=== PATIENT | female | born 1960 | race Caucasian/White ===

== ENCOUNTER 2016-12-10 08:12 | Inpatient (IN) | payer SELFPAY ==
[~2016-12-10] VITALS: Ht 154.9 cm; Wt 49.9 kg
[~2016-12-10 08:12] MED LIST: ACET-422 PO; ALPR0.25 PO; ALPR1TAB2 PO; ATOM40CA PO; CITA40TA5 PO; CLON2TAB PO; HYDR-2758 PO; HYDR-2762 PO; IBUP200T77 PO; LEVO125T PO; OMEP40CA5 PO; PANT40TA3 PO; PROP40TA PO; RISP0.5T3 PO; TRAM50TA PO
--- NOTE | 2016-12-10 08:39 | PHYS DOC ---
Past Medical History Past Medical History: Anxiety, COPD, Depression, Hypothyroid, Hepatitis Additional Past Medical Histor: HEP C, hypoxemia,ESOPHAGEAL VARISES, UTI Past Surgical History: Hysterectomy, Other Additional Past Surgical Histo: THYROID SX, ankle fx Smoking: Cigarettes Alcohol Use: None Drug Use: None Adult General Chief Complaint Chief Complaint: SHORTNESS OF BREATH HPI HPI Patient is a 56 year old female presents to the emergency department with a history of COPD. Patient states she had gone camping last weekend and developed SOA and difficulty breathing since Wednesday. Patient states she has taken over the counter medications for cough, congestion, and sinus issues without relief. Patient states she still smokes, Denies use of supplemental oxygen at home. Patient states she has had chills at home. Patient also states she has had tick bites times 2 with one tick being on her body for 3-4 days. She denies rash or any bulls eye appearance where the tick bites were located. Patient also states she has had diarrhea, denies abdominal pain, denies nausea or vomiting. Review of Systems Review of Systems Constitutional: fever and chills Eyes: Denies change in visual acuity, redness, or eye pain [] HENT: Denies nasal congestion or sore throat [] Respiratory: cough and SOA Cardiovascular: No additional information not addressed in HPI [] GI: Denies abdominal pain, nausea, vomiting, bloody stools or diarrhea. C/o diarrhea : Denies dysuria or hematuria [] Musculoskeletal: Denies back pain or joint pain [] Integument: Denies rash or skin lesions [] Neurologic: Denies headache, focal weakness or sensory changes [] Endocrine: Denies polyuria or polydipsia [] Current Medications Current Medications Current Medications Medications (Trade) Dose Ordered Sig/Latonya Start Time Stop Time Status Last Admin Dose Admin Albuterol/ Ipratropium (Duoneb) 3 ml 1X ONCE 12/10/16 09:00 12/10/16 09:01 DC 12/10/16 08:38 3 ML Ceftriaxone Sodium 1 gm/ Sodium Chloride 50 ml @ 100 mls/hr Q24H 12/11/16 09:00 Ceftriaxone Sodium 50 ml @ 100 mls/hr 1X ONCE 12/10/16 09:30 12/10/16 09:59 Doxycycline Hyclate 100 mg/ Dextrose 100 ml @ 50 mls/hr BID 12/10/16 10:00 12/10/16 09:25 50 MLS/HR Ibuprofen (Motrin) 600 mg 1X ONCE 12/10/16 09:00 12/10/16 09:01 DC 12/10/16 08:48 600 MG Methylprednisolone Sodium Succinate (SOLU-Medrol 125MG VIAL) 125 mg 1X ONCE 12/10/16 09:00 12/10/16 09:01 DC 12/10/16 08:46 125 MG Sodium Chloride 1,000 ml @ 1,000 mls/hr 1X ONCE 12/10/16 09:00 12/10/16 09:59 12/10/16 08:44 1,000 MLS/HR Allergies Allergies Allergies Coded Allergies Type Severity Reaction Last Updated Verified clindamycin Allergy Severe Hives 11/10/15 Yes morphine Adverse Reaction Intermediate PRURITIS 12/19/15 Yes Physical Exam Physical Exam Constitutional: Well developed, well nourished, no acute distress, non-toxic appearance. [] HENT: Normocephalic, atraumatic, bilateral external ears normal, oropharynx moist, no oral exudates, nose normal. [] Eyes: PERRLA, EOMI, conjunctiva normal, no discharge. [] Neck: Normal range of motion, no tenderness, supple, no stridor. [] Cardiovascular:Heart rate regular rhythm, no murmur [] Lungs & Thorax: Bilateral breath sounds decreased right anterior mid chest area Abdomen: Bowel sounds hypoactive, soft, no tenderness, no masses, no pulsatile masses. [] Skin: Warm, dry, no erythema, no rash. [] Back: No tenderness Extremities: No tenderness, no cyanosis, no clubbing, ROM intact, no edema. [] Neurologic: Alert and oriented X 3, normal motor function, normal sensory function, no focal deficits noted. [] Psychologic: Affect normal, judgement normal, mood normal. [] Current Patient Data Vital Signs Vital Signs Date Time Temp Pulse Resp B/P (MAP) Pulse Ox O2 Delivery O2 Flow Rate FiO2 12/10/16 09:27 98 20 110/61 (77) 96 12/10/16 08:38 Nasal Cannula 2.0 12/10/16 08:22 103.0 103.0 Lab Values Laboratory Tests Test 12/10/16 08:20 White Blood Count 8.8 x10^3/uL (4.0-11.0) Red Blood Count 4.71 x10^6/uL (3.50-5.40) Hemoglobin 14.9 g/dL (12.0-15.5) Hematocrit 43.4 % (36.0-47.0) Mean Corpuscular Volume 92 fL (79-100) Mean Corpuscular Hemoglobin 32 pg (25-35) Mean Corpuscular Hemoglobin Concent 34 g/dL (31-37) Red Cell Distribution Width 14.5 % (11.5-14.5) Platelet Count 143 x10^3/uL (140-400) Neutrophils (%) (Auto) 86 % (31-73) H Lymphocytes (%) (Auto) 10 % (24-48) L Monocytes (%) (Auto) 3 % (0-9) Eosinophils (%) (Auto) 0 % (0-3) Basophils (%) (Auto) 0 % (0-3) Neutrophils # (Auto) 7.6 x10^3uL (1.8-7.7) Lymphocytes # (Auto) 0.9 x10^3/uL (1.0-4.8) L Monocytes # (Auto) 0.3 x10^3/uL (0.0-1.1) Eosinophils # (Auto) 0.0 x10^3/uL (0.0-0.7) Basophils # (Auto) 0.0 x10^3/uL (0.0-0.2) Platelet Estimate Pending Sodium Level 134 mmol/L (136-145) L Potassium Level 3.4 mmol/L (3.5-5.1) L Chloride Level 98 mmol/L (98-107) Carbon Dioxide Level 22 mmol/L (21-32) Anion Gap 14 (6-14) Blood Urea Nitrogen 12 mg/dL (7-20) Creatinine 1.0 mg/dL (0.6-1.0) Estimated GFR (Cockcroft-Gault) 57.8 BUN/Creatinine Ratio 12 (6-20) Glucose Level 189 mg/dL (70-99) H Lactic Acid Level 1.6 mmol/L (0.4-2.0) Calcium Level 7.7 mg/dL (8.5-10.1) L Total Bilirubin 0.3 mg/dL (0.2-1.0) Aspartate Amino Transferase (AST) 32 U/L (15-37) Alanine Aminotransferase (ALT) 14 U/L (14-59) Alkaline Phosphatase 78 U/L (46-116) Troponin I Quantitative < 0.017 ng/mL (0.000-0.055) Total Protein 7.6 g/dL (6.4-8.2) Albumin 3.4 g/dL (3.4-5.0) Albumin/Globulin Ratio 0.8 (1.0-1.7) L Laboratory Tests 12/10/16 08:20 Laboratory Tests 12/10/16 08:20 EKG EKG EKG completed [place] [address] noted HR 101 no STEMI noted, patient with new lateral ST depression.[] Radiology/Procedures Radiology/Procedures [facility] [address] [place], [place] [id number] IMAGING REPORT Signed PATIENT: AVA BARNEY ACCOUNT: [id number] : 1960 LOCATION: ER AGE: 56 SEX: F EXAM STATUS: PRE ER ORD. PHYSICIAN: EUSEBIO MAYNARD APRN REASON: SOA, COPD decreased breath sound right anterior chest PROCEDURE: PORTABLE CHEST 1V Indication chills bodyache shortness of air and cough. A single view of the chest was obtained. Comparison is made to an examination 10/12/2015. The heart and pulmonary vessels are normal. There are suspect background changes of emphysema or fibrosis. There is retrocardiac density and a density in the right lower lung field. Findings are compatible with pneumonia. Follow-up imaging, to resolution is advised. There is no significant pleural fluid. There is no pneumothorax. IMPRESSION: Densities in both lungs suggesting pneumonia. Follow-up imaging, to resolution, advised. DICTATED and SIGNED BY: ESTHER ABREU MD DATE: 12/10/16857 CC: EUSEBIO MAYNARD APRN; DAY ELIAS ~ ] Course & Med Decision Making Course & Med Decision Making Pertinent Labs and Imaging studies reviewed. (See chart for details) Patients O2 sat on RA 85% she was provided with supplemental O2 at 2 Liters to obtain saturation of 90%. RT treatment duoneb provided for patient with labs pending, CBC, CMP, troponin, lactic acid. EKG completed and evaluated by Dr Lopez X-ray suggestive for pneumonia, Spoke with Dr Howard in regards to admission for this patient. Orders placed in computer with IV antibiotics, solumedrol and RT treatments. Patient is aware of admission. [] Dragon Disclaimer Dragon Disclaimer This electronic medical record was generated, in whole or in part, using a voice recognition dictation system. Departure Departure Impression: Primary Impression: Pneumonia Disposition: ADMITTED INPATIENT Admitting Physician: Other (Spoke with Dr Cochran) Condition: STABLE Referrals: DAY ELIAS (PCP) EUSEBIO MAYNARD APRN Dec 10, 2016 08:39
[2016-12-10 08:45] LABS: BASO % 0 % (0-3); EOS % 0 % (0-3); HEMATOCRIT 43.4 % (36.0-47.0); HEMOGLOBIN 14.9 g/dL (12.0-15.5); LYMPH # 0.9 x10^3/uL (1.0-4.8); LYMPH % 10 % (24-48); MEAN CORPUSCULAR HEMOGLOBIN 32 pg (25-35); MEAN CORPUSCULAR HGB CONC 34 g/dL (31-37); MEAN CORPUSCULAR VOLUME 92 fL (79-100); MONO % 3 % (0-9); NEUT % 86 % (31-73); PLATELET COUNT 143 x10^3/uL (140-400); RED BLOOD COUNT 4.71 x10^6/uL (3.50-5.40); RED CELL DISTRIBUTION WIDTH 14.5 % (11.5-14.5); WHITE BLOOD COUNT 8.8 x10^3/uL (4.0-11.0)
[2016-12-10 08:53] LABS: CALCIUM 7.7 mg/dL (8.5-10.1); GFR 57.8; POTASSIUM 3.4 mmol/L (3.5-5.1)
[2016-12-10 08:59] LABS: ALBUMIN 3.4 g/dL (3.4-5.0); ALBUMIN/GLOBULIN RATIO 0.8 (1.0-1.7); TOTAL BILIRUBIN 0.3 mg/dL (0.2-1.0); TOTAL PROTEIN 7.6 g/dL (6.4-8.2)
[2016-12-10] MEDS ORDERED: IBUPROFEN 600 MG TABLET. PO ONE (09:00)
[2016-12-10] MEDS ORDERED: IPRATRPIUM/ALBUTEROL 0.5/2.5MG 3 ML NEBU. NEB ONE (09:00)
[2016-12-10] MEDS ORDERED: methylPREDNISolone SOD SUCC PF 125 MG/2 ML VIAL. IV ONE (09:00)
[2016-12-10] MEDS ORDERED: IV NORMAL SALINE 1000ML BAG 1,000 ML IV ONE (09:00)
--- NOTE | 2016-12-10 09:03 | RAD ---
Indication chills bodyache shortness of air and cough. A single view of the chest was obtained. Comparison is made to an examination 10/12/2015. The heart and pulmonary vessels are normal. There are suspect background changes of emphysema or fibrosis. There is retrocardiac density and a density in the right lower lung field. Findings are compatible with pneumonia. Follow-up imaging, to resolution is advised. There is no significant pleural fluid. There is no pneumothorax. IMPRESSION: Densities in both lungs suggesting pneumonia. Follow-up imaging, to resolution, advised.
--- NOTE | 2016-12-10 09:08 | EKG ---
[facility] [address] [place] [address] Test Date: 2016-12-10 Test Time: 08:29:24 Pat Name: AVA BARNEY Department: Room: Gender: F Stars Specialist: : 1960 Requested By: EUSEBIO MAYNARD Order Number: [id number] Reading MD: Measurements Intervals [place] Rate: 101 P: 65 VA: 114 QRS: 89 QRSD: 84 T: 64 QT: 340 QTc: 442 Interpretive Statements SINUS TACHYCARDIA QRS(T) CONTOUR ABNORMALITY CONSIDER ANTEROLATERAL MYOCARDIAL DAMAGE POSSIBLY ABNORMAL ECG RI6.01 No previous ECG available for comparison
[2016-12-10 09:20] LABS: BILIRUBIN,URINE SMALL (NEG); GLUCOSE,URINE NEGATIVE (NEG); NITRITE,URINE NEGATIVE (NEG); PROTEIN,URINE 100 mg/dL (NEG-TRACE); UROBILINOGEN,URINE 0.2 mg/dL (0.2 mg/dL)
[2016-12-10] MEDS: DOXYCYCLINE HYCLATE 100 MG in IV DEXTROSE 5% 100 ML IV SCH ×2 (09:25→20:53)
[2016-12-10 09:29] LABS: RBC,URINE 0 /HPF (0-2)
[2016-12-10 09:30] LABS: BACTERIA,URINE FEW /HPF (0-FEW); SQUAMOUS EPITHELIAL CELL,UR MANY /LPF
[2016-12-10] MEDS ORDERED: IPRATRPIUM/ALBUTEROL 0.5/2.5MG 3 ML NEBU. NEB PRN (09:30)
[2016-12-10 09:36] LABS: PLT ESTIMATE ADEQUATE (ADEQUATE)
[2016-12-10 11:00] VITALS: BP 87/55
[2016-12-10] MEDS: IV NORMAL SALINE 1000ML BAG 1,000 ML IV SCH (11:20)
[2016-12-10] MEDS ORDERED: LEVO100T5 PO (11:54)
[2016-12-10] MEDS ORDERED: ALPR1TAB6 PO (11:54)
[2016-12-10] MEDS: ALBUTEROL SULFATE 2.5 MG/3 ML NEBU. NEB SCH ×4 (12:20→23:43)
--- NOTE | 2016-12-10 13:56 | PDOC1 ---
History and Physical Date of Admission Date of Admission DATE: 12/10/16 TIME: 13:00 Identification/Chief Complaint Chief Complaint CAP Diarrhea Problems: Source Source: Patient History of Present Illness History of Present Illness Mrs Russell is a 56 y/o woman with COPD, who presented to the ER with shortness on breath, cough and general aches and pains for the past week. She relates this actually started about 1 week ago with GI symptoms, incl nausea without vomiting and diarrhea, generalized myalgias/arthralgias but no fevers or chills. She had been camping with family. A few days later, she developed respiratory symptoms which gradually got worse. She also mentions finding several ticks, but no skin findings at the sites. In the ER, she was found hypoxic to 85%, and the CXR showed bilateral infiltrates suggestive of pneumonia. Past Medical History Pulmonary: COPD GI: Diverticulosis, Other (HCV, esophageal varices) Hepatobiliary: Hep A/B/C Psych: Anxiety, Depression Infectious disease: Other (HCV) Endocrine: Hypothyroidism Past Surgical History Past Surgical History: Hysterectomy Family History Family History: Diabetes Social History Smoke: <1 pack per day ALCOHOL: none Drugs: None Current Medications Current Medications Active Scripts Active Ibuprofen 200 Mg Tablet 200 Mg PO PRN Q6HRS PRN Reported Alprazolam 1 Mg Tablet 1 Tab PO TID Levothyroxine Sodium 100 Mcg Tablet 1 Tab PO DAILY Acetaminophen Pm Caplet (Acetaminophen/Diphenhydramine) 1 Each Tablet 2 Each PO HS Allergies Allergies: Coded Allergies: clindamycin (Verified Allergy, Severe, Hives, 11/10/15) morphine (Verified Adverse Reaction, Intermediate, PRURITIS, 12/19/15) ROS Review of System positive as per HPI. rest of organ system review is without findings Physical Exam General: Alert, Oriented X3, Cooperative, No acute distress Lungs: Clear to auscultation Heart: RRR Abdomen: Normal bowel sounds, Soft, Other (mild generalized TTP, sl worse in LLQ) Extremities: No edema Skin: No rashes Psych/Mental Status: Mood NL Vitals Vitals Vital Signs Date Time Temp Pulse Resp B/P (MAP) Pulse Ox O2 Delivery O2 Flow Rate FiO2 12/10/16 12:20 92 Room Air 12/10/16 11:00 98.7 81 20 87/55 (66) 98.7 12/10/16 08:38 2.0 Labs Labs Laboratory Tests Test 12/10/16 08:20 12/10/16 09:10 White Blood Count 8.8 x10^3/uL (4.0-11.0) Red Blood Count 4.71 x10^6/uL (3.50-5.40) Hemoglobin 14.9 g/dL (12.0-15.5) Hematocrit 43.4 % (36.0-47.0) Mean Corpuscular Volume 92 fL (79-100) Mean Corpuscular Hemoglobin 32 pg (25-35) Mean Corpuscular Hemoglobin Concent 34 g/dL (31-37) Red Cell Distribution Width 14.5 % (11.5-14.5) Platelet Count 143 x10^3/uL (140-400) Neutrophils (%) (Auto) 86 % (31-73) Lymphocytes (%) (Auto) 10 % (24-48) Monocytes (%) (Auto) 3 % (0-9) Eosinophils (%) (Auto) 0 % (0-3) Basophils (%) (Auto) 0 % (0-3) Neutrophils # (Auto) 7.6 x10^3uL (1.8-7.7) Lymphocytes # (Auto) 0.9 x10^3/uL (1.0-4.8) Monocytes # (Auto) 0.3 x10^3/uL (0.0-1.1) Eosinophils # (Auto) 0.0 x10^3/uL (0.0-0.7) Basophils # (Auto) 0.0 x10^3/uL (0.0-0.2) Segmented Neutrophils % 50 % (35-66) Band Neutrophils % 32 % (0-9) Lymphocytes % 10 % (24-48) Monocytes % 1 % (0-10) Metamyelocytes % 7 % (0-0) Dohle Bodies Present Platelet Estimate Adequate (ADEQUATE) Sodium Level 134 mmol/L (136-145) Potassium Level 3.4 mmol/L (3.5-5.1) Chloride Level 98 mmol/L (98-107) Carbon Dioxide Level 22 mmol/L (21-32) Anion Gap 14 (6-14) Blood Urea Nitrogen 12 mg/dL (7-20) Creatinine 1.0 mg/dL (0.6-1.0) Estimated GFR (Cockcroft-Gault) 57.8 BUN/Creatinine Ratio 12 (6-20) Glucose Level 189 mg/dL (70-99) Lactic Acid Level 1.6 mmol/L (0.4-2.0) Calcium Level 7.7 mg/dL (8.5-10.1) Total Bilirubin 0.3 mg/dL (0.2-1.0) Aspartate Amino Transf (AST/SGOT) 32 U/L (15-37) Alanine Aminotransferase (ALT/SGPT) 14 U/L (14-59) Alkaline Phosphatase 78 U/L (46-116) Troponin I Quantitative < 0.017 ng/mL (0.000-0.055) Total Protein 7.6 g/dL (6.4-8.2) Albumin 3.4 g/dL (3.4-5.0) Albumin/Globulin Ratio 0.8 (1.0-1.7) Urine Collection Type Void Urine Color Yellow Urine Clarity Clear Urine pH 6.0 Urine Specific [place] 1.020 Urine Protein 100 mg/dL (NEG-TRACE) Urine Glucose (UA) Negative mg/dL (NEG) Urine Ketones (Stick) 40 mg/dL (NEG) Urine Blood Negative (NEG) Urine Nitrite Negative (NEG) Urine Bilirubin Small (NEG) Urine Urobilinogen Dipstick 0.2 mg/dL (0.2 mg/dL) Urine Leukocyte Esterase Negative (NEG) Urine RBC 0 /HPF (0-2) Urine WBC 1-4 /HPF (0-4) Urine Squamous Epithelial Cells Many /LPF Urine Bacteria Few /HPF (0-FEW) Urine Mucus Slight /LPF Laboratory Tests Test 12/10/16 08:20 12/10/16 09:10 White Blood Count 8.8 x10^3/uL (4.0-11.0) Red Blood Count 4.71 x10^6/uL (3.50-5.40) Hemoglobin 14.9 g/dL (12.0-15.5) Hematocrit 43.4 % (36.0-47.0) Mean Corpuscular Volume 92 fL (79-100) Mean Corpuscular Hemoglobin 32 pg (25-35) Mean Corpuscular Hemoglobin Concent 34 g/dL (31-37) Red Cell Distribution Width 14.5 % (11.5-14.5) Platelet Count 143 x10^3/uL (140-400) Neutrophils (%) (Auto) 86 % (31-73) Lymphocytes (%) (Auto) 10 % (24-48) Monocytes (%) (Auto) 3 % (0-9) Eosinophils (%) (Auto) 0 % (0-3) Basophils (%) (Auto) 0 % (0-3) Neutrophils # (Auto) 7.6 x10^3uL (1.8-7.7) Lymphocytes # (Auto) 0.9 x10^3/uL (1.0-4.8) Monocytes # (Auto) 0.3 x10^3/uL (0.0-1.1) Eosinophils # (Auto) 0.0 x10^3/uL (0.0-0.7) Basophils # (Auto) 0.0 x10^3/uL (0.0-0.2) Segmented Neutrophils % 50 % (35-66) Band Neutrophils % 32 % (0-9) Lymphocytes % 10 % (24-48) Monocytes % 1 % (0-10) Metamyelocytes % 7 % (0-0) Dohle Bodies Present Platelet Estimate Adequate (ADEQUATE) Sodium Level 134 mmol/L (136-145) Potassium Level 3.4 mmol/L (3.5-5.1) Chloride Level 98 mmol/L (98-107) Carbon Dioxide Level 22 mmol/L (21-32) Anion Gap 14 (6-14) Blood Urea Nitrogen 12 mg/dL (7-20) Creatinine 1.0 mg/dL (0.6-1.0) Estimated GFR (Cockcroft-Gault) 57.8 BUN/Creatinine Ratio 12 (6-20) Glucose Level 189 mg/dL (70-99) Lactic Acid Level 1.6 mmol/L (0.4-2.0) Calcium Level 7.7 mg/dL (8.5-10.1) Total Bilirubin 0.3 mg/dL (0.2-1.0) Aspartate Amino Transf (AST/SGOT) 32 U/L (15-37) Alanine Aminotransferase (ALT/SGPT) 14 U/L (14-59) Alkaline Phosphatase 78 U/L (46-116) Troponin I Quantitative < 0.017 ng/mL (0.000-0.055) Total Protein 7.6 g/dL (6.4-8.2) Albumin 3.4 g/dL (3.4-5.0) Albumin/Globulin Ratio 0.8 (1.0-1.7) Urine Collection Type Void Urine Color Yellow Urine Clarity Clear Urine pH 6.0 Urine Specific [place] 1.020 Urine Protein 100 mg/dL (NEG-TRACE) Urine Glucose (UA) Negative mg/dL (NEG) Urine Ketones (Stick) 40 mg/dL (NEG) Urine Blood Negative (NEG) Urine Nitrite Negative (NEG) Urine Bilirubin Small (NEG) Urine Urobilinogen Dipstick 0.2 mg/dL (0.2 mg/dL) Urine Leukocyte Esterase Negative (NEG) Urine RBC 0 /HPF (0-2) Urine WBC 1-4 /HPF (0-4) Urine Squamous Epithelial Cells Many /LPF Urine Bacteria Few /HPF (0-FEW) Urine Mucus Slight /LPF VTE Prophylaxis Ordered VTE Prophylaxis Devices: No VTE Pharmacological Prophylaxi: Yes Assessment/Plan Assessment/Plan Mrs Russell is a 56 y/o woman with COPD, who presented with SOB to the ER and was found with bilateral PNA. She has been started on doxy and ceftriax in the ER; will continue for now. Steroids and nebulizers for COPD exacerbation will continue. she has both mucolytic and cough suppressnats available, as cough is causing bowel incontinence. She denies any history of antibiotics in the past 6 months, and her presentation is suspicious for either viral or toxic gastroenteritis. Will treat symptomatically with imodium. Dehydration resulting from diarrhea and acute anorexia will be addressed with IV fluids. Diet as tolerated. Magnesium and potassum will be repleted and monitored by labs. Her home medication of alprazolam and Tylenol PM will be continued. She will receive lovenox prophylaxis. KRISTOFER ALBA MD Dec 10, 2016 13:56
[2016-12-10] MEDS ORDERED: LOPERAMIDE 2 MG CAPSULE PO PRN (14:00)
[2016-12-10] MEDS: POTASSIUM CHLORIDE 20 MEQ TABLET.ER. PO SCH ×2 (14:11→20:26)
[2016-12-10] MEDS: guaiFENesin/CODEINE 100mg/10mg 5 ML LIQUID PO PRN ×2 (14:11→19:08)
[2016-12-10] MEDS: LOPERAMIDE 2 MG CAPSULE PO PRN ×4 (14:12→21:39)
[2016-12-10 14:38] VITALS: BP 87/55
[2016-12-10 15:00] VITALS: BP 89/56
[2016-12-10] MEDS: LEVOTHYROXINE 100 MCG TABLET PO SCH (16:27)
[2016-12-10] MEDS: ALPRAZolam 1 MG TABLET PO SCH ×2 (16:27→20:27)
[2016-12-10 19:00] VITALS: BP 94/60
[2016-12-10] MEDS ORDERED: MAGNESIUM SULFATE 2GM 50 ML IV ONE (19:00)
[2016-12-10] MEDS ORDERED: methylPREDNISolone SOD SUCC PF 125 MG/2 ML VIAL. IV SCH (21:00)
[2016-12-10] MEDS ORDERED: ALPRAZolam 1 MG TABLET PO SCH (21:00)
[2016-12-10] MEDS: diphenhydrAMINE HCL 25 MG CAPSULE PO PRN (21:39)
[2016-12-10] MEDS ORDERED: ONDANSETRON PF 4 MG/2 ML VIAL. IV PRN (22:30)
[2016-12-10 23:00] VITALS: BP 115/74
[2016-12-10] MEDS: metroNIDAZOLE 500 MG TABLET PO SCH (23:04)
--- NOTE | 2016-12-11 00:19 | ACF ---
Admission Forms Criteria PNEUMONIA, COMMUNITY ACQUIRED Clinical Indications for Admission to Inpatient Care (Place 'X' for any and all applicable criteria): Admission to inpatient status for two midnights or more is indicated for ANY ONE of the following (1)(2)(3): [ ]I. Hypoxia [ ]II. Hemodynamic instability [ ]III. Altered mental status that is severe or persistent [ ]IV. Dehydration that is severe or persistent. [ ]V. Bacteremia [ ]. Moderate-risk or high-risk category patients (Pneumonia Severity Index ( PSI) class IV or V, or CURB-65 score of 3 or greater). [ ]VII. Intermediate-risk category patients (e.g., PSI class III or CURB-65 score 2) who do not improve with outpatient and observation care treatment [ ]VIII. Outpatient treatment failure as indicated by 1 or more of the following(9): [ ]a) Failure to respond to antibiotic (eg, resistant organism) [ ]b) Clinically significant adverse effects from medication (eg, vomiting) [ ]c) Complications of pneumonia (eg, empyema, bacteremia) [ ]d) Significant worsening of comorbid cond necessitating inpatient care (eg, chronic heart failure) [X]IX. Appropriate diagnostic testing and treatment unavailable in outpatient or recovery facility (eg, testing or infection control measures unavailable) [ ]X. Respiratory finding (eg. tachypnea) that do not respond to outpatient observation care treatment [ ]XI. Complicated pleural effusions (eg, emphysema, exudative, loculated) [ ]XII. Immunocompromised patients (e.g., AIDS, chronic steroid use) at moderate or high risk based on clinical evaluation. Extended stay beyond goal length of stay may be needed for (20) [ ]a) Unclear diagnosis [ ]b) Pleural disease [ ]c) Severe pneumonia or treatment failure [ ]d) Respiratory failure [ ]e) New onset hyponatremia (serum Na concentration less than 135 mEq/L(mmol/ L) [ ]f) Clinically significant comorbid illness (eg, heart failure, atrial fibrillation with rapid heart rate, alcohol withdrawal, renal insufficiency)(34)(35) [ ]g) Comorbid acute exacerbation of COPD(36) [ ]h) Concomitant diagnosis of malignancy [ ]i) Concomitant altered mental status [ ]j) Culture-identified Gram-negative or antibiotic-resistant organism (eg, Pseudomonas, methicillin-resistant Staphylococcus aureus MRSA)(30) [ ]k) Healthcare-associated pneumonia (36) The original [facility] content created by [facility] has been revised. The portions of the content which have been revised are identified through the use of italic text, and [facility] has neither reviewed nor approved the modified material. All other unmodified content is copyright [facility]. Please see references footnoted in the original [facility] edition 2015 Admission Criteria Met?: Yes KARLY WOODARD Dec 11, 2016 00:19 KRISTOFER ALBA MD Dec 12, 2016 20:25
[2016-12-11] MEDS ORDERED: PROCHLORPERAZINE 10 MG/2 ML VIAL. IV PRN (01:45)
[2016-12-11] MEDS ORDERED: ONDANSETRON PF 4 MG/2 ML VIAL. IV PRN (01:45)
[2016-12-11] MEDS ORDERED: ONDANSETRON PF 4 MG/2 ML VIAL. IV ONE (02:00)
[2016-12-11 03:19] VITALS: BP 94/61
[2016-12-11] MEDS: IV NORMAL SALINE 1000ML BAG 1,000 ML IV SCH (03:47)
[2016-12-11] MEDS: ALBUTEROL SULFATE 2.5 MG/3 ML NEBU. NEB SCH ×6 (04:00→23:15)
[2016-12-11] MEDS: guaiFENesin/CODEINE 100mg/10mg 5 ML LIQUID PO PRN ×3 (04:57→21:04)
[2016-12-11 05:51] LABS: BASO % 0 % (0-3); EOS % 0 % (0-3); HEMATOCRIT 40.2 % (36.0-47.0); HEMOGLOBIN 13.2 g/dL (12.0-15.5); LYMPH # 0.9 x10^3/uL (1.0-4.8); LYMPH % 6 % (24-48); MEAN CORPUSCULAR HEMOGLOBIN 31 pg (25-35); MEAN CORPUSCULAR HGB CONC 33 g/dL (31-37); MEAN CORPUSCULAR VOLUME 95 fL (79-100); MONO % 2 % (0-9); NEUT % 92 % (31-73); PLATELET COUNT 150 x10^3/uL (140-400); RED BLOOD COUNT 4.25 x10^6/uL (3.50-5.40); WHITE BLOOD COUNT 15.7 x10^3/uL (4.0-11.0)
[2016-12-11] MEDS: LEVOTHYROXINE 100 MCG TABLET PO SCH (05:53)
[2016-12-11 06:06] LABS: CALCIUM 7.4 mg/dL (8.5-10.1); GFR 57.8; POTASSIUM 4.1 mmol/L (3.5-5.1)
[2016-12-11 07:00] VITALS: BP 99/60
[2016-12-11] MEDS ORDERED: LEVOTHYROXINE 100 MCG TABLET PO SCH (07:00)
[2016-12-11] MEDS: ALPRAZolam 1 MG TABLET PO SCH ×3 (08:42→21:03)
[2016-12-11] MEDS: metroNIDAZOLE 500 MG TABLET PO SCH ×3 (08:42→21:04)
[2016-12-11] MEDS: POTASSIUM CHLORIDE 20 MEQ TABLET.ER. PO SCH ×2 (08:43→21:04)
[2016-12-11] MEDS: DOXYCYCLINE HYCLATE 100 MG in IV DEXTROSE 5% 100 ML IV SCH ×2 (08:46→21:03)
[2016-12-11] MEDS: ENOXAPARIN 40 MG/0.4 ML SYRINGE. SQ SCH (08:52)
[2016-12-11] MEDS ORDERED: predniSONE 20 MG TABLET PO SCH (09:00)
[2016-12-11 11:11] VITALS: BP 88/57
[2016-12-11] MEDS ORDERED: IV NORMAL SALINE 1000ML BAG 1,000 ML IV ONE (12:00)
[2016-12-11] MEDS ORDERED: CALCIUM CARBONATE 500 MG TAB.CHEW PO PRN (12:00)
[2016-12-11] MEDS: ACETAMINOPHEN 500 MG TABLET PO PRN (12:29)
[2016-12-11] MEDS: SUCRALFATE 1 GM TABLET. PO PRN ×3 (12:29→21:03)
[2016-12-11] MEDS: PANTOPRAZOLE 40 MG TABLET.DR. PO SCH ×2 (12:29→16:55)
--- NOTE | 2016-12-11 13:15 | PDOC ---
Provider Note Provider Note [id number] acute resp fail abnl cxr copd w ae pneumonia see orders. JOSELYN SIEGEL MD Dec 11, 2016 13:15
[2016-12-11] MEDS ORDERED: methylPREDNISolone SOD SUCC PF 40 MG/ML VIAL. IV SCH (13:30)
[2016-12-11] MEDS: BUDESONIDE 0.5 MG/2 ML NEBU. NEB SCH ×2 (13:30→19:51)
--- NOTE | 2016-12-11 13:34 | PDOC ---
PROGRESS NOTES Chief Complaint Chief Complaint COPD, acute bronchtis and bilateral PNA. sepsis cough, dyspnea, hypoxia History of Present Illness History of Present Illness Pulm consulted, Id consult today IV fluid, cont steroids, abx and nebs diarrhea has slowed, cont flagyl, stool cx pending, may Dc abx tomorrow if no sample Vitals Vitals Vital Signs Date Time Temp Pulse Resp B/P (MAP) Pulse Ox O2 Delivery O2 Flow Rate FiO2 12/11/16 11:43 Nasal Cannula 3.0 12/11/16 11:11 102.2 91 18 88/57 (67) 93 102.2 Physical Exam General: Alert, Oriented X3, Cooperative, mild distress Lungs: Other (rales, end with nearly normal volumes) Abdomen: Normal bowel sounds, Soft, No tenderness, Other (mild generalized TTP , sl worse in LLQ) Extremities: No edema Skin: No rashes Labs LABS Laboratory Tests Test 12/11/16 05:00 White Blood Count 15.7 x10^3/uL (4.0-11.0) Red Blood Count 4.25 x10^6/uL (3.50-5.40) Hemoglobin 13.2 g/dL (12.0-15.5) Hematocrit 40.2 % (36.0-47.0) Mean Corpuscular Volume 95 fL (79-100) Mean Corpuscular Hemoglobin 31 pg (25-35) Mean Corpuscular Hemoglobin Concent 33 g/dL (31-37) Red Cell Distribution Width 15.0 % (11.5-14.5) Platelet Count 150 x10^3/uL (140-400) Neutrophils (%) (Auto) 92 % (31-73) Lymphocytes (%) (Auto) 6 % (24-48) Monocytes (%) (Auto) 2 % (0-9) Eosinophils (%) (Auto) 0 % (0-3) Basophils (%) (Auto) 0 % (0-3) Neutrophils # (Auto) 14.4 x10^3uL (1.8-7.7) Lymphocytes # (Auto) 0.9 x10^3/uL (1.0-4.8) Monocytes # (Auto) 0.4 x10^3/uL (0.0-1.1) Eosinophils # (Auto) 0.0 x10^3/uL (0.0-0.7) Basophils # (Auto) 0.0 x10^3/uL (0.0-0.2) Sodium Level 138 mmol/L (136-145) Potassium Level 4.1 mmol/L (3.5-5.1) Chloride Level 104 mmol/L (98-107) Carbon Dioxide Level 22 mmol/L (21-32) Anion Gap 12 (6-14) Blood Urea Nitrogen 13 mg/dL (7-20) Creatinine 1.0 mg/dL (0.6-1.0) Estimated GFR (Cockcroft-Gault) 57.8 Glucose Level 134 mg/dL (70-99) Calcium Level 7.4 mg/dL (8.5-10.1) Magnesium Level 2.3 mg/dL (1.8-2.4) Review of Systems Review of Systems nausea, poor po intake dyspnea cough, tachypnea and wheeze Assessment and Plan Assessmemt and Plan Problems Medical Problems: (1) Pneumonia Status: Acute Problems: Comment Review of Relevant I have reviewed the following items vasquez (where applicable) has been applied. Labs Laboratory Tests Test 12/10/16 08:20 12/10/16 09:10 12/11/16 05:00 White Blood Count 8.8 x10^3/uL (4.0-11.0) 15.7 x10^3/uL (4.0-11.0) Red Blood Count 4.71 x10^6/uL (3.50-5.40) 4.25 x10^6/uL (3.50-5.40) Hemoglobin 14.9 g/dL (12.0-15.5) 13.2 g/dL (12.0-15.5) Hematocrit 43.4 % (36.0-47.0) 40.2 % (36.0-47.0) Mean Corpuscular Volume 92 fL (79-100) 95 fL (79-100) Mean Corpuscular Hemoglobin 32 pg (25-35) 31 pg (25-35) Mean Corpuscular Hemoglobin Concent 34 g/dL (31-37) 33 g/dL (31-37) Red Cell Distribution Width 14.5 % (11.5-14.5) 15.0 % (11.5-14.5) Platelet Count 143 x10^3/uL (140-400) 150 x10^3/uL (140-400) Neutrophils (%) (Auto) 86 % (31-73) 92 % (31-73) Lymphocytes (%) (Auto) 10 % (24-48) 6 % (24-48) Monocytes (%) (Auto) 3 % (0-9) 2 % (0-9) Eosinophils (%) (Auto) 0 % (0-3) 0 % (0-3) Basophils (%) (Auto) 0 % (0-3) 0 % (0-3) Neutrophils # (Auto) 7.6 x10^3uL (1.8-7.7) 14.4 x10^3uL (1.8-7.7) Lymphocytes # (Auto) 0.9 x10^3/uL (1.0-4.8) 0.9 x10^3/uL (1.0-4.8) Monocytes # (Auto) 0.3 x10^3/uL (0.0-1.1) 0.4 x10^3/uL (0.0-1.1) Eosinophils # (Auto) 0.0 x10^3/uL (0.0-0.7) 0.0 x10^3/uL (0.0-0.7) Basophils # (Auto) 0.0 x10^3/uL (0.0-0.2) 0.0 x10^3/uL (0.0-0.2) Segmented Neutrophils % 50 % (35-66) Band Neutrophils % 32 % (0-9) Lymphocytes % 10 % (24-48) Monocytes % 1 % (0-10) Metamyelocytes % 7 % (0-0) Dohle Bodies Present Platelet Estimate Adequate (ADEQUATE) Sodium Level 134 mmol/L (136-145) 138 mmol/L (136-145) Potassium Level 3.4 mmol/L (3.5-5.1) 4.1 mmol/L (3.5-5.1) Chloride Level 98 mmol/L (98-107) 104 mmol/L (98-107) Carbon Dioxide Level 22 mmol/L (21-32) 22 mmol/L (21-32) Anion Gap 14 (6-14) 12 (6-14) Blood Urea Nitrogen 12 mg/dL (7-20) 13 mg/dL (7-20) Creatinine 1.0 mg/dL (0.6-1.0) 1.0 mg/dL (0.6-1.0) Estimated GFR (Cockcroft-Gault) 57.8 57.8 BUN/Creatinine Ratio 12 (6-20) Glucose Level 189 mg/dL (70-99) 134 mg/dL (70-99) Lactic Acid Level 1.6 mmol/L (0.4-2.0) Calcium Level 7.7 mg/dL (8.5-10.1) 7.4 mg/dL (8.5-10.1) Magnesium Level 1.7 mg/dL (1.8-2.4) 2.3 mg/dL (1.8-2.4) Total Bilirubin 0.3 mg/dL (0.2-1.0) Aspartate Amino Transf (AST/SGOT) 32 U/L (15-37) Alanine Aminotransferase (ALT/SGPT) 14 U/L (14-59) Alkaline Phosphatase 78 U/L (46-116) Troponin I Quantitative < 0.017 ng/mL (0.000-0.055) Total Protein 7.6 g/dL (6.4-8.2) Albumin 3.4 g/dL (3.4-5.0) Albumin/Globulin Ratio 0.8 (1.0-1.7) Urine Collection Type Void Urine Color Yellow Urine Clarity Clear Urine pH 6.0 Urine Specific [place] 1.020 Urine Protein 100 mg/dL (NEG-TRACE) Urine Glucose (UA) Negative mg/dL (NEG) Urine Ketones (Stick) 40 mg/dL (NEG) Urine Blood Negative (NEG) Urine Nitrite Negative (NEG) Urine Bilirubin Small (NEG) Urine Urobilinogen Dipstick 0.2 mg/dL (0.2 mg/dL) Urine Leukocyte Esterase Negative (NEG) Urine RBC 0 /HPF (0-2) Urine WBC 1-4 /HPF (0-4) Urine Squamous Epithelial Cells Many /LPF Urine Bacteria Few /HPF (0-FEW) Urine Mucus Slight /LPF Laboratory Tests Test 12/11/16 05:00 White Blood Count 15.7 x10^3/uL (4.0-11.0) Red Blood Count 4.25 x10^6/uL (3.50-5.40) Hemoglobin 13.2 g/dL (12.0-15.5) Hematocrit 40.2 % (36.0-47.0) Mean Corpuscular Volume 95 fL (79-100) Mean Corpuscular Hemoglobin 31 pg (25-35) Mean Corpuscular Hemoglobin Concent 33 g/dL (31-37) Red Cell Distribution Width 15.0 % (11.5-14.5) Platelet Count 150 x10^3/uL (140-400) Neutrophils (%) (Auto) 92 % (31-73) Lymphocytes (%) (Auto) 6 % (24-48) Monocytes (%) (Auto) 2 % (0-9) Eosinophils (%) (Auto) 0 % (0-3) Basophils (%) (Auto) 0 % (0-3) Neutrophils # (Auto) 14.4 x10^3uL (1.8-7.7) Lymphocytes # (Auto) 0.9 x10^3/uL (1.0-4.8) Monocytes # (Auto) 0.4 x10^3/uL (0.0-1.1) Eosinophils # (Auto) 0.0 x10^3/uL (0.0-0.7) Basophils # (Auto) 0.0 x10^3/uL (0.0-0.2) Sodium Level 138 mmol/L (136-145) Potassium Level 4.1 mmol/L (3.5-5.1) Chloride Level 104 mmol/L (98-107) Carbon Dioxide Level 22 mmol/L (21-32) Anion Gap 12 (6-14) Blood Urea Nitrogen 13 mg/dL (7-20) Creatinine 1.0 mg/dL (0.6-1.0) Estimated GFR (Cockcroft-Gault) 57.8 Glucose Level 134 mg/dL (70-99) Calcium Level 7.4 mg/dL (8.5-10.1) Magnesium Level 2.3 mg/dL (1.8-2.4) Microbiology 12/10/16 Blood Culture - Preliminary, Resulted NO GROWTH AFTER 1 DAY Medications Current Medications Methylprednisolone Sodium Succinate (SOLU-Medrol 125MG VIAL) 125 mg 1X ONCE IV Last administered on 12/10/16t 08:46; Start 12/10/16 at 09:00; Stop 12/10/16 at 09:01; Status DC Albuterol/ Ipratropium (Duoneb) 3 ml 1X ONCE NEB Last administered on 08:38; Start 12/10/16 at 09:00; Stop 12/10/16 at 09:01; Status DC Ibuprofen (Motrin) 600 mg 1X ONCE PO Last administered on 12/10/16 08:48; Start 12/10/16 at 09:00; Stop 12/10/16 at 09:01; Status DC Sodium Chloride 1,000 ml @ 1,000 mls/hr 1X ONCE IV Last administered on 08:44; Start 12/10/16 at 09:00; Stop 12/10/16 at 09:59; Status DC Ceftriaxone Sodium 50 ml @ 100 mls/hr 1X ONCE IV Last administered on 11:19; Start 12/10/16 at 09:30; Stop 12/10/16 at 09:59; Status DC Doxycycline Hyclate 100 mg/ Dextrose 100 ml @ 50 mls/hr BID IV Last administered on 12/11/16 08:46; Start 12/10/16 at 10:00 Ceftriaxone Sodium 1 gm/ Sodium Chloride 50 ml @ 100 mls/hr Q24H IV Last administered on 12/11/16 08:44; Start 12/11/16 at 09:00 Sodium Chloride 1,000 ml @ 75 mls/hr [id number] IV Last administered on 03:47; Start 12/10/16 at 10:00; Stop 12/11/16 at 09:59; Status DC Albuterol Sulfate (Ventolin Neb Soln) 2.5 mg Q4HRS NEB Last administered on 11:42; Start 12/10/16 at 12:00 Albuterol/ Ipratropium (Duoneb) 3 ml PRN Q6HRS PRN NEB SOA; Start 12/10/16 at 09:30 Methylprednisolone Sodium Succinate (SOLU-Medrol 125MG VIAL) 125 mg BID IV Last administered on 12/10/16 20:27; Start 12/10/16 at 21:00; Stop 12/10/16 at 23:00; Status DC Loperamide HCl (Imodium) 4 mg PRN Q15MIN PRN PO DIARRHEA Last administered on 21:39; Start 12/10/16 at 14:00 Loperamide HCl (Imodium) 4 mg PRN Q15MIN PRN PO DIARRHEA; Start 12/10/16 at 14: 00; Status UNV Prednisone (Prednisone) 40 mg DAILY PO Last administered on 12/11/16 08:43; Start 12/11/16 at 09:00; Stop 12/11/16 at 13:17; Status DC Potassium Chloride (Klor-Con) 20 meq BID PO Last administered on 12/11/16 08: 43; Start 12/10/16 at 14:00 Guaifenesin (Mucinex) 600 mg BID PO Last administered on 12/11/16 08:43; Start 12/10/16 at 14:00 Guaifenesin/ Codeine Phosphate (Robitussin Ac) 5 ml PRN Q6HRS PRN PO COUGH Last administered on 12/11/16 08:42; Start 12/10/16 at 14:00 Alprazolam (Xanax) 1 mg TID PO ; Start 12/10/16 at 21:00; Stop 12/10/16 at 21:00 ; Status DC Levothyroxine Sodium (Synthroid) 100 mcg DAILY07 PO ; Start 12/11/16 at 07:00; Stop 12/11/16 at 07:00; Status DC Acetaminophen (Tylenol) 1,000 mg PRN QHS PRN PO MILD PAIN / INSOMNIA Last administered on 12/11/16 12:29; Start 12/10/16 at 15:15 Diphenhydramine HCl (Benadryl) 50 mg PRN QHS PRN PO MILD PAIN / INSOMNIA Last administered on 12/10/16 21:39; Start 12/10/16 at 15:15 Levothyroxine Sodium (Synthroid) 100 mcg DAILY07 PO Last administered on 05:53; Start 12/10/16 at 16:15 Alprazolam (Xanax) 1 mg TID PO Last administered on 12/11/16 08:42; Start at 16:30 Magnesium Sulfate/ Dextrose 50 ml @ 25 mls/hr 1X ONCE IV Last administered on 12/10/16 19:03; Start 12/10/16 at 19:00; Stop 12/10/16 at 20:59; Status DC Enoxaparin Sodium (Lovenox 40mg Syringe) 40 mg Q24H SQ ; Start 12/11/16 at 09:00 Metronidazole (Flagyl) 500 mg TID PO Last administered on 12/11/16 08:42; Start 12/10/16 at 22:00 Ondansetron HCl (Zofran) 4 mg PRN Q6HRS PRN IV NAUSEA/VOMITING Last administered on 12/10/16 23:05; Start 12/10/16 at 22:30; Stop 12/11/16 at 01:47 ; Status DC Ondansetron HCl (Zofran) 8 mg PRN Q6HRS PRN IV NAUSEA/VOMITING, 1ST CHOICE; Start 12/11/16 at 01:45 Ondansetron HCl (Zofran) 8 mg 1X ONCE IV Last administered on 12/11/16 01:50 ; Start 12/11/16 at 02:00; Stop 12/11/16 at 02:01; Status DC Prochlorperazine Edisylate (Compazine) 10 mg PRN Q8HRS PRN IV NAUSEA/VOMITING, 2ND CHOICE; Start 12/11/16 at 01:45 Sodium Chloride 1,000 ml @ 1,000 mls/hr 1X ONCE IV Last administered on 12:30; Start 12/11/16 at 12:00; Stop 12/11/16 at 12:59; Status DC Pantoprazole Sodium (Protonix) 40 mg BIDAC PO Last administered on 12/11/16 12 :29; Start 12/11/16 at 12:00 Sucralfate (Carafate) 1 gm QIDACHS PRN PO reflux Last administered on 12:29; Start 12/11/16 at 12:00 Calcium Carbonate/ Glycine (Tums) 500 mg PRN AFTMEALHC PRN PO INDIGESTION; Start 12/11/16 at 12:00 Methylprednisolone Sodium Succinate (SOLU-Medrol 40MG VIAL) 40 mg Q12HR IV ; Start 12/11/16 at 13:30; Status Cancel Budesonide (Pulmicort) 0.5 mg RTBID NEB ; Start 12/11/16 at 13:30 Methylprednisolone Sodium Succinate (SOLU-Medrol 40MG VIAL) 40 mg Q12HR IV ; Start 12/11/16 at 21:00 Active Scripts Active Ibuprofen 200 Mg Tablet 200 Mg PO PRN Q6HRS PRN Reported Alprazolam 1 Mg Tablet 1 Tab PO TID Levothyroxine Sodium 100 Mcg Tablet 1 Tab PO DAILY Acetaminophen Pm Caplet (Acetaminophen/Diphenhydramine) 1 Each Tablet 2 Each PO HS Vitals/I & O Vital Sign - Last 24 Hours 12/10/16 12/10/16 12/10/16 12/10/16 14:38 15:00 16:40 19:00 Temp 98.7 98.6 98.6 98.7 98.6 98.6 Pulse 81 80 86 Resp 20 19 B/P (MAP) 87/55 (66) 89/56 (67) 94/60 (71) Pulse Ox 92 93 95 95 O2 Delivery Nasal Cannula Nasal Cannula Nasal Cannula O2 Flow Rate 2.0 2.0 3.0 2.0 12/10/16 12/10/16 12/10/16 12/10/16 19:59 20:00 23:00 23:43 Temp 98.8 98.8 Pulse 85 Resp 19 B/P (MAP) 115/74 (88) Pulse Ox 97 O2 Delivery Nasal Cannula Nasal Cannula Nasal Cannula Nasal Cannula O2 Flow Rate 3.0 2.0 2.0 3.0 12/11/16 12/11/16 12/11/16 12/11/16 03:19 07:00 07:18 08:00 Temp 98.7 99.8 98.7 99.8 Pulse 83 96 Resp 19 20 B/P (MAP) 94/61 (72) 99/60 (73) Pulse Ox 96 91 91 O2 Delivery Nasal Cannula Nasal Cannula Nasal Cannula Nasal Cannula O2 Flow Rate 2.0 3.0 3.0 3.0 12/11/16 12/11/16 11:11 11:43 Temp 102.2 102.2 Pulse 91 Resp 18 B/P (MAP) 88/57 (67) Pulse Ox 93 O2 Delivery Nasal Cannula Nasal Cannula O2 Flow Rate 4.0 3.0 Intake and Output 12/10/16 12/10/16 12/11/16 15:00 23:00 07:00 Intake Total 120 ml Output Total 250 ml Balance -250 ml 120 ml JACQUES BURK MD Dec 11, 2016 13:34
[2016-12-11] MEDS ORDERED: NICOTINE 14MG PATCH. TD PRN (13:45)
--- NOTE | 2016-12-11 14:12 | CONS ---
DATE OF CONSULTATION: 12/11/2016 I was asked to see this 56-year-old lady for shortness of breath, cough, and pneumonia. HISTORY OF PRESENT ILLNESS: She does have history of [id number] smoking, continues to smoke about 6 cigarettes per day. She has COPD. She started to have increased shortness of breath, cough with sputum production, fever and chills about 5-6 days ago. She does have runny nose. She denies chest pain or gastroesophageal reflux symptoms. PAST MEDICAL HISTORY: COPD, hepatitis C. ALLERGIES: CLINDAMYCIN, MORPHINE. MEDICATIONS: Currently, she is on Rocephin, doxycycline, albuterol, prednisone, Xanax, levothyroxine. SOCIAL HISTORY: History of 80-[id number] smoking, continues to smoke 6 cigarettes per day. She does not drink alcohol. FAMILY HISTORY: Positive for diabetes. REVIEW OF SYSTEMS: As mentioned as above, other systems otherwise negative. PHYSICAL EXAMINATION: GENERAL: This is a chronically ill-appearing lady. VITAL SIGNS: Her O2 saturation is 93% on 3 liters of oxygen, respiratory rate 18, heart rate 91, blood pressure 90/57, temperature 102.2. HEENT: Normocephalic, atraumatic. Pupils equal, round, reactive to light. Throat is clear. Nose: There is inflamed mucosa. NECK: There is no JVD, lymphadenopathy, or thyromegaly. CARDIOVASCULAR: Regular rate and rhythm. PMI is nondisplaced. CHEST: Inspection is normal. LUNGS: There is bilateral end expiratory wheezing, basilar crackles, dullness at the bases. ABDOMEN: Soft. Bowel sounds are good. There is no mass. EXTREMITIES: There is no edema. LYMPHATICS: There is no lymphadenopathy. SKIN: Warm. NEUROLOGIC: Alert and oriented x 3. LABORATORY DATA: I reviewed the following lab data: WBC 15.7, hemoglobin 13.2, platelets 150, sodium 138, potassium 4.1, chloride 104, CO2 of 22, glucose 134, BUN 13, creatinine 1. Chest x-ray shows COPD changes. Retrocardiac density and density in right lower lobe area. IMPRESSION: 1. Acute respiratory failure, multifactorial in etiology. 2. Pneumonia. 3. Abnormal chest x-ray. 4. Acute exacerbation of chronic obstructive pulmonary disease. 5. Smoker. 6. Hepatitis C. PLAN AND RECOMMENDATIONS: 1. Titrate FiO2 to keep O2 saturation 92%. 2. Bronchodilator. 3. Add inhaled corticosteroid. 4. Continue antibiotic. 5. I will change prednisone to Solu-Medrol 40 mg IV q. 12 hours. 6. Protonix for stress ulcer prophylaxis. 7. Lovenox for DVT prophylaxis. 8. Monitor respiratory status very closely. 9. I had a long discussion with her regarding smoking cessation. I have advised her to stop smoking forever. Thank you very much for allowing me to participate in care of this very nice lady. JOSELYN SIEGEL M.D. DR: Stan JOB#: [id number] / [id number]
[2016-12-11 15:12] VITALS: BP 110/62
[2016-12-11 19:00] VITALS: BP 96/59
[2016-12-11] MEDS: diphenhydrAMINE HCL 25 MG CAPSULE PO PRN (21:03)
[2016-12-11] MEDS: methylPREDNISolone SOD SUCC PF 40 MG/ML VIAL. IV SCH (21:04)
[2016-12-11 23:00] VITALS: BP 97/58
[2016-12-12] MEDS ORDERED: ALPRAZolam 1 MG TABLET PO ONE (01:30)
[2016-12-12 03:00] VITALS: BP 109/65
[2016-12-12] MEDS: ALBUTEROL SULFATE 2.5 MG/3 ML NEBU. NEB SCH ×5 (04:10→19:47)
[2016-12-12] MEDS: ACETAMINOPHEN 500 MG TABLET PO PRN ×2 (05:35→20:45)
[2016-12-12] MEDS: LEVOTHYROXINE 100 MCG TABLET PO SCH (05:35)
[2016-12-12 07:00] VITALS: BP 94/60
[2016-12-12] MEDS: BUDESONIDE 0.5 MG/2 ML NEBU. NEB SCH ×2 (07:25→19:47)
[2016-12-12] MEDS: PANTOPRAZOLE 40 MG TABLET.DR. PO SCH ×2 (08:43→17:08)
[2016-12-12] MEDS: POTASSIUM CHLORIDE 20 MEQ TABLET.ER. PO SCH ×2 (08:44→20:45)
[2016-12-12] MEDS: ALPRAZolam 1 MG TABLET PO SCH ×3 (08:44→20:45)
[2016-12-12] MEDS: metroNIDAZOLE 500 MG TABLET PO SCH ×3 (08:44→20:45)
[2016-12-12] MEDS: methylPREDNISolone SOD SUCC PF 40 MG/ML VIAL. IV SCH (08:45)
[2016-12-12] MEDS: ENOXAPARIN 40 MG/0.4 ML SYRINGE. SQ SCH (08:46)
--- NOTE | 2016-12-12 08:56 | PDOC ---
PROGRESS NOTES Chief Complaint Chief Complaint Hypoxic respir failure Diarrhea ASSESSMENT AND PLAN: 1. B PNA: on ceftriax, mucolytics, guaif AC. Pulm following; inhaled steroids added 2. COPD exacerbation: cont steroids, nebs, suppl O2 3. Sepsis: recurrent fevers. switch to zosyn; IC consult pending 4. Diarrhea: essentially resolved. no stool specimen for testing. 5. Hypomagnesemia: resolved 6. Hypokalemia: resolved 7. prophyolaxis: lovenox History of Present Illness History of Present Illness continues coughing, less sputum. wants to go home (has bills to pay), but very hypoxic on RA Vitals Vitals Vital Signs Date Time Temp Pulse Resp B/P (MAP) Pulse Ox O2 Delivery O2 Flow Rate FiO2 12/12/16 07:28 89 Aerosol Mask 5.0 12/12/16 03:00 102.0 102 20 109/65 (80) 102.0 Physical Exam General: Alert, Oriented X3, Cooperative, No acute distress Heart: Regular rate Lungs: Crackles Abdomen: Normal bowel sounds, Soft, No tenderness, Other (mild generalized TTP , sl worse in LLQ) Extremities: No edema Skin: No rashes KRISTOFER ALBA MD Dec 12, 2016 08:56
[2016-12-12 09:20] LABS: CALCIUM 6.9 mg/dL (8.5-10.1); CREATININE 0.9 mg/dL (0.6-1.0); GFR 65.2; POTASSIUM 4.4 mmol/L (3.5-5.1)
[2016-12-12 09:34] LABS: BASO # 0.1 x10^3/uL (0.0-0.2); BASO % 1 % (0-3); EOS % 0 % (0-3); HEMOGLOBIN 13.2 g/dL (12.0-15.5); LYMPH # 0.5 x10^3/uL (1.0-4.8); LYMPH % 4 % (24-48); MEAN CORPUSCULAR HEMOGLOBIN 31 pg (25-35); MEAN CORPUSCULAR HGB CONC 34 g/dL (31-37); MEAN CORPUSCULAR VOLUME 93 fL (79-100); MONO % 3 % (0-9); NEUT % 93 % (31-73); PLATELET COUNT 153 x10^3/uL (140-400); RED BLOOD COUNT 4.22 x10^6/uL (3.50-5.40); RED CELL DISTRIBUTION WIDTH 15.2 % (11.5-14.5); WHITE BLOOD COUNT 14.4 x10^3/uL (4.0-11.0)
[2016-12-12] MEDS: DOXYCYCLINE HYCLATE 100 MG in IV DEXTROSE 5% 100 ML IV SCH ×2 (10:11→20:46)
[2016-12-12 11:00] VITALS: BP 93/56
--- NOTE | 2016-12-12 11:50 | PDOC ---
PULMONARY PROGRESS NOTES Subjective has sob, cough, better, no pain, has nasal congestion Vitals Vital Signs Date Time Temp Pulse Resp B/P (MAP) Pulse Ox O2 Delivery O2 Flow Rate FiO2 12/12/16 11:14 Simple Mask 5.0 12/12/16 07:28 89 12/12/16 07:00 97.0 66 18 94/60 (71) 97.0 ROS: No Nausea General: Alert, Oriented X4, No acute distress HEENT: Other (nc at perrrl nose inflamed mucosa, throat clear) Lungs: Crackles Cardiovascular: S1, S2 Abdomen: Soft, Non-tender Neuro Exam: Alert Extremities: No Edema Skin: Warm Labs Laboratory Tests Test 12/11/16 01:00 12/11/16 05:00 12/12/16 05:10 Clostridium difficile Toxin (PCR) Negative (Negative) White Blood Count 15.7 x10^3/uL (4.0-11.0) 14.4 x10^3/uL (4.0-11.0) Red Blood Count 4.25 x10^6/uL (3.50-5.40) 4.22 x10^6/uL (3.50-5.40) Hemoglobin 13.2 g/dL (12.0-15.5) 13.2 g/dL (12.0-15.5) Hematocrit 40.2 % (36.0-47.0) 39.0 % (36.0-47.0) Mean Corpuscular Volume 95 fL (79-100) 93 fL (79-100) Mean Corpuscular Hemoglobin 31 pg (25-35) 31 pg (25-35) Mean Corpuscular Hemoglobin Concent 33 g/dL (31-37) 34 g/dL (31-37) Red Cell Distribution Width 15.0 % (11.5-14.5) 15.2 % (11.5-14.5) Platelet Count 150 x10^3/uL (140-400) 153 x10^3/uL (140-400) Neutrophils (%) (Auto) 92 % (31-73) 93 % (31-73) Lymphocytes (%) (Auto) 6 % (24-48) 4 % (24-48) Monocytes (%) (Auto) 2 % (0-9) 3 % (0-9) Eosinophils (%) (Auto) 0 % (0-3) 0 % (0-3) Basophils (%) (Auto) 0 % (0-3) 1 % (0-3) Neutrophils # (Auto) 14.4 x10^3uL (1.8-7.7) 13.4 x10^3uL (1.8-7.7) Lymphocytes # (Auto) 0.9 x10^3/uL (1.0-4.8) 0.5 x10^3/uL (1.0-4.8) Monocytes # (Auto) 0.4 x10^3/uL (0.0-1.1) 0.4 x10^3/uL (0.0-1.1) Eosinophils # (Auto) 0.0 x10^3/uL (0.0-0.7) 0.0 x10^3/uL (0.0-0.7) Basophils # (Auto) 0.0 x10^3/uL (0.0-0.2) 0.1 x10^3/uL (0.0-0.2) Sodium Level 138 mmol/L (136-145) 139 mmol/L (136-145) Potassium Level 4.1 mmol/L (3.5-5.1) 4.4 mmol/L (3.5-5.1) Chloride Level 104 mmol/L (98-107) 104 mmol/L (98-107) Carbon Dioxide Level 22 mmol/L (21-32) 24 mmol/L (21-32) Anion Gap 12 (6-14) 11 (6-14) Blood Urea Nitrogen 13 mg/dL (7-20) 10 mg/dL (7-20) Creatinine 1.0 mg/dL (0.6-1.0) 0.9 mg/dL (0.6-1.0) Estimated GFR (Cockcroft-Gault) 57.8 65.2 Glucose Level 134 mg/dL (70-99) 144 mg/dL (70-99) Calcium Level 7.4 mg/dL (8.5-10.1) 6.9 mg/dL (8.5-10.1) Magnesium Level 2.3 mg/dL (1.8-2.4) Laboratory Tests Test 7/22/17 05:10 White Blood Count 14.4 x10^3/uL (4.0-11.0) Red Blood Count 4.22 x10^6/uL (3.50-5.40) Hemoglobin 13.2 g/dL (12.0-15.5) Hematocrit 39.0 % (36.0-47.0) Mean Corpuscular Volume 93 fL (79-100) Mean Corpuscular Hemoglobin 31 pg (25-35) Mean Corpuscular Hemoglobin Concent 34 g/dL (31-37) Red Cell Distribution Width 15.2 % (11.5-14.5) Platelet Count 153 x10^3/uL (140-400) Neutrophils (%) (Auto) 93 % (31-73) Lymphocytes (%) (Auto) 4 % (24-48) Monocytes (%) (Auto) 3 % (0-9) Eosinophils (%) (Auto) 0 % (0-3) Basophils (%) (Auto) 1 % (0-3) Neutrophils # (Auto) 13.4 x10^3uL (1.8-7.7) Lymphocytes # (Auto) 0.5 x10^3/uL (1.0-4.8) Monocytes # (Auto) 0.4 x10^3/uL (0.0-1.1) Eosinophils # (Auto) 0.0 x10^3/uL (0.0-0.7) Basophils # (Auto) 0.1 x10^3/uL (0.0-0.2) Sodium Level 139 mmol/L (136-145) Potassium Level 4.4 mmol/L (3.5-5.1) Chloride Level 104 mmol/L (98-107) Carbon Dioxide Level 24 mmol/L (21-32) Anion Gap 11 (6-14) Blood Urea Nitrogen 10 mg/dL (7-20) Creatinine 0.9 mg/dL (0.6-1.0) Estimated GFR (Cockcroft-Gault) 65.2 Glucose Level 144 mg/dL (70-99) Calcium Level 6.9 mg/dL (8.5-10.1) Medications Active Scripts Medications Dose Route/Sig Max Daily Dose Days Date Category Alprazolam 1 Mg Tablet 1 Tab PO TID 12/10/16 Reported Levothyroxine Sodium 100 Mcg Tablet 1 Tab PO DAILY 12/10/16 Reported Ibuprofen 200 Mg Tablet 200 Mg PO PRN Q6HRS PRN 02/24/16 Rx Acetaminophen Pm Caplet (Acetaminophen/Diphenhydramine) 1 Each Tablet 2 Each PO HS 11/11/15 Reported Impression . IMPRESSION: 1. Acute respiratory failure, multifactorial in etiology. 2. Pneumonia. 3. Abnormal chest x-ray. 4. Acute exacerbation of chronic obstructive pulmonary disease. 5. Smoker. 6. Hepatitis C. Plan . PLAN AND RECOMMENDATIONS: 1. Titrate FiO2 to keep O2 saturation 92%. 2. Bronchodilator. 3. inhaled corticosteroid. 4. Continue antibiotic. 5. change solumedrol to prednisone 6. Protonix for stress ulcer prophylaxis. 7. Lovenox for DVT prophylaxis. 8. Monitor respiratory status very closely. 9. I had a long discussion with her regarding smoking cessation. I have advised her to stop smoking forever. discussed w JOSELYN King MD Dec 12, 2016 11:50
[2016-12-12] MEDS: PIPERACILLIN/TAZOBACTAM 3.375 GM in IV NORMAL SALINE 50ML 50 ML IV SCH ×2 (12:51→17:50)
[2016-12-12 15:00] VITALS: BP 90/50
[2016-12-12] MEDS: guaiFENesin/CODEINE 100mg/10mg 5 ML LIQUID PO PRN (18:06)
[2016-12-12] MEDS: HYDROcodone/APAP 5/325MG 1 TAB TABLET PO PRN ×2 (18:07→22:02)
[2016-12-12 19:00] VITALS: BP 98/64
[2016-12-12] MEDS: diphenhydrAMINE HCL 25 MG CAPSULE PO PRN (20:45)
[2016-12-12] MEDS: SUCRALFATE 1 GM TABLET. PO PRN (20:45)
[2016-12-12 22:44] VITALS: BP 102/51
[2016-12-13] VITALS (7 sets, daily range): BP systolic 92–115; BP diastolic 54–75
[2016-12-13] MEDS: ALBUTEROL SULFATE 2.5 MG/3 ML NEBU. NEB SCH ×7 (00:03→23:50)
[2016-12-13] MEDS: guaiFENesin/CODEINE 100mg/10mg 5 ML LIQUID PO PRN ×4 (00:15→22:39)
[2016-12-13] MEDS: PIPERACILLIN/TAZOBACTAM 3.375 GM in IV NORMAL SALINE 50ML 50 ML IV SCH ×5 (00:15→23:45)
[2016-12-13] MEDS: HYDROcodone/APAP 5/325MG 1 TAB TABLET PO PRN ×3 (02:37→12:06)
[2016-12-13] MEDS: LEVOTHYROXINE 100 MCG TABLET PO SCH (06:16)
[2016-12-13 07:20] LABS: BASO % 0 % (0-3); EOS % 0 % (0-3); HEMATOCRIT 38.8 % (36.0-47.0); HEMOGLOBIN 12.7 g/dL (12.0-15.5); LYMPH # 0.7 x10^3/uL (1.0-4.8); LYMPH % 5 % (24-48); MEAN CORPUSCULAR HEMOGLOBIN 31 pg (25-35); MEAN CORPUSCULAR HGB CONC 33 g/dL (31-37); MEAN CORPUSCULAR VOLUME 94 fL (79-100); MONO % 4 % (0-9); NEUT % 92 % (31-73); PLATELET COUNT 155 x10^3/uL (140-400); RED BLOOD COUNT 4.14 x10^6/uL (3.50-5.40); RED CELL DISTRIBUTION WIDTH 15.1 % (11.5-14.5); WHITE BLOOD COUNT 15.3 x10^3/uL (4.0-11.0)
[2016-12-13] MEDS: BUDESONIDE 0.5 MG/2 ML NEBU. NEB SCH ×2 (07:37→21:08)
[2016-12-13] MEDS ORDERED: predniSONE 10 MG TABLET PO SCH (08:00)
[2016-12-13] MEDS: ENOXAPARIN 40 MG/0.4 ML SYRINGE. SQ SCH (09:00)
[2016-12-13] MEDS: metroNIDAZOLE 500 MG TABLET PO SCH (09:53)
[2016-12-13] MEDS: POTASSIUM CHLORIDE 20 MEQ TABLET.ER. PO SCH ×2 (09:54→21:01)
[2016-12-13] MEDS: PANTOPRAZOLE 40 MG TABLET.DR. PO SCH ×2 (09:54→16:52)
[2016-12-13] MEDS: ALPRAZolam 1 MG TABLET PO SCH ×3 (09:54→21:01)
[2016-12-13] MEDS: DOXYCYCLINE HYCLATE 100 MG in IV DEXTROSE 5% 100 ML IV SCH ×2 (09:55→21:01)
[2016-12-13 10:57] LABS: PLT ESTIMATE ADEQUATE (ADEQUATE)
--- NOTE | 2016-12-13 12:38 | PDOC ---
PROGRESS NOTES Chief Complaint Chief Complaint Hypoxic respiratory failure ASSESSMENT AND PLAN: 1. B PNA: on ceftriax, mucolytics, guaif AC. Pulm following; inhaled steroids added 2. COPD exacerbation: cont steroids, nebs, suppl O2 3. Sepsis: recurrent fevers. switch to zosyn; IC consult pending 4. Diarrhea: essentially resolved. no stool specimen for testing. 5. Hypomagnesemia: resolved 6. Hypokalemia: resolved 7. prophyolaxis: lovenox History of Present Illness History of Present Illness continues coughing, acute pain to RLQ, likely muscle strain, hurts when coughing, less sputum. unable to eat due to dyspnea, cough and pleuritic pain Vitals Vitals Vital Signs Date Time Temp Pulse Resp B/P (MAP) Pulse Ox O2 Delivery O2 Flow Rate FiO2 12/13/16 12:23 Nasal Cannula 5.0 12/13/16 10:51 98.1 91 18 110/71 (84) 90 98.1 Physical Exam General: Alert, Oriented X3, Cooperative, No acute distress Heart: Regular rate Lungs: Crackles Abdomen: Normal bowel sounds, Soft, No tenderness, Other (mild generalized TTP , sl worse in LLQ) Extremities: No edema Skin: No rashes Labs LABS Laboratory Tests Test 12/13/16 05:20 White Blood Count 15.3 x10^3/uL (4.0-11.0) Red Blood Count 4.14 x10^6/uL (3.50-5.40) Hemoglobin 12.7 g/dL (12.0-15.5) Hematocrit 38.8 % (36.0-47.0) Mean Corpuscular Volume 94 fL (79-100) Mean Corpuscular Hemoglobin 31 pg (25-35) Mean Corpuscular Hemoglobin Concent 33 g/dL (31-37) Red Cell Distribution Width 15.1 % (11.5-14.5) Platelet Count 155 x10^3/uL (140-400) Neutrophils (%) (Auto) 92 % (31-73) Lymphocytes (%) (Auto) 5 % (24-48) Monocytes (%) (Auto) 4 % (0-9) Eosinophils (%) (Auto) 0 % (0-3) Basophils (%) (Auto) 0 % (0-3) Neutrophils # (Auto) 14.0 x10^3uL (1.8-7.7) Lymphocytes # (Auto) 0.7 x10^3/uL (1.0-4.8) Monocytes # (Auto) 0.5 x10^3/uL (0.0-1.1) Eosinophils # (Auto) 0.0 x10^3/uL (0.0-0.7) Basophils # (Auto) 0.0 x10^3/uL (0.0-0.2) Segmented Neutrophils % 61 % (35-66) Band Neutrophils % 31 % (0-9) Lymphocytes % 5 % (24-48) Monocytes % 3 % (0-10) Platelet Estimate Adequate (ADEQUATE) Review of Systems Review of Systems cough, dyspnea, weakness poor po intake Assessment and Plan Assessmemt and Plan Problems Medical Problems: (1) Pneumonia Status: Acute Problems: Comment Review of Relevant I have reviewed the following items vasquez (where applicable) has been applied. Labs Laboratory Tests Test 12/12/16 05:10 12/13/16 05:20 White Blood Count 14.4 x10^3/uL (4.0-11.0) 15.3 x10^3/uL (4.0-11.0) Red Blood Count 4.22 x10^6/uL (3.50-5.40) 4.14 x10^6/uL (3.50-5.40) Hemoglobin 13.2 g/dL (12.0-15.5) 12.7 g/dL (12.0-15.5) Hematocrit 39.0 % (36.0-47.0) 38.8 % (36.0-47.0) Mean Corpuscular Volume 93 fL (79-100) 94 fL (79-100) Mean Corpuscular Hemoglobin 31 pg (25-35) 31 pg (25-35) Mean Corpuscular Hemoglobin Concent 34 g/dL (31-37) 33 g/dL (31-37) Red Cell Distribution Width 15.2 % (11.5-14.5) 15.1 % (11.5-14.5) Platelet Count 153 x10^3/uL (140-400) 155 x10^3/uL (140-400) Neutrophils (%) (Auto) 93 % (31-73) 92 % (31-73) Lymphocytes (%) (Auto) 4 % (24-48) 5 % (24-48) Monocytes (%) (Auto) 3 % (0-9) 4 % (0-9) Eosinophils (%) (Auto) 0 % (0-3) 0 % (0-3) Basophils (%) (Auto) 1 % (0-3) 0 % (0-3) Neutrophils # (Auto) 13.4 x10^3uL (1.8-7.7) 14.0 x10^3uL (1.8-7.7) Lymphocytes # (Auto) 0.5 x10^3/uL (1.0-4.8) 0.7 x10^3/uL (1.0-4.8) Monocytes # (Auto) 0.4 x10^3/uL (0.0-1.1) 0.5 x10^3/uL (0.0-1.1) Eosinophils # (Auto) 0.0 x10^3/uL (0.0-0.7) 0.0 x10^3/uL (0.0-0.7) Basophils # (Auto) 0.1 x10^3/uL (0.0-0.2) 0.0 x10^3/uL (0.0-0.2) Sodium Level 139 mmol/L (136-145) Potassium Level 4.4 mmol/L (3.5-5.1) Chloride Level 104 mmol/L (98-107) Carbon Dioxide Level 24 mmol/L (21-32) Anion Gap 11 (6-14) Blood Urea Nitrogen 10 mg/dL (7-20) Creatinine 0.9 mg/dL (0.6-1.0) Estimated GFR (Cockcroft-Gault) 65.2 Glucose Level 144 mg/dL (70-99) Calcium Level 6.9 mg/dL (8.5-10.1) Segmented Neutrophils % 61 % (35-66) Band Neutrophils % 31 % (0-9) Lymphocytes % 5 % (24-48) Monocytes % 3 % (0-10) Platelet Estimate Adequate (ADEQUATE) Laboratory Tests Test 12/13/16 05:20 White Blood Count 15.3 x10^3/uL (4.0-11.0) Red Blood Count 4.14 x10^6/uL (3.50-5.40) Hemoglobin 12.7 g/dL (12.0-15.5) Hematocrit 38.8 % (36.0-47.0) Mean Corpuscular Volume 94 fL (79-100) Mean Corpuscular Hemoglobin 31 pg (25-35) Mean Corpuscular Hemoglobin Concent 33 g/dL (31-37) Red Cell Distribution Width 15.1 % (11.5-14.5) Platelet Count 155 x10^3/uL (140-400) Neutrophils (%) (Auto) 92 % (31-73) Lymphocytes (%) (Auto) 5 % (24-48) Monocytes (%) (Auto) 4 % (0-9) Eosinophils (%) (Auto) 0 % (0-3) Basophils (%) (Auto) 0 % (0-3) Neutrophils # (Auto) 14.0 x10^3uL (1.8-7.7) Lymphocytes # (Auto) 0.7 x10^3/uL (1.0-4.8) Monocytes # (Auto) 0.5 x10^3/uL (0.0-1.1) Eosinophils # (Auto) 0.0 x10^3/uL (0.0-0.7) Basophils # (Auto) 0.0 x10^3/uL (0.0-0.2) Segmented Neutrophils % 61 % (35-66) Band Neutrophils % 31 % (0-9) Lymphocytes % 5 % (24-48) Monocytes % 3 % (0-10) Platelet Estimate Adequate (ADEQUATE) Microbiology 12/12/16 Blood Culture - Preliminary, Resulted NO GROWTH AFTER 1 DAY Medications Current Medications Methylprednisolone Sodium Succinate (SOLU-Medrol 125MG VIAL) 125 mg 1X ONCE IV Last administered on 12/10/16 08:46; Start 12/10/16 at 09:00; Stop 12/10/16 at 09:01; Status DC Albuterol/ Ipratropium (Duoneb) 3 ml 1X ONCE NEB Last administered on 08:38; Start 12/10/16 at 09:00; Stop 12/10/16 at 09:01; Status DC Ibuprofen (Motrin) 600 mg 1X ONCE PO Last administered on 12/10/16 08:48; Start 12/10/16 at 09:00; Stop 12/10/16 at 09:01; Status DC Sodium Chloride 1,000 ml @ 1,000 mls/hr 1X ONCE IV Last administered on 08:44; Start 12/10/16 at 09:00; Stop 12/10/16 at 09:59; Status DC Ceftriaxone Sodium 50 ml @ 100 mls/hr 1X ONCE IV Last administered on 11:19; Start 12/10/16 at 09:30; Stop 12/10/16 at 09:59; Status DC Doxycycline Hyclate 100 mg/ Dextrose 100 ml @ 50 mls/hr BID IV Last administered on 12/13/16 09:55; Start 12/10/16 at 10:00 Ceftriaxone Sodium 1 gm/ Sodium Chloride 50 ml @ 100 mls/hr Q24H IV Last administered on 12/12/16 08:46; Start 12/11/16 at 09:00; Stop 12/12/16 at 11:05 ; Status DC Sodium Chloride 1,000 ml @ 75 mls/hr [id number] IV Last administered on 03:47; Start 12/10/16 at 10:00; Stop 12/11/16 at 09:59; Status DC Albuterol Sulfate (Ventolin Neb Soln) 2.5 mg Q4HRS NEB Last administered on 12:21; Start 12/10/16 at 12:00 Albuterol/ Ipratropium (Duoneb) 3 ml PRN Q6HRS PRN NEB SOA; Start 12/10/16 at 09:30 Methylprednisolone Sodium Succinate (SOLU-Medrol 125MG VIAL) 125 mg BID IV Last administered on 12/10/16 20:27; Start 12/10/16 at 21:00; Stop 12/10/16 at 23:00; Status DC Loperamide HCl (Imodium) 4 mg PRN Q15MIN PRN PO DIARRHEA Last administered on 21:39; Start 12/10/16 at 14:00 Loperamide HCl (Imodium) 4 mg PRN Q15MIN PRN PO DIARRHEA; Start 12/10/16 at 14: 00; Status UNV Prednisone (Prednisone) 40 mg DAILY PO Last administered on 12/11/16 08:43; Start 12/11/16 at 09:00; Stop 12/11/16 at 13:17; Status DC Potassium Chloride (Klor-Con) 20 meq BID PO Last administered on 12/13/16 09: 54; Start 12/10/16 at 14:00 Guaifenesin (Mucinex) 600 mg BID PO Last administered on 12/13/16 09:53; Start 12/10/16 at 14:00 Guaifenesin/ Codeine Phosphate (Robitussin Ac) 5 ml PRN Q6HRS PRN PO COUGH Last administered on 12/13/16 12:06; Start 12/10/16 at 14:00 Alprazolam (Xanax) 1 mg TID PO ; Start 12/10/16 at 21:00; Stop 12/10/16 at 21:00 ; Status DC Levothyroxine Sodium (Synthroid) 100 mcg DAILY07 PO ; Start 12/11/16 at 07:00; Stop 12/11/16 at 07:00; Status DC Acetaminophen (Tylenol) 1,000 mg PRN QHS PRN PO MILD PAIN / INSOMNIA Last administered on 12/12/16 20:45; Start 12/10/16 at 15:15 Diphenhydramine HCl (Benadryl) 50 mg PRN QHS PRN PO MILD PAIN / INSOMNIA Last administered on 12/12/16 20:45; Start 12/10/16 at 15:15 Levothyroxine Sodium (Synthroid) 100 mcg DAILY07 PO Last administered on 06:16; Start 12/10/16 at 16:15 Alprazolam (Xanax) 1 mg TID PO Last administered on 12/13/16 09:54; Start at 16:30 Magnesium Sulfate/ Dextrose 50 ml @ 25 mls/hr 1X ONCE IV Last administered on 12/10/16 19:03; Start 12/10/16 at 19:00; Stop 12/10/16 at 20:59; Status DC Enoxaparin Sodium (Lovenox 40mg Syringe) 40 mg Q24H SQ ; Start 12/11/16 at 09:00 Metronidazole (Flagyl) 500 mg TID PO Last administered on 12/13/16 09:53; Start 12/10/16 at 22:00 Ondansetron HCl (Zofran) 4 mg PRN Q6HRS PRN IV NAUSEA/VOMITING Last administered on 12/10/16 23:05; Start 12/10/16 at 22:30; Stop 12/11/16 at 01:47 ; Status DC Ondansetron HCl (Zofran) 8 mg PRN Q6HRS PRN IV NAUSEA/VOMITING, 1ST CHOICE; Start 12/11/16 at 01:45 Ondansetron HCl (Zofran) 8 mg 1X ONCE IV Last administered on 12/11/16 01:50 ; Start 12/11/16 at 02:00; Stop 12/11/16 at 02:01; Status DC Prochlorperazine Edisylate (Compazine) 10 mg PRN Q8HRS PRN IV NAUSEA/VOMITING, 2ND CHOICE; Start 12/11/16 at 01:45 Sodium Chloride 1,000 ml @ 1,000 mls/hr 1X ONCE IV Last administered on 12:30; Start 12/11/16 at 12:00; Stop 12/11/16 at 12:59; Status DC Pantoprazole Sodium (Protonix) 40 mg BIDAC PO Last administered on 12/13/16 09 :54; Start 12/11/16 at 12:00 Sucralfate (Carafate) 1 gm QIDACHS PRN PO reflux Last administered on 20:45; Start 12/11/16 at 12:00 Calcium Carbonate/ Glycine (Tums) 500 mg PRN AFTMEALHC PRN PO INDIGESTION; Start 12/11/16 at 12:00 Methylprednisolone Sodium Succinate (SOLU-Medrol 40MG VIAL) 40 mg Q12HR IV ; Start 12/11/16 at 13:30; Status Cancel Budesonide (Pulmicort) 0.5 mg RTBID NEB Last administered on 12/13/16 07:37; Start 12/11/16 at 13:30 Methylprednisolone Sodium Succinate (SOLU-Medrol 40MG VIAL) 40 mg Q12HR IV Last administered on 12/12/16 08:45; Start 12/11/16 at 21:00; Stop 12/12/16 at 11:52; Status DC Nicotine (Nicoderm Cq 14mg) 1 patch PRN DAILY PRN TD SMOKING CESSATION; Start 12/11/16 at 13:45 Alprazolam (Xanax) 1 mg 1X ONCE PO Last administered on 12/12/16 01:22; Start 12/12/16 at 01:30; Stop 12/12/16 at 01:31; Status DC Piperacillin Sod/ Tazobactam Sod 3.375 gm/Sodium Chloride 50 ml @ 100 mls/hr Q6HRS IV Last administered on 12/13/16 06:16; Start 12/12/16 at 12:00 Prednisone (Prednisone) 40 mg DAILY08 PO Last administered on 12/13/16 09:53; Start 12/13/16 at 08:00 Acetaminophen/ Hydrocodone Bitart (Lortab 5/325) 1 tab PRN Q4HRS PRN PO PAIN Last administered on 12/13/16 12:06; Start 12/12/16 at 18:00 Active Scripts Active Ibuprofen 200 Mg Tablet 200 Mg PO PRN Q6HRS PRN Reported Alprazolam 1 Mg Tablet 1 Tab PO TID Levothyroxine Sodium 100 Mcg Tablet 1 Tab PO DAILY Acetaminophen Pm Caplet (Acetaminophen/Diphenhydramine) 1 Each Tablet 2 Each PO HS Vitals/I & O Vital Sign - Last 24 Hours 12/12/16 12/12/16 12/12/16 12/12/16 15:00 16:33 18:07 19:00 Temp 98.0 97.7 98.0 97.7 Pulse 89 93 Resp 18 B/P (MAP) 90/50 (63) 98/64 (75) Pulse Ox 96 94 O2 Delivery Venturi Mask Nasal Cannula Nasal Cannula Nasal Cannula O2 Flow Rate 5.0 5.0 5.0 5.0 12/12/16 12/12/16 12/12/16 12/12/16 19:07 19:47 20:00 22:02 Resp 20 Pulse Ox 91 91 O2 Delivery Nasal Cannula Nasal Cannula Nasal Cannula O2 Flow Rate 5.0 5.0 5.0 12/12/16 12/12/16 12/13/16 12/13/16 22:44 23:02 00:05 02:37 Pulse 92 Resp 19 22 22 B/P (MAP) 102/51 (68) Pulse Ox 91 89 O2 Delivery Nasal Cannula Nasal Cannula Room Air Nasal Cannula O2 Flow Rate 5.0 12/13/16 12/13/16 12/13/16 12/13/16 02:43 04:10 06:16 07:00 Temp 97.9 98.1 97.9 98.1 Pulse 83 83 Resp 18 20 18 B/P (MAP) 92/65 (74) 97/64 (75) Pulse Ox 96 91 90 O2 Delivery Nasal Cannula Room Air Nasal Cannula Nasal Cannula O2 Flow Rate 5.0 5.0 12/13/16 12/13/16 12/13/16 07:40 10:51 12:23 Temp 98.1 98.1 Pulse 91 Resp 18 B/P (MAP) 110/71 (84) Pulse Ox 91 90 O2 Delivery Nasal Cannula Nasal Cannula Nasal Cannula O2 Flow Rate 5.0 5.0 5.0 Intake and Output 12/12/16 12/12/16 12/13/16 15:00 23:00 07:00 Intake Total 690 ml 700 ml 50 ml Balance 690 ml 700 ml 50 ml JACQUES BURK MD Dec 13, 2016 12:38
[2016-12-13] MEDS ORDERED: methylPREDNISolone SOD SUCC PF 125 MG/2 ML VIAL. IV ONE (12:45)
--- NOTE | 2016-12-13 12:52 | PDOC ---
PULMONARY PROGRESS NOTES Subjective has sob, has more cough, no sputum, has chest wall pain, has nasal congestion Vitals Vital Signs Date Time Temp Pulse Resp B/P (MAP) Pulse Ox O2 Delivery O2 Flow Rate FiO2 12/13/16 12:23 Nasal Cannula 5.0 12/13/16 10:51 98.1 91 18 110/71 (84) 90 98.1 Comments ros as mentioned as above other sys otherwise neg ROS: No Nausea General: Alert, Oriented X4, No acute distress HEENT: Other (nc at perrl, nose throat clear, neck...no lap, thyromegaly) Lungs: Wheezing, Other (deminished) Cardiovascular: S1, S2 Abdomen: Soft, Non-tender, Other (no mass) Neuro Exam: Alert Extremities: No Edema Skin: Warm Labs Laboratory Tests Test 12/12/16 05:10 12/13/16 05:20 White Blood Count 14.4 x10^3/uL (4.0-11.0) 15.3 x10^3/uL (4.0-11.0) Red Blood Count 4.22 x10^6/uL (3.50-5.40) 4.14 x10^6/uL (3.50-5.40) Hemoglobin 13.2 g/dL (12.0-15.5) 12.7 g/dL (12.0-15.5) Hematocrit 39.0 % (36.0-47.0) 38.8 % (36.0-47.0) Mean Corpuscular Volume 93 fL (79-100) 94 fL (79-100) Mean Corpuscular Hemoglobin 31 pg (25-35) 31 pg (25-35) Mean Corpuscular Hemoglobin Concent 34 g/dL (31-37) 33 g/dL (31-37) Red Cell Distribution Width 15.2 % (11.5-14.5) 15.1 % (11.5-14.5) Platelet Count 153 x10^3/uL (140-400) 155 x10^3/uL (140-400) Neutrophils (%) (Auto) 93 % (31-73) 92 % (31-73) Lymphocytes (%) (Auto) 4 % (24-48) 5 % (24-48) Monocytes (%) (Auto) 3 % (0-9) 4 % (0-9) Eosinophils (%) (Auto) 0 % (0-3) 0 % (0-3) Basophils (%) (Auto) 1 % (0-3) 0 % (0-3) Neutrophils # (Auto) 13.4 x10^3uL (1.8-7.7) 14.0 x10^3uL (1.8-7.7) Lymphocytes # (Auto) 0.5 x10^3/uL (1.0-4.8) 0.7 x10^3/uL (1.0-4.8) Monocytes # (Auto) 0.4 x10^3/uL (0.0-1.1) 0.5 x10^3/uL (0.0-1.1) Eosinophils # (Auto) 0.0 x10^3/uL (0.0-0.7) 0.0 x10^3/uL (0.0-0.7) Basophils # (Auto) 0.1 x10^3/uL (0.0-0.2) 0.0 x10^3/uL (0.0-0.2) Sodium Level 139 mmol/L (136-145) Potassium Level 4.4 mmol/L (3.5-5.1) Chloride Level 104 mmol/L (98-107) Carbon Dioxide Level 24 mmol/L (21-32) Anion Gap 11 (6-14) Blood Urea Nitrogen 10 mg/dL (7-20) Creatinine 0.9 mg/dL (0.6-1.0) Estimated GFR (Cockcroft-Gault) 65.2 Glucose Level 144 mg/dL (70-99) Calcium Level 6.9 mg/dL (8.5-10.1) Segmented Neutrophils % 61 % (35-66) Band Neutrophils % 31 % (0-9) Lymphocytes % 5 % (24-48) Monocytes % 3 % (0-10) Platelet Estimate Adequate (ADEQUATE) Laboratory Tests Test 12/13/16 05:20 White Blood Count 15.3 x10^3/uL (4.0-11.0) Red Blood Count 4.14 x10^6/uL (3.50-5.40) Hemoglobin 12.7 g/dL (12.0-15.5) Hematocrit 38.8 % (36.0-47.0) Mean Corpuscular Volume 94 fL (79-100) Mean Corpuscular Hemoglobin 31 pg (25-35) Mean Corpuscular Hemoglobin Concent 33 g/dL (31-37) Red Cell Distribution Width 15.1 % (11.5-14.5) Platelet Count 155 x10^3/uL (140-400) Neutrophils (%) (Auto) 92 % (31-73) Lymphocytes (%) (Auto) 5 % (24-48) Monocytes (%) (Auto) 4 % (0-9) Eosinophils (%) (Auto) 0 % (0-3) Basophils (%) (Auto) 0 % (0-3) Neutrophils # (Auto) 14.0 x10^3uL (1.8-7.7) Lymphocytes # (Auto) 0.7 x10^3/uL (1.0-4.8) Monocytes # (Auto) 0.5 x10^3/uL (0.0-1.1) Eosinophils # (Auto) 0.0 x10^3/uL (0.0-0.7) Basophils # (Auto) 0.0 x10^3/uL (0.0-0.2) Segmented Neutrophils % 61 % (35-66) Band Neutrophils % 31 % (0-9) Lymphocytes % 5 % (24-48) Monocytes % 3 % (0-10) Platelet Estimate Adequate (ADEQUATE) Medications Active Scripts Medications Dose Route/Sig Max Daily Dose Days Date Category Alprazolam 1 Mg Tablet 1 Tab PO TID 12/10/16 Reported Levothyroxine Sodium 100 Mcg Tablet 1 Tab PO DAILY 12/10/16 Reported Ibuprofen 200 Mg Tablet 200 Mg PO PRN Q6HRS PRN 02/24/16 Rx Acetaminophen Pm Caplet (Acetaminophen/Diphenhydramine) 1 Each Tablet 2 Each PO HS 11/11/15 Reported Impression . IMPRESSION: 1. Acute respiratory failure, multifactorial in etiology. 2. Pneumonia. 3. Abnormal chest x-ray. 4. Acute exacerbation of chronic obstructive pulmonary disease. 5. Smoker. 6. Hepatitis C. 7. allergic rhinitis Plan . PLAN AND RECOMMENDATIONS: 1. Titrate FiO2 to keep O2 saturation 92%. 2. Bronchodilator. 3. inhaled corticosteroid. 4. Continue antibiotic. 5. has more cough, wheezing, will change prednisone to solumedrol 6. Protonix for stress ulcer prophylaxis. 7. Lovenox for DVT prophylaxis. 8. Monitor respiratory status very closely. 9. I had a long discussion with her regarding smoking cessation. I have advised her to stop smoking forever. 10. galilea jackson discussed w pt, JOSELYN Valiente MD Dec 13, 2016 12:51
[2016-12-13] MEDS: methylPREDNISolone SOD SUCC PF 40 MG/ML VIAL. IV SCH ×2 (13:29→21:05)
[2016-12-13] MEDS: BENZONATATE 100 MG CAPSULE. PO SCH ×2 (13:29→21:01)
[2016-12-13] MEDS: LIDOCAINE (700MG/PATCH) PATCH. TD SCH (13:29)
[2016-12-13] MEDS ORDERED: ALBUTEROL SULFATE 2.5 MG/3 ML NEBU. NEB PRN (16:15)
[2016-12-13] MEDS: HYDROcodone/APAP 7.5/325MG 1 TAB TABLET PO PRN ×2 (16:52→21:04)
[2016-12-13] MEDS ORDERED: predniSONE 20 MG TABLET PO SCH (17:00)
[2016-12-13] MEDS: MONTELUKAST SODIUM 10 MG TABLET. PO SCH (21:01)
[2016-12-13] MEDS: diphenhydrAMINE HCL 25 MG CAPSULE PO PRN (22:40)
[2016-12-14] MEDS: HYDROcodone/APAP 7.5/325MG 1 TAB TABLET PO PRN ×4 (02:44→20:50)
[2016-12-14 03:00] VITALS: BP 115/54
[2016-12-14] MEDS: ALBUTEROL SULFATE 2.5 MG/3 ML NEBU. NEB SCH ×5 (04:14→20:24)
[2016-12-14 04:56] LABS: BASO % 0 % (0-3); EOS % 0 % (0-3); HEMOGLOBIN 12.6 g/dL (12.0-15.5); LYMPH # 0.5 x10^3/uL (1.0-4.8); LYMPH % 4 % (24-48); MEAN CORPUSCULAR HEMOGLOBIN 31 pg (25-35); MEAN CORPUSCULAR HGB CONC 33 g/dL (31-37); MEAN CORPUSCULAR VOLUME 94 fL (79-100); MONO % 5 % (0-9); NEUT % 92 % (31-73); PLATELET COUNT 186 x10^3/uL (140-400); RED BLOOD COUNT 4.06 x10^6/uL (3.50-5.40); RED CELL DISTRIBUTION WIDTH 15.1 % (11.5-14.5); WHITE BLOOD COUNT 13.6 x10^3/uL (4.0-11.0)
[2016-12-14] MEDS: ACETAMINOPHEN 500 MG TABLET PO PRN (05:48)
[2016-12-14] MEDS: guaiFENesin/CODEINE 100mg/10mg 5 ML LIQUID PO PRN (05:48)
[2016-12-14] MEDS: PANTOPRAZOLE 40 MG TABLET.DR. PO SCH ×2 (05:49→08:47)
[2016-12-14] MEDS: LEVOTHYROXINE 100 MCG TABLET PO SCH (05:49)
[2016-12-14] MEDS: PIPERACILLIN/TAZOBACTAM 3.375 GM in IV NORMAL SALINE 50ML 50 ML IV SCH ×3 (05:50→17:50)
[2016-12-14] MEDS: methylPREDNISolone SOD SUCC PF 40 MG/ML VIAL. IV SCH ×3 (05:50→20:47)
[2016-12-14 07:00] VITALS: BP 101/69
[2016-12-14] MEDS: BUDESONIDE 0.5 MG/2 ML NEBU. NEB SCH ×2 (07:39→20:24)
[2016-12-14] MEDS: BENZONATATE 100 MG CAPSULE. PO SCH ×3 (08:47→20:46)
[2016-12-14] MEDS: ALPRAZolam 1 MG TABLET PO SCH ×3 (08:47→20:47)
[2016-12-14] MEDS: LACTOBACILLUS ACIDOPH & BULGAR 1 TABLET. PO SCH (08:47)
[2016-12-14] MEDS: LIDOCAINE (700MG/PATCH) PATCH. TD SCH (08:47)
[2016-12-14] MEDS: POTASSIUM CHLORIDE 20 MEQ TABLET.ER. PO SCH ×2 (08:48→20:47)
[2016-12-14] MEDS: DOXYCYCLINE HYCLATE 100 MG in IV DEXTROSE 5% 100 ML IV SCH ×2 (08:48→20:47)
--- NOTE | 2016-12-14 09:52 | PDOC ---
PROGRESS NOTES Chief Complaint Chief Complaint Hypoxic respiratory failure ASSESSMENT AND PLAN: 1. B PNA: on ceftriax, mucolytics, guaif AC. Pulm following; inhaled steroids, had IV solumedrol again 12/13 2. COPD exacerbation: cont steroids, nebs, suppl O2 3. Sepsis: recurrent fevers. switch to zosyn; IC consult pending 4. Diarrhea: essentially resolved. no stool specimen for testing. 5. Hypomagnesemia: resolved 6. Hypokalemia: resolved 7. 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, poor PO intake, getting the boost BID, and has eaten them on 4-5 liters 02 Vitals Vitals Vital Signs Date Time Temp Pulse Resp B/P (MAP) Pulse Ox O2 Delivery O2 Flow Rate FiO2 12/14/16 07:40 92 Nasal Cannula 6.0 12/14/16 07:00 97.9 76 18 101/69 (80) 97.9 Physical Exam General: Alert, Oriented X3, Cooperative, No acute distress Heart: Regular rate Lungs: Wheezing, Other (deminished) Abdomen: Normal bowel sounds, Soft, No tenderness, Other (mild generalized TTP , sl worse in LLQ) Extremities: No edema Skin: No rashes Labs LABS Laboratory Tests Test 12/14/16 03:54 White Blood Count 13.6 x10^3/uL (4.0-11.0) Red Blood Count 4.06 x10^6/uL (3.50-5.40) Hemoglobin 12.6 g/dL (12.0-15.5) Hematocrit 38.0 % (36.0-47.0) Mean Corpuscular Volume 94 fL (79-100) Mean Corpuscular Hemoglobin 31 pg (25-35) Mean Corpuscular Hemoglobin Concent 33 g/dL (31-37) Red Cell Distribution Width 15.1 % (11.5-14.5) Platelet Count 186 x10^3/uL (140-400) Neutrophils (%) (Auto) 92 % (31-73) Lymphocytes (%) (Auto) 4 % (24-48) Monocytes (%) (Auto) 5 % (0-9) Eosinophils (%) (Auto) 0 % (0-3) Basophils (%) (Auto) 0 % (0-3) Neutrophils # (Auto) 12.4 x10^3uL (1.8-7.7) Lymphocytes # (Auto) 0.5 x10^3/uL (1.0-4.8) Monocytes # (Auto) 0.6 x10^3/uL (0.0-1.1) Eosinophils # (Auto) 0.0 x10^3/uL (0.0-0.7) Basophils # (Auto) 0.0 x10^3/uL (0.0-0.2) Review of Systems Review of Systems cough wheeze, dyspnea she asked when she could go home, or if go home today, still very ill, large hypoxia, 02 need Assessment and Plan Assessmemt and Plan Problems Medical Problems: (1) Pneumonia Status: Acute Problems: Comment Review of Relevant I have reviewed the following items vasquez (where applicable) has been applied. Labs Laboratory Tests Test 12/13/16 05:20 12/14/16 03:54 White Blood Count 15.3 x10^3/uL (4.0-11.0) 13.6 x10^3/uL (4.0-11.0) Red Blood Count 4.14 x10^6/uL (3.50-5.40) 4.06 x10^6/uL (3.50-5.40) Hemoglobin 12.7 g/dL (12.0-15.5) 12.6 g/dL (12.0-15.5) Hematocrit 38.8 % (36.0-47.0) 38.0 % (36.0-47.0) Mean Corpuscular Volume 94 fL (79-100) 94 fL (79-100) Mean Corpuscular Hemoglobin 31 pg (25-35) 31 pg (25-35) Mean Corpuscular Hemoglobin Concent 33 g/dL (31-37) 33 g/dL (31-37) Red Cell Distribution Width 15.1 % (11.5-14.5) 15.1 % (11.5-14.5) Platelet Count 155 x10^3/uL (140-400) 186 x10^3/uL (140-400) Neutrophils (%) (Auto) 92 % (31-73) 92 % (31-73) Lymphocytes (%) (Auto) 5 % (24-48) 4 % (24-48) Monocytes (%) (Auto) 4 % (0-9) 5 % (0-9) Eosinophils (%) (Auto) 0 % (0-3) 0 % (0-3) Basophils (%) (Auto) 0 % (0-3) 0 % (0-3) Neutrophils # (Auto) 14.0 x10^3uL (1.8-7.7) 12.4 x10^3uL (1.8-7.7) Lymphocytes # (Auto) 0.7 x10^3/uL (1.0-4.8) 0.5 x10^3/uL (1.0-4.8) Monocytes # (Auto) 0.5 x10^3/uL (0.0-1.1) 0.6 x10^3/uL (0.0-1.1) Eosinophils # (Auto) 0.0 x10^3/uL (0.0-0.7) 0.0 x10^3/uL (0.0-0.7) Basophils # (Auto) 0.0 x10^3/uL (0.0-0.2) 0.0 x10^3/uL (0.0-0.2) Segmented Neutrophils % 61 % (35-66) Band Neutrophils % 31 % (0-9) Lymphocytes % 5 % (24-48) Monocytes % 3 % (0-10) Platelet Estimate Adequate (ADEQUATE) Laboratory Tests Test 12/14/16 03:54 White Blood Count 13.6 x10^3/uL (4.0-11.0) Red Blood Count 4.06 x10^6/uL (3.50-5.40) Hemoglobin 12.6 g/dL (12.0-15.5) Hematocrit 38.0 % (36.0-47.0) Mean Corpuscular Volume 94 fL (79-100) Mean Corpuscular Hemoglobin 31 pg (25-35) Mean Corpuscular Hemoglobin Concent 33 g/dL (31-37) Red Cell Distribution Width 15.1 % (11.5-14.5) Platelet Count 186 x10^3/uL (140-400) Neutrophils (%) (Auto) 92 % (31-73) Lymphocytes (%) (Auto) 4 % (24-48) Monocytes (%) (Auto) 5 % (0-9) Eosinophils (%) (Auto) 0 % (0-3) Basophils (%) (Auto) 0 % (0-3) Neutrophils # (Auto) 12.4 x10^3uL (1.8-7.7) Lymphocytes # (Auto) 0.5 x10^3/uL (1.0-4.8) Monocytes # (Auto) 0.6 x10^3/uL (0.0-1.1) Eosinophils # (Auto) 0.0 x10^3/uL (0.0-0.7) Basophils # (Auto) 0.0 x10^3/uL (0.0-0.2) Microbiology 12/12/16 Blood Culture - Preliminary, Resulted NO GROWTH AFTER 2 DAYS Medications Current Medications Methylprednisolone Sodium Succinate (SOLU-Medrol 125MG VIAL) 125 mg 1X ONCE IV Last administered on 12/10/16 08:46; Start 12/10/16 at 09:00; Stop 12/10/16 at 09:01; Status DC Albuterol/ Ipratropium (Duoneb) 3 ml 1X ONCE NEB Last administered on 08:38; Start 12/10/16 at 09:00; Stop 12/10/16 at 09:01; Status DC Ibuprofen (Motrin) 600 mg 1X ONCE PO Last administered on 12/10/16 08:48; Start 12/10/16 at 09:00; Stop 12/10/16 at 09:01; Status DC Sodium Chloride 1,000 ml @ 1,000 mls/hr 1X ONCE IV Last administered on 08:44; Start 12/10/16 at 09:00; Stop 12/10/16 at 09:59; Status DC Ceftriaxone Sodium 50 ml @ 100 mls/hr 1X ONCE IV Last administered on 11:19; Start 12/10/16 at 09:30; Stop 12/10/16 at 09:59; Status DC Doxycycline Hyclate 100 mg/ Dextrose 100 ml @ 50 mls/hr BID IV Last administered on 12/14/16 08:48; Start 12/10/16 at 10:00 Ceftriaxone Sodium 1 gm/ Sodium Chloride 50 ml @ 100 mls/hr Q24H IV Last administered on 12/12/16 08:46; Start 12/11/16 at 09:00; Stop 12/12/16 at 11:05 ; Status DC Sodium Chloride 1,000 ml @ 75 mls/hr [id number] IV Last administered on 03:47; Start 12/10/16 at 10:00; Stop 12/11/16 at 09:59; Status DC Albuterol Sulfate (Ventolin Neb Soln) 2.5 mg Q4HRS NEB Last administered on 07:39; Start 12/10/16 at 12:00 Albuterol/ Ipratropium (Duoneb) 3 ml PRN Q6HRS PRN NEB SOA; Start 12/10/16 at 09:30; Stop 12/13/16 at 16:13; Status DC Methylprednisolone Sodium Succinate (SOLU-Medrol 125MG VIAL) 125 mg BID IV Last administered on 12/10/16 20:27; Start 12/10/16 at 21:00; Stop 12/10/16 at 23:00; Status DC Loperamide HCl (Imodium) 4 mg PRN Q15MIN PRN PO DIARRHEA Last administered on 21:39; Start 12/10/16 at 14:00 Loperamide HCl (Imodium) 4 mg PRN Q15MIN PRN PO DIARRHEA; Start 12/10/16 at 14: 00; Status UNV Prednisone (Prednisone) 40 mg DAILY PO Last administered on 12/11/16 08:43; Start 12/11/16 at 09:00; Stop 12/11/16 at 13:17; Status DC Potassium Chloride (Klor-Con) 20 meq BID PO Last administered on 12/14/16 08: 48; Start 12/10/16 at 14:00 Guaifenesin (Mucinex) 600 mg BID PO Last administered on 12/14/16 08:47; Start 12/10/16 at 14:00 Guaifenesin/ Codeine Phosphate (Robitussin Ac) 5 ml PRN Q6HRS PRN PO COUGH Last administered on 12/14/16 05:48; Start 12/10/16 at 14:00 Alprazolam (Xanax) 1 mg TID PO ; Start 12/10/16 at 21:00; Stop 12/10/16 at 21:00 ; Status DC Levothyroxine Sodium (Synthroid) 100 mcg DAILY07 PO ; Start 12/11/16 at 07:00; Stop 12/11/16 at 07:00; Status DC Acetaminophen (Tylenol) 1,000 mg PRN QHS PRN PO MILD PAIN / INSOMNIA Last administered on 12/14/16 05:48; Start 12/10/16 at 15:15 Diphenhydramine HCl (Benadryl) 50 mg PRN QHS PRN PO MILD PAIN / INSOMNIA Last administered on 12/13/16 22:40; Start 12/10/16 at 15:15 Levothyroxine Sodium (Synthroid) 100 mcg DAILY07 PO Last administered on 05:49; Start 12/10/16 at 16:15 Alprazolam (Xanax) 1 mg TID PO Last administered on 12/14/16 08:47; Start at 16:30 Magnesium Sulfate/ Dextrose 50 ml @ 25 mls/hr 1X ONCE IV Last administered on 12/10/16 19:03; Start 12/10/16 at 19:00; Stop 12/10/16 at 20:59; Status DC Enoxaparin Sodium (Lovenox 40mg Syringe) 40 mg Q24H SQ ; Start 12/11/16 at 09:00 Metronidazole (Flagyl) 500 mg TID PO Last administered on 12/13/16 09:53; Start 12/10/16 at 22:00; Stop 12/13/16 at 12:37; Status DC Ondansetron HCl (Zofran) 4 mg PRN Q6HRS PRN IV NAUSEA/VOMITING Last administered on 12/10/16 23:05; Start 12/10/16 at 22:30; Stop 12/11/16 at 01:47 ; Status DC Ondansetron HCl (Zofran) 8 mg PRN Q6HRS PRN IV NAUSEA/VOMITING, 1ST CHOICE; Start 12/11/16 at 01:45 Ondansetron HCl (Zofran) 8 mg 1X ONCE IV Last administered on 12/11/16 01:50 ; Start 12/11/16 at 02:00; Stop 12/11/16 at 02:01; Status DC Prochlorperazine Edisylate (Compazine) 10 mg PRN Q8HRS PRN IV NAUSEA/VOMITING, 2ND CHOICE; Start 12/11/16 at 01:45 Sodium Chloride 1,000 ml @ 1,000 mls/hr 1X ONCE IV Last administered on 12:30; Start 12/11/16 at 12:00; Stop 12/11/16 at 12:59; Status DC Pantoprazole Sodium (Protonix) 40 mg BIDAC PO Last administered on 12/14/16 08 :47; Start 12/11/16 at 12:00 Sucralfate (Carafate) 1 gm QIDACHS PRN PO reflux Last administered on 20:45; Start 12/11/16 at 12:00 Calcium Carbonate/ Glycine (Tums) 500 mg PRN AFTMEALHC PRN PO INDIGESTION; Start 12/11/16 at 12:00 Methylprednisolone Sodium Succinate (SOLU-Medrol 40MG VIAL) 40 mg Q12HR IV ; Start 12/11/16 at 13:30; Status Cancel Budesonide (Pulmicort) 0.5 mg RTBID NEB Last administered on 12/14/16 07:39; Start 12/11/16 at 13:30 Methylprednisolone Sodium Succinate (SOLU-Medrol 40MG VIAL) 40 mg Q12HR IV Last administered on 12/12/16 08:45; Start 12/11/16 at 21:00; Stop 12/12/16 at 11:52; Status DC Nicotine (Nicoderm Cq 14mg) 1 patch PRN DAILY PRN TD SMOKING CESSATION Last administered on 12/13/16 13:30; Start 12/11/16 at 13:45 Alprazolam (Xanax) 1 mg 1X ONCE PO Last administered on 12/12/16 01:22; Start 12/12/16 at 01:30; Stop 12/12/16 at 01:31; Status DC Piperacillin Sod/ Tazobactam Sod 3.375 gm/Sodium Chloride 50 ml @ 100 mls/hr Q6HRS IV Last administered on 12/14/16 05:50; Start 12/12/16 at 12:00 Prednisone (Prednisone) 40 mg DAILY08 PO Last administered on 12/13/16 09:53; Start 12/13/16 at 08:00; Stop 12/13/16 at 12:41; Status DC Acetaminophen/ Hydrocodone Bitart (Lortab 5/325) 1 tab PRN Q4HRS PRN PO PAIN Last administered on 12/13/16 12:06; Start 12/12/16 at 18:00; Stop 12/13/16 at 12:37; Status DC Lidocaine (Lidoderm) 1 patch DAILY TD Last administered on 12/14/16 08:47; Start 12/13/16 at 12:45 Acetaminophen/ Hydrocodone Bitart (Lortab 7.5/325) 1 tab PRN Q4HRS PRN PO PAIN Last administered on 12/14/16 02:44; Start 12/13/16 at 12:45 Lactobacillus Acidophilus (Bacid, Cheryl-Bid) 1 tab DAILY PO Last administered on 12/14/16 08:47; Start 12/14/16 at 09:00 Benzonatate (Tessalon Perle) 100 mg [id number] PO Last administered on 12/14/16 08 :47; Start 12/13/16 at 14:00 Methylprednisolone Sodium Succinate (SOLU-Medrol 125MG VIAL) 125 mg 1X ONCE IV Last administered on 12/13/16 13:28; Start 12/13/16 at 12:45; Stop 12/13/16 at 12:46; Status DC Prednisone (Prednisone) 40 mg BIDWMEALS PO ; Start 12/13/16 at 17:00; Stop 12/13 at 17:00; Status DC Montelukast Sodium (Singulair) 10 mg QHS PO Last administered on 12/13/16 21: 01; Start 12/13/16 at 21:00 Methylprednisolone Sodium Succinate (SOLU-Medrol 40MG VIAL) 40 mg Q8HRS IV Last administered on 12/14/16 05:50; Start 12/13/16 at 14:00 Albuterol Sulfate (Ventolin Neb Soln) 2.5 mg PRN Q6HRS PRN NEB SOA; Start 12/13 at 16:15 Active Scripts Active Ibuprofen 200 Mg Tablet 200 Mg PO PRN Q6HRS PRN Reported Alprazolam 1 Mg Tablet 1 Tab PO TID Levothyroxine Sodium 100 Mcg Tablet 1 Tab PO DAILY Acetaminophen Pm Caplet (Acetaminophen/Diphenhydramine) 1 Each Tablet 2 Each PO HS Vitals/I & O Vital Sign - Last 24 Hours 12/13/16 12/13/16 12/13/16 12/13/16 10:51 12:23 15:00 15:39 Temp 98.1 98.1 98.1 98.1 Pulse 91 86 Resp 18 18 B/P (MAP) 110/71 (84) 92/59 (70) Pulse Ox 90 90 91 O2 Delivery Nasal Cannula Nasal Cannula Nasal Cannula Nasal Cannula O2 Flow Rate 5.0 5.0 5.0 5.0 12/13/16 12/13/16 12/13/16 12/13/16 19:00 19:45 21:04 21:08 Temp 97.9 97.9 Pulse 87 Resp B/P (MAP) 111/75 (87) Pulse Ox 90 91 O2 Delivery Nasal Cannula Nasal Cannula Nasal Cannula O2 Flow Rate 5.0 5.0 12/13/16 12/13/16 12/13/16 12/14/16 21:13 23:00 23:51 02:44 Temp 97.9 97.9 Pulse 79 Resp 18 20 B/P (MAP) 99/62 (74) Pulse Ox 91 90 O2 Delivery Nasal Cannula Nasal Cannula Nasal Cannula O2 Flow Rate 5.0 5.0 5.0 12/14/16 12/14/16 12/14/16 12/14/16 03:00 03:44 04:14 07:00 Temp 98.1 97.9 98.1 97.9 Pulse 85 76 Resp 18 B/P (MAP) 115/54 (74) 101/69 (80) Pulse Ox 90 90 91 O2 Delivery Nasal Cannula Nasal Cannula Nasal Cannula O2 Flow Rate 5.0 6.0 5.0 12/14/16 07:40 Pulse Ox 92 O2 Delivery Nasal Cannula O2 Flow Rate 6.0 Intake and Output 12/13/16 12/13/16 12/14/16 14:59 22:59 06:59 Intake Total 450 ml 700 ml 150 ml Output Total 250 ml Balance 450 ml 700 ml -100 ml JACQUES BURK MD Dec 14, 2016 09:52
[2016-12-14 10:50] VITALS: BP 129/73
[2016-12-14] MEDS: ENOXAPARIN 40 MG/0.4 ML SYRINGE. SQ SCH (11:57)
[2016-12-14 14:52] VITALS: BP 130/70
--- NOTE | 2016-12-14 18:58 | PDOC ---
PULMONARY PROGRESS NOTES Subjective PAT FEELS BETTER WANTS TO GO HOME Vitals Vital Signs Date Time Temp Pulse Resp B/P (MAP) Pulse Ox O2 Delivery O2 Flow Rate FiO2 12/14/16 15:28 Nasal Cannula 5.0 12/14/16 14:52 97.9 90 18 130/70 (90) 91 97.9 ROS: No Nausea General: Alert, Oriented X4, No acute distress HEENT: Other (nc at perrl, nose throat clear, neck...no lap, thyromegaly) Lungs: Wheezing Cardiovascular: S1, S2 Abdomen: Soft, Non-tender, Other (no mass) Neuro Exam: Alert Extremities: No Edema Skin: Warm Labs Laboratory Tests Test 12/13/16 05:20 12/14/16 03:54 White Blood Count 15.3 x10^3/uL (4.0-11.0) 13.6 x10^3/uL (4.0-11.0) Red Blood Count 4.14 x10^6/uL (3.50-5.40) 4.06 x10^6/uL (3.50-5.40) Hemoglobin 12.7 g/dL (12.0-15.5) 12.6 g/dL (12.0-15.5) Hematocrit 38.8 % (36.0-47.0) 38.0 % (36.0-47.0) Mean Corpuscular Volume 94 fL (79-100) 94 fL (79-100) Mean Corpuscular Hemoglobin 31 pg (25-35) 31 pg (25-35) Mean Corpuscular Hemoglobin Concent 33 g/dL (31-37) 33 g/dL (31-37) Red Cell Distribution Width 15.1 % (11.5-14.5) 15.1 % (11.5-14.5) Platelet Count 155 x10^3/uL (140-400) 186 x10^3/uL (140-400) Neutrophils (%) (Auto) 92 % (31-73) 92 % (31-73) Lymphocytes (%) (Auto) 5 % (24-48) 4 % (24-48) Monocytes (%) (Auto) 4 % (0-9) 5 % (0-9) Eosinophils (%) (Auto) 0 % (0-3) 0 % (0-3) Basophils (%) (Auto) 0 % (0-3) 0 % (0-3) Neutrophils # (Auto) 14.0 x10^3uL (1.8-7.7) 12.4 x10^3uL (1.8-7.7) Lymphocytes # (Auto) 0.7 x10^3/uL (1.0-4.8) 0.5 x10^3/uL (1.0-4.8) Monocytes # (Auto) 0.5 x10^3/uL (0.0-1.1) 0.6 x10^3/uL (0.0-1.1) Eosinophils # (Auto) 0.0 x10^3/uL (0.0-0.7) 0.0 x10^3/uL (0.0-0.7) Basophils # (Auto) 0.0 x10^3/uL (0.0-0.2) 0.0 x10^3/uL (0.0-0.2) Segmented Neutrophils % 61 % (35-66) Band Neutrophils % 31 % (0-9) Lymphocytes % 5 % (24-48) Monocytes % 3 % (0-10) Platelet Estimate Adequate (ADEQUATE) Laboratory Tests Test 12/14/16 03:54 White Blood Count 13.6 x10^3/uL (4.0-11.0) Red Blood Count 4.06 x10^6/uL (3.50-5.40) Hemoglobin 12.6 g/dL (12.0-15.5) Hematocrit 38.0 % (36.0-47.0) Mean Corpuscular Volume 94 fL (79-100) Mean Corpuscular Hemoglobin 31 pg (25-35) Mean Corpuscular Hemoglobin Concent 33 g/dL (31-37) Red Cell Distribution Width 15.1 % (11.5-14.5) Platelet Count 186 x10^3/uL (140-400) Neutrophils (%) (Auto) 92 % (31-73) Lymphocytes (%) (Auto) 4 % (24-48) Monocytes (%) (Auto) 5 % (0-9) Eosinophils (%) (Auto) 0 % (0-3) Basophils (%) (Auto) 0 % (0-3) Neutrophils # (Auto) 12.4 x10^3uL (1.8-7.7) Lymphocytes # (Auto) 0.5 x10^3/uL (1.0-4.8) Monocytes # (Auto) 0.6 x10^3/uL (0.0-1.1) Eosinophils # (Auto) 0.0 x10^3/uL (0.0-0.7) Basophils # (Auto) 0.0 x10^3/uL (0.0-0.2) Medications Active Scripts Medications Dose Route/Sig Max Daily Dose Days Date Category Alprazolam 1 Mg Tablet 1 Tab PO TID 12/10/16 Reported Levothyroxine Sodium 100 Mcg Tablet 1 Tab PO DAILY 12/10/16 Reported Ibuprofen 200 Mg Tablet 200 Mg PO PRN Q6HRS PRN 02/24/16 Rx Acetaminophen Pm Caplet (Acetaminophen/Diphenhydramine) 1 Each Tablet 2 Each PO HS 11/11/15 Reported Impression . IMPRESSION: 1. Acute respiratory failure 2. Pneumonia. 3. Abnormal chest x-ray. 4. Acute exacerbation of chronic obstructive pulmonary disease. 5. Smoker. 6. Hepatitis C. 7. allergic rhinitis Plan . HOME IN AM OK WILL HAVE CM CHECK OPTIONS OF 02, PATIENT AGREES TO PAY SOME HOME ON TAPER PRED AND WILFRID SANTIAGO MD Dec 14, 2016 18:58
[2016-12-14 19:00] VITALS: BP 132/89
[2016-12-14] MEDS: MONTELUKAST SODIUM 10 MG TABLET. PO SCH (20:46)
[2016-12-15] MEDS: PIPERACILLIN/TAZOBACTAM 3.375 GM in IV NORMAL SALINE 50ML 50 ML IV SCH ×3 (00:01→11:34)
[2016-12-15] MEDS: ALBUTEROL SULFATE 2.5 MG/3 ML NEBU. NEB SCH ×5 (00:05→16:00)
[2016-12-15] MEDS: HYDROcodone/APAP 7.5/325MG 1 TAB TABLET PO PRN ×4 (00:53→16:26)
[2016-12-15] MEDS: diphenhydrAMINE HCL 25 MG CAPSULE PO PRN (00:53)
[2016-12-15] MEDS: guaiFENesin/CODEINE 100mg/10mg 5 ML LIQUID PO PRN ×2 (04:14→16:26)
[2016-12-15] MEDS: methylPREDNISolone SOD SUCC PF 40 MG/ML VIAL. IV SCH ×2 (05:47→14:00)
[2016-12-15] MEDS: LEVOTHYROXINE 100 MCG TABLET PO SCH (05:50)
[2016-12-15 06:55] LABS: BASO % 0 % (0-3); EOS % 0 % (0-3); HEMATOCRIT 40.1 % (36.0-47.0); LYMPH # 0.9 x10^3/uL (1.0-4.8); LYMPH % 6 % (24-48); MEAN CORPUSCULAR HEMOGLOBIN 30 pg (25-35); MEAN CORPUSCULAR HGB CONC 32 g/dL (31-37); MEAN CORPUSCULAR VOLUME 94 fL (79-100); MONO % 7 % (0-9); NEUT % 87 % (31-73); PLATELET COUNT 274 x10^3/uL (140-400); RED BLOOD COUNT 4.27 x10^6/uL (3.50-5.40); RED CELL DISTRIBUTION WIDTH 15.4 % (11.5-14.5); WHITE BLOOD COUNT 14.1 x10^3/uL (4.0-11.0)
[2016-12-15 07:00] VITALS: BP 76/42
[2016-12-15] MEDS: BUDESONIDE 0.5 MG/2 ML NEBU. NEB SCH (07:26)
[2016-12-15] MEDS: PANTOPRAZOLE 40 MG TABLET.DR. PO SCH (07:51)
[2016-12-15] MEDS: BENZONATATE 100 MG CAPSULE. PO SCH ×2 (08:28→14:00)
[2016-12-15] MEDS: POTASSIUM CHLORIDE 20 MEQ TABLET.ER. PO SCH (08:28)
[2016-12-15] MEDS: ALPRAZolam 1 MG TABLET PO SCH ×2 (08:28→14:00)
[2016-12-15] MEDS: LACTOBACILLUS ACIDOPH & BULGAR 1 TABLET. PO SCH (08:29)
[2016-12-15] MEDS: LIDOCAINE (700MG/PATCH) PATCH. TD SCH (08:31)
[2016-12-15] MEDS: DOXYCYCLINE HYCLATE 100 MG in IV DEXTROSE 5% 100 ML IV SCH (08:31)
[2016-12-15] MEDS: ENOXAPARIN 40 MG/0.4 ML SYRINGE. SQ SCH (08:44)
[2016-12-15 11:00] VITALS: BP 102/60
[2016-12-15] MEDS ORDERED: PRED-220 PO (13:43)
[2016-12-15] MEDS ORDERED: LEVO100T5 PO (13:43)
[2016-12-15] MEDS ORDERED: ALPR1TAB6 PO (13:43)
[2016-12-15] MEDS ORDERED: guaiFENesin/CODEINE 100mg/10mg PO (13:43)
[2016-12-15] MEDS ORDERED: DOXY100C2 PO (13:43)
[2016-12-15] MEDS ORDERED: IPRA4AER IH (13:44)
[2016-12-15] MEDS ORDERED: OXYC1TAB7 PO (13:54)
[2016-12-15] MEDS ORDERED: BENZ100C PO (13:54)
[2016-12-15 15:00] VITALS: BP 113/75
--- NOTE | 2016-12-15 15:34 | PDOC3 ---
Discharge Summary Visit Information Date of Admission: Dec 10, 2016 Date of Discharge: Dec 15, 2016 Admitting Diagnosis: pneumonia Final Diagnosis 1. B PNA: zosyn - mucolytics, guaif AC. inhaled steroids, req. IV solumedrol 2. COPD exacerbation: cont steroids, nebs, suppl O2 3. Sepsis: recurrent fevers. 4. Diarrhea: limited, c. diff neg 5. Hypomagnesemia: resolved 6. Hypokalemia: resolved 7. tobaccoism Problems Medical Problems: (1) Pneumonia Status: Acute Brief Hospital Course Allergies Allergies Coded Allergies Type Severity Reaction Last Updated Verified clindamycin Allergy Severe Hives 11/10/15 Yes morphine Adverse Reaction Intermediate PRURITIS 12/19/15 Yes Vital Signs Vital Signs Date Time Temp Pulse Resp B/P (MAP) Pulse Ox O2 Delivery O2 Flow Rate FiO2 12/15/16 15:00 98.1 84 20 113/75 (88) 90 Nasal Cannula 3.0 98.1 Lab Results Laboratory Tests Test 12/14/16 03:54 12/15/16 06:10 White Blood Count 13.6 x10^3/uL (4.0-11.0) 14.1 x10^3/uL (4.0-11.0) Red Blood Count 4.06 x10^6/uL (3.50-5.40) 4.27 x10^6/uL (3.50-5.40) Hemoglobin 12.6 g/dL (12.0-15.5) 13.0 g/dL (12.0-15.5) Hematocrit 38.0 % (36.0-47.0) 40.1 % (36.0-47.0) Mean Corpuscular Volume 94 fL (79-100) 94 fL (79-100) Mean Corpuscular Hemoglobin 31 pg (25-35) 30 pg (25-35) Mean Corpuscular Hemoglobin Concent 33 g/dL (31-37) 32 g/dL (31-37) Red Cell Distribution Width 15.1 % (11.5-14.5) 15.4 % (11.5-14.5) Platelet Count 186 x10^3/uL (140-400) 274 x10^3/uL (140-400) Neutrophils (%) (Auto) 92 % (31-73) 87 % (31-73) Lymphocytes (%) (Auto) 4 % (24-48) 6 % (24-48) Monocytes (%) (Auto) 5 % (0-9) 7 % (0-9) Eosinophils (%) (Auto) 0 % (0-3) 0 % (0-3) Basophils (%) (Auto) 0 % (0-3) 0 % (0-3) Neutrophils # (Auto) 12.4 x10^3uL (1.8-7.7) 12.3 x10^3uL (1.8-7.7) Lymphocytes # (Auto) 0.5 x10^3/uL (1.0-4.8) 0.9 x10^3/uL (1.0-4.8) Monocytes # (Auto) 0.6 x10^3/uL (0.0-1.1) 0.9 x10^3/uL (0.0-1.1) Eosinophils # (Auto) 0.0 x10^3/uL (0.0-0.7) 0.0 x10^3/uL (0.0-0.7) Basophils # (Auto) 0.0 x10^3/uL (0.0-0.2) 0.0 x10^3/uL (0.0-0.2) Laboratory Tests Test 12/15/16 06:10 White Blood Count 14.1 x10^3/uL (4.0-11.0) Red Blood Count 4.27 x10^6/uL (3.50-5.40) Hemoglobin 13.0 g/dL (12.0-15.5) Hematocrit 40.1 % (36.0-47.0) Mean Corpuscular Volume 94 fL (79-100) Mean Corpuscular Hemoglobin 30 pg (25-35) Mean Corpuscular Hemoglobin Concent 32 g/dL (31-37) Red Cell Distribution Width 15.4 % (11.5-14.5) Platelet Count 274 x10^3/uL (140-400) Neutrophils (%) (Auto) 87 % (31-73) Lymphocytes (%) (Auto) 6 % (24-48) Monocytes (%) (Auto) 7 % (0-9) Eosinophils (%) (Auto) 0 % (0-3) Basophils (%) (Auto) 0 % (0-3) Neutrophils # (Auto) 12.3 x10^3uL (1.8-7.7) Lymphocytes # (Auto) 0.9 x10^3/uL (1.0-4.8) Monocytes # (Auto) 0.9 x10^3/uL (0.0-1.1) Eosinophils # (Auto) 0.0 x10^3/uL (0.0-0.7) Basophils # (Auto) 0.0 x10^3/uL (0.0-0.2) Brief Hospital Course Ms. Russell is a 56 old admit with cough, dyspnea, hypoxia. CT scan showed PNA, IV abx, steroids, nebs and support PULM consult, cleared for DC by DR. Mane Pt asked to be discharged daily for 3 days, had persistent hypoxia and weakness and cough, DC on 3 liters 02 at rest and 6 ltr with exertion, she assured SW that she would be able to provide Prednisone taper 40 down to 10 over 10 days Doxy for DC f/u pulm clinic Discharge Information Condition at Discharge: Improved Follow Up: Weeks Disposition/Orders: D/C to Home Scheduled Acetaminophen/Diphenhydramine (Acetaminophen Pm Caplet), 2 EACH PO HS, (Reported ) Benzonatate (Tessalon Perle), 1 CAP PO TID Doxycycline Hyclate (Doxycycline Hyclate), 1 CAP PO BID Levothyroxine Sodium (Levothyroxine Sodium), 1 TAB PO DAILY Prednisone (Prednisone), 10 MG PO UD Scheduled PRN Alprazolam (Alprazolam), 1 TAB PO PRN BID PRN for ANXIETY / AGITATION Ibuprofen (Ibuprofen), 200 MG PO PRN Q6HRS PRN for INFLAMMATION Ipratropium/Albuterol Sulfate (Combivent Respimat Inhal), 1 INH IH QID PRN for shortness of breath Oxycodone Hcl/Acetaminophen (Oxycodone-Acetaminophen 5-325), 1 EACH PO PRN Q6HRS PRN for PAIN [guaiFENesin/CODEINE 100mg/10mg], 5 ML PO PRN Q6HRS PRN for COUGH Patient Instructions Patient Instructions doxycycline 100 mg PO BID X7 days was on zosyn here > 30 min ; 2 visits CXR 12/11 The heart and pulmonary vessels are normal. There are suspect background changes of emphysema or fibrosis. There is retrocardiac density and a density in the right lower lung field. Findings are compatible with pneumonia. Follow-up imaging, to resolution is advised. There is no significant pleural fluid. There is no pneumothorax. JACQUES BURK MD Dec 15, 2016 15:34
== END 2016-12-15 17:44 | disposition home or self-care (01) | DRG 871 ==
LOC: ER 08:12 → 5 SOUTH 09:20
PROVIDERS: ADMIT Internal Medicine Hematology & Oncology; ATTEND Internal Medicine Hematology & Oncology
DX: A41.9 Sepsis, unspecified organism (principal); J18.9 Pneumonia, unspecified organism; J96.01 Acute respiratory failure with hypoxia; J44.1 Chronic obstructive pulmonary disease with (acute) exacerbation; J44.0 Chronic obstructive pulmonary disease with (acute) lower respiratory infection; B19.20 Unspecified viral hepatitis C without hepatic coma; E03.9 Hypothyroidism, unspecified; E83.42 Hypomagnesemia; E86.0 Dehydration; E87.6 Hypokalemia; F17.210 Nicotine dependence, cigarettes, uncomplicated; J30.9 Allergic rhinitis, unspecified; Z83.3 Family history of diabetes mellitus; Z90.710 Acquired absence of both cervix and uterus; Z88.5 Allergy status to narcotic agent; Z88.8 Allergy status to other drugs, medicaments and biological substances
CPT/HCPCS: 36415; 71010; 80048; 80053; 81001; 83605; 83735; 84484; 85007; 85027; 87040; 87324; 93005; 94250; 94620; 94640; 94760; 96361; 96374; 99406; J0690; J0696; J1650; J2405; J2543; J2920; J2930; J3490; J7030; J7060; J7512; J7613; J7620; J7626; Q0163; 99285-25

== ENCOUNTER 2016-12-16 10:22 | Inpatient (IN) | payer SELFPAY ==
[~2016-12-16] VITALS: Ht 154.9 cm; Wt 55.5 kg
[~2016-12-16 10:22] MED LIST changes: +ALPR1TAB6 PO; +BENZ100C PO; +DOXY100C2 PO; +IPRA4AER IH; +LEVO100T5 PO; +OXYC1TAB7 PO; +PRED-220 PO; +guaiFENesin/CODEINE 100mg/10mg PO
[2016-12-16] MEDS ORDERED: IPRATRPIUM/ALBUTEROL 0.5/2.5MG 3 ML NEBU. NEB ONE (10:45)
[2016-12-16] MEDS ORDERED: methylPREDNISolone SOD SUCC PF 125 MG/2 ML VIAL. IV ONE (10:45)
[2016-12-16] MEDS ORDERED: ALBUTEROL SULFATE 2.5 MG/3 ML NEBU. NEB ONE (10:45)
[2016-12-16] MEDS: IV NORMAL SALINE 1000ML BAG 1,000 ML IV SCH ×2 (10:53→11:40)
[2016-12-16 10:57] LABS: BASO % 0 % (0-3); EOS % 0 % (0-3); HEMATOCRIT 38.8 % (36.0-47.0); HEMOGLOBIN 13.5 g/dL (12.0-15.5); LYMPH # 1.4 x10^3/uL (1.0-4.8); LYMPH % 10 % (24-48); MEAN CORPUSCULAR HEMOGLOBIN 31 pg (25-35); MEAN CORPUSCULAR HGB CONC 35 g/dL (31-37); MONO % 8 % (0-9); NEUT % 82 % (31-73); PLATELET COUNT 387 x10^3/uL (140-400); RED BLOOD COUNT 4.31 x10^6/uL (3.50-5.40); RED CELL DISTRIBUTION WIDTH 14.9 % (11.5-14.5); WHITE BLOOD COUNT 14.1 x10^3/uL (4.0-11.0)
--- NOTE | 2016-12-16 11:03 | RAD ---
AP chest, 12/16/2016: History: Worsening respiratory distress Comparison is made to a study from 12/10/2016. The heart size is normal. There are dense focal parenchymal opacities in both lung bases which have progressed. The pulmonary markings in the remainder of the lungs are mildly prominent in an interstitial pattern, likely due to fibrosis. No pleural fluid or pneumothorax is seen. IMPRESSION: Worsening dense bibasilar infiltrates suggesting pneumonia.
[2016-12-16 11:12] LABS: MEAN CORPUSCULAR VOLUME 91 fL (79-100)
[2016-12-16 11:13] LABS: CALCIUM 7.3 mg/dL (8.5-10.1); CREATININE 0.8 mg/dL (0.6-1.0); GFR 74.7; POTASSIUM 4.1 mmol/L (3.5-5.1)
[2016-12-16 11:20] LABS: ALBUMIN 2.6 g/dL (3.4-5.0); ALBUMIN/GLOBULIN RATIO 0.6 (1.0-1.7); TOTAL BILIRUBIN 0.5 mg/dL (0.2-1.0); TOTAL PROTEIN 6.7 g/dL (6.4-8.2)
[2016-12-16] MEDS ORDERED: PIP/TAZO PER PHARMACY MC PRN (11:30)
[2016-12-16] MEDS ORDERED: VANCOMYCIN 1.25 GM in IV NORMAL SALINE 250ML 250 ML IV ONE (11:30)
[2016-12-16] MEDS ORDERED: levOFLOXacin PER PHARMACY. MC PRN (11:30)
[2016-12-16] MEDS ORDERED: ONDANSETRON PF 4 MG/2 ML VIAL. IV PRN (12:15)
[2016-12-16] MEDS ORDERED: ACETAMINOPHEN 325 MG TABLET. PO PRN (12:15)
[2016-12-16 12:40] VITALS: BP 133/65
[2016-12-16] MEDS ORDERED: BUDESONIDE 0.5 MG/2 ML NEBU. NEB ONE (13:00)
[2016-12-16] MEDS: fentaNYL PF VIAL 100 MCG/2 ML VIAL IV PRN ×3 (13:07→22:48)
--- NOTE | 2016-12-16 13:22 | PHYS DOC ---
Past Medical History Past Medical History: COPD, Hypothyroid, Hepatitis, Pneumonia, UTI Additional Past Medical Histor: HEP C, hypoxemia,ESOPHAGEAL VARISES Past Surgical History: Hysterectomy, Other Additional Past Surgical Histo: THYROID SX, ankle fx Alcohol Use: None Drug Use: None Adult General Chief Complaint Chief Complaint: DYSPNEA/RESPIRATOY DISTRESS HPI HPI Patient is a 56 year old female who presents with shortness of breath. Patient reports severe shortness of breath since yesterday, worsening this morning. Reports associated productive cough. Denies fevers or chills, chest pain, lower extremity pain or swelling. She states she left the hospital yesterday after admission for pneumonia. She ran out of home oxygen. In the hospital she was requiring 5-8 L. She reports history of COPD. Denies history of CHF for CAD. She smokes daily. She does not have a PCP. Review of Systems Review of Systems Constitutional: Denies fever or chills Eyes: Denies change in visual acuity HENT: Denies nasal congestion or sore throat Respiratory: Reports cough and shortness of breath Cardiovascular: Denies chest pain or edema GI: Denies abdominal pain, nausea, vomiting Musculoskeletal: Denies back pain or joint pain Integument: Denies rash or skin lesions Neurologic: Denies headache, focal weakness or sensory changes Current Medications Current Medications Current Medications Medications (Trade) Dose Ordered Sig/Latonya Start Time Stop Time Status Last Admin Dose Admin Albuterol Sulfate (Ventolin Neb Soln) 5 mg 1X ONCE 12/16/16 10:45 12/16/16 10:46 DC 12/16/16 10:45 5 MG Albuterol/ Ipratropium (Duoneb) 3 ml 1X ONCE 12/16/16 10:45 12/16/16 10:46 DC 12/16/16 10:45 3 ML Methylprednisolone Sodium Succinate (SOLU-Medrol 125MG VIAL) 125 mg 1X ONCE 12/16/16 10:45 12/16/16 10:46 DC 12/16/16 10:41 125 MG Sodium Chloride 1,000 ml @ 1,500 mls/hr Q40M 12/16/16 11:00 12/16/16 11:59 DC 12/16/16 10:53 1,500 MLS/HR Allergies Allergies Allergies Coded Allergies Type Severity Reaction Last Updated Verified clindamycin Allergy Severe Hives 11/10/15 Yes morphine Adverse Reaction Intermediate PRURITIS 12/19/15 Yes Physical Exam Physical Exam Constitutional: Well developed, well nourished, acute respiratory distress is present HENT: Normocephalic, atraumatic, bilateral external ears normal, oropharynx moist, nose normal. Eyes: conjunctiva normal, no discharge. Neck: supple, no stridor. Cardiovascular: Tachycardic, regular, no murmurs, no edema. Lungs & Thorax: Diminished in bases, LCTAB, no wheezing, no respiratory distress. Increased worker breathing, tachypnea Abdomen: soft, nontender, nondistended. Skin: Warm, dry, no erythema, no rash. Back: No tenderness. Extremities: No tenderness, no edema. No calf tenderness or swelling. Neurologic: Alert and oriented X 3, no focal deficits noted. Psychologic: Affect normal, judgement normal, mood normal. Current Patient Data Vital Signs Vital Signs Date Time Temp Pulse Resp B/P (MAP) Pulse Ox O2 Delivery O2 Flow Rate FiO2 12/16/16 11:21 98 19 129/72 (91) 92 12/16/16 10:38 Nasal Cannula 6.0 12/16/16 10:23 98.3 98.3 Lab Values Laboratory Tests Test 12/16/16 10:30 White Blood Count 14.1 x10^3/uL (4.0-11.0) H Red Blood Count 4.31 x10^6/uL (3.50-5.40) Hemoglobin 13.5 g/dL (12.0-15.5) Hematocrit 38.8 % (36.0-47.0) Mean Corpuscular Volume 91 fL (79-100) Mean Corpuscular Hemoglobin 31 pg (25-35) Mean Corpuscular Hemoglobin Concent 35 g/dL (31-37) Red Cell Distribution Width 14.9 % (11.5-14.5) H Platelet Count 387 x10^3/uL (140-400) Neutrophils (%) (Auto) 82 % (31-73) H Lymphocytes (%) (Auto) 10 % (24-48) L Monocytes (%) (Auto) 8 % (0-9) Eosinophils (%) (Auto) 0 % (0-3) Basophils (%) (Auto) 0 % (0-3) Neutrophils # (Auto) 11.6 x10^3uL (1.8-7.7) H Lymphocytes # (Auto) 1.4 x10^3/uL (1.0-4.8) Monocytes # (Auto) 1.1 x10^3/uL (0.0-1.1) Eosinophils # (Auto) 0.0 x10^3/uL (0.0-0.7) Basophils # (Auto) 0.0 x10^3/uL (0.0-0.2) Prothrombin Time 13.0 SEC (11.7-14.0) Prothrombin Time INR 1.0 (0.8-1.1) PTT 22 SEC (24-38) L Sodium Level 140 mmol/L (136-145) Potassium Level 4.1 mmol/L (3.5-5.1) Chloride Level 101 mmol/L (98-107) Carbon Dioxide Level 32 mmol/L (21-32) Anion Gap 7 (6-14) Blood Urea Nitrogen 18 mg/dL (7-20) Creatinine 0.8 mg/dL (0.6-1.0) Estimated GFR (Cockcroft-Gault) 74.7 BUN/Creatinine Ratio 23 (6-20) H Glucose Level 93 mg/dL (70-99) Lactic Acid Level 1.3 mmol/L (0.4-2.0) Calcium Level 7.3 mg/dL (8.5-10.1) L Total Bilirubin 0.5 mg/dL (0.2-1.0) Aspartate Amino Transferase (AST) 68 U/L (15-37) H Alanine Aminotransferase (ALT) 32 U/L (14-59) Alkaline Phosphatase 58 U/L (46-116) Troponin I Quantitative 0.025 ng/mL (0.000-0.055) ZI-Lxm-A-Type Natriuretic Peptide 4420 pg/mL (0-124) H Total Protein 6.7 g/dL (6.4-8.2) Albumin 2.6 g/dL (3.4-5.0) L Albumin/Globulin Ratio 0.6 (1.0-1.7) L Laboratory Tests 12/16/16 10:30 Laboratory Tests 12/16/16 10:30 EKG EKG Interpreted by me: Normal sinus rhythm rate 93, no acute ST or T wave changes, normal intervals, no ectopy. [] Radiology/Procedures Radiology/Procedures PROCEDURE: CHEST AP ONLY AP chest, 12/16/2016: History: Worsening respiratory distress Comparison is made to a study from 12/10/2016. The heart size is normal. There are dense focal parenchymal opacities in both lung bases which have progressed. The pulmonary markings in the remainder of the lungs are mildly prominent in an interstitial pattern, likely due to fibrosis. No pleural fluid or pneumothorax is seen. IMPRESSION: Worsening dense bibasilar infiltrates suggesting pneumonia. DICTATED and SIGNED BY: MERRILL CARDENAS MD DATE: 12/16/16 1058 [] Course & Med Decision Making Course & Med Decision Making Pertinent Labs and Imaging studies reviewed. (See chart for details) The patient presents with shortness of breath in respiratory distress. Oxygen saturation in the 60s when EMS arrived at her home. O2 sats are in the 90s here on nonrebreather. Administered nebulized breathing treatments and Solu-Medrol. She met criteria for sepsis with tachycardia and hypoxia as well as leukocytosis. Administered IV fluids per sepsis protocol although only 1 L bolus given as her BNP was elevated. Tachycardia improving with improvement of her respiratory status. Blood cultures and lactic acid were sent. She was found to have worsening bilateral infiltrates on chest x-ray. Gave vancomycin, Zosyn, and Levaquin for healthcare associated pneumonia, although anticipate antibiotic coverage may be narrowed after initial doses. Recommended admission to the hospital for further evaluation and treatment. Discussed with Dr. gregory who agrees to admit to inpatient status. She is actually known to him and I discovered she had left AGAINST MEDICAL ADVICE yesterday. She has been admitted in stable condition. [] Dragon Disclaimer Dragon Disclaimer This electronic medical record was generated, in whole or in part, using a voice recognition dictation system. Departure Departure Impression: Primary Impression: Pneumonia Additional Impressions: Sepsis COPD exacerbation Hypoxia Leukocytosis Elevated brain natriuretic peptide (BNP) level Disposition: ADMITTED INPATIENT Condition: GUARDED Referrals: DAY ELIAS (PCP) Problem Qualifiers AISHA MODI MD Dec 16, 2016 13:22
[2016-12-16] MEDS ORDERED: KETOROLAC TROMETHAMINE 30 MG/ML INJ. IV ONE (14:00)
--- NOTE | 2016-12-16 14:03 | EKG ---
[facility] [address] [place] [address] Test Date: 2016-12-16 Test Time: 10:25:38 Pat Name: AVA BARNEY Department: Room: 524 1 Gender: F Implementation Lead: : 1960 Requested By: AISHA MODI Order Number: [id number] Reading MD: Nicola Forrest Measurements Intervals [place] Rate: 93 P: 59 GA: 108 QRS: 89 QRSD: 70 T: 74 QT: 346 QTc: 433 Interpretive Statements SINUS RHYTHM Electronically Signed On 12-17-2016 8:57:16 CDT by Nicola Forrest
[2016-12-16] MEDS ORDERED: IOHEXOL 300 MG/ML 75 ML VIAL IV ONE (14:15)
[2016-12-16] MEDS ORDERED: CONTRAST GIVEN MC PRN (14:15)
[2016-12-16] MEDS: KETOROLAC 15 MG/ML VIAL. IV PRN ×2 (14:17→20:53)
[2016-12-16] MEDS: PIPERACILLIN/TAZOBACTAM 3.375 GM in IV NORMAL SALINE 50ML 50 ML IV SCH ×3 (14:18→22:57)
[2016-12-16] MEDS: VANCOMYCIN PER PHARMACY MC PRN (14:37)
[2016-12-16 15:00] VITALS: BP 157/78
--- NOTE | 2016-12-16 15:22 | RAD ---
CTA of the chest with contrast, 12/16/2016: History: Hypoxia Multidetector CT imaging was performed following an IV bolus injection of iodinated contrast material. Multiplanar reconstructions were produced including coronal MIP images. The central pulmonary arteries are well opacified and no filling defects are seen to suggest pulmonary emboli. There is mild calcific plaquing of the thoracic aorta without evidence of aneurysm. Mild subcarinal adenopathy is present. There is mild infiltrate along the posterior tibial inferior aspect of the left hilum with possible underlying mild hilar adenopathy. There is moderate dense peripheral pulmonary consolidation in the posterior aspects of the left lower lobe, the posterolateral aspect of the right lower lobe and the lateral aspect of the right middle lobe. There is a small patch of peribronchovascular infiltrate in the right upper lobe. There is moderate interlobular septal thickening in both lungs. There appear to be underlying emphysematous changes. Small bilateral pleural effusions are present. IMPRESSION: 1. No CT evidence of central pulmonary emboli. 2. Moderate bilateral dense pulmonary infiltrates with dominant involvement of the lower and right middle lobes, most compatible with pneumonia. 3. Moderate interlobular septal thickening suggesting a component of interstitial pulmonary edema. 4. Small bilateral pleural effusions. 5. Emphysema. 6. Mild subcarinal adenopathy. PQRS Compliance Statement: One or more of the following individualized dose reduction techniques were utilized for this examination: 1. Automated exposure control 2. Adjustment of the mA and/or kV according to patient size 3. Use of iterative reconstruction technique
[2016-12-16] MEDS ORDERED: IPRATRPIUM/ALBUTEROL 0.5/2.5MG 3 ML NEBU. NEB SCH (16:00)
[2016-12-16] MEDS: IPRATRPIUM/ALBUTEROL 0.5/2.5MG 3 ML NEBU. NEB SCH ×3 (16:05→22:00)
--- NOTE | 2016-12-16 16:16 | PDOC1 ---
History and Physical Date of Admission Date of Admission DATE: 12/16/16 TIME: 16:09 Identification/Chief Complaint Chief Complaint shortness of breath, cough Problems: Source Source: Patient History of Present Illness History of Present Illness Ms. Russell, is a 56 year old female admit with chest pain and dyspnea She was just DC here yesterday, was admit with bilat PNA, had hypoxia here, 6 min walk cleared for DC yesterday on 3 liters at rest and 6 liters with exertion. She reports that she obtained some, but it did not work. cough has worsened. no sputum production, + chills, unsure of fever she did go home and restart cigarette use. Past Medical History Cardiovascular: No pertinent hx Pulmonary: No pertinent hx, COPD GI: Diverticulosis, Other Hepatobiliary: Hep A/B/C Psych: Anxiety, Depression Infectious disease: Other Endocrine: Hypothyroidism Past Surgical History Past Surgical History: Hysterectomy Family History Family History: Diabetes Social History Smoke: No ALCOHOL: none Drugs: None Current Problem List Problem List Problems Medical Problems: (1) COPD exacerbation Status: Acute (2) Elevated brain natriuretic peptide (BNP) level Status: Acute (3) Hypoxia Status: Acute (4) Leukocytosis Status: Acute (5) Sepsis Status: Acute Problems: Current Medications Current Medications Current Medications Albuterol/ Ipratropium (Duoneb) 3 ml 1X ONCE NEB Last administered on 10:45; Start 12/16/16 at 10:45; Stop 12/16/16 at 10:46; Status DC Albuterol Sulfate (Ventolin Neb Soln) 5 mg 1X ONCE NEB Last administered on 10:45; Start 12/16/16 at 10:45; Stop 12/16/16 at 10:46; Status DC Methylprednisolone Sodium Succinate (SOLU-Medrol 125MG VIAL) 125 mg 1X ONCE IV Last administered on 12/16/16 10:41; Start 12/16/16 at 10:45; Stop 12/16/16 at 10:46; Status DC Sodium Chloride 1,000 ml @ 1,500 mls/hr Q40M IV Last administered on 10:53; Start 12/16/16 at 11:00; Stop 12/16/16 at 11:59; Status DC Levofloxacin/ Dextrose (Levaquin Per Pharmacy) 1 each PRN DAILY PRN MC SEE COMMENTS; Start 12/16/16 at 11:30 Vancomycin HCl (Vanco Per Pharmacy) 1 each PRN DAILY PRN MC SEE COMMENTS Last administered on 12/16/16 14:37; Start 12/16/16 at 11:30 Piperacillin Sod/ Tazobactam Sod (Zosyn Per Pharmacy) 1 each PRN DAILY PRN MC SEE COMMENTS; Start 12/16/16 at 11:30 Levofloxacin/ Dextrose 150 ml @ 100 mls/hr Q24H IV ; Start 12/16/16 at 13:00 Vancomycin HCl 1.25 gm/Sodium Chloride 250 ml @ 166.667 mls/hr 1X ONCE IV Last administered on 12/16/16 12:13; Start 12/16/16 at 11:30; Stop 12/16/16 at 12:59; Status DC Piperacillin Sod/ Tazobactam Sod 3.375 gm/Sodium Chloride 50 ml @ 100 mls/hr Q6HRS IV Last administered on 12/16/16 14:18; Start 12/16/16 at 12:00 Ondansetron HCl (Zofran) 4 mg PRN Q8HRS PRN IV NAUSEA/VOMITING; Start 12/16/16 at 12:15; Stop 12/17/16 at 12:14 Fentanyl Citrate (Fentanyl 2ml Vial) 50 mcg PRN Q2HR PRN IV PAIN Last administered on 12/16/16 13:07; Start 12/16/16 at 12:15; Stop 12/17/16 at 12:14 Acetaminophen (Tylenol) 650 mg PRN Q4HRS PRN PO FEVER; Start 12/16/16 at 12:15 ; Stop 12/17/16 at 12:14 Albuterol/ Ipratropium (Duoneb) 3 ml RTQID NEB ; Start 12/16/16 at 16:00; Stop 12/16/16 at 16:00; Status DC Prednisone (Prednisone) 40 mg DAILY PO ; Start 12/17/16 at 09:00 Albuterol/ Ipratropium (Duoneb) 3 ml Q4HRS W/A NEB Last administered on 16:05; Start 12/16/16 at 14:00 Budesonide (Pulmicort) 0.5 mg RTBID NEB ; Start 12/16/16 at 20:00 Budesonide (Pulmicort) 0.5 mg 1X ONCE NEB Last administered on 12/16/16 16:05 ; Start 12/16/16 at 13:00; Stop 12/16/16 at 13:01; Status DC Ketorolac Tromethamine (Toradol) 30 mg 1X ONCE IV Last administered on 15:13; Start 12/16/16 at 14:00; Stop 12/16/16 at 14:01; Status DC Ketorolac Tromethamine (Toradol) 15 mg PRN Q6HRS PRN IV PAIN Last administered on 12/16/16 14:17; Start 12/16/16 at 15:00; Stop 12/21/16 at 14:59 Iohexol (Omnipaque 300 Mg/ml) 75 ml 1X ONCE IV Last administered on 12/16/16 14:48; Start 12/16/16 at 14:15; Stop 12/16/16 at 14:16; Status DC Info (Do NOT chart on this entry -- for MONITORING) 1 each PRN DAILY PRN MC SEE COMMENTS; Start 12/16/16 at 14:15; Stop 12/18/16 at 14:14 Guaifenesin (Robitussin) 200 mg PRN Q4HRS PRN PO COUGH Last administered on 14:26; Start 12/16/16 at 14:30 Vancomycin HCl 750 mg/Sodium Chloride 250 ml @ 250 mls/hr Q12H IV ; Start 12/17 at 00:00 Vancomycin HCl 1 each 1X ONCE MC ; Start 12/17/16 at 23:30; Stop 12/17/16 at 23 :31 Active Scripts Active Tessalon Perle (Benzonatate) 100 Mg Capsule 1 Cap PO TID Oxycodone-Acetaminophen 5-325 (Oxycodone Hcl/Acetaminophen) 1 Each Tablet 1 Each PO PRN Q6HRS PRN Combivent Respimat Inhal (Ipratropium/Albuterol Sulfate) 4 Gm Aer.w.adap 1 Inh IH QID PRN Doxycycline Hyclate 100 Mg Capsule 1 Cap PO BID [guaiFENesin/CODEINE 100mg/10mg] 5 ML Liquid 5 Ml PO PRN Q6HRS PRN Prednisone 10 Mg Tablet 10 Mg PO UD Take 4 tablets by mouth daily for 3 days, then take 2 tablets by mouth daily for 3 days, then take 1 tablet by mouth daily for 3 days, then stop. Alprazolam 1 Mg Tablet 1 Tab PO PRN BID PRN Levothyroxine Sodium 100 Mcg Tablet 1 Tab PO DAILY Ibuprofen 200 Mg Tablet 200 Mg PO PRN Q6HRS PRN Reported Acetaminophen Pm Caplet (Acetaminophen/Diphenhydramine) 1 Each Tablet 2 Each PO HS Allergies Allergies: Coded Allergies: clindamycin (Verified Allergy, Severe, Hives, 11/10/15) morphine (Verified Adverse Reaction, Intermediate, PRURITIS, 12/19/15) ROS General: No: Chills, Night Sweats, Fatigue, Malaise, Appetite, Other PSYCHOLOGICAL ROS: No: Anxiety, Behavioral Disorder, Concentration difficultie , Decreased libido, Depression, Disorientation, Hallucinations, Hostility, Irritablity, Memory difficulties, Mood Swings, Obsessive thoughts, Physical abuse, Sexual abuse, Sleep disturbances, Suicidal ideation, Other Eyes: No Blurry vision, No Decreased vision, No Double vision, No Dry eyes, No Excessive tearing, No Eye Pain, No Itchy Eyes, No Loss of vision, No Photophobia , No Scotomata, No Uses contacts, No Uses glasses, No Other HEENT: No: Heacaches, Visual Changes, Hearing change, Nasal congestion, Nasal discharge, Oral lesions, Sinus pain, Sore Throat, Epistaxis, Sneezing, Snoring, Tinnitus, Vertigo, Vocal changes, Other Respiratory: No: Cough, Hemoptysis, Orthopnea, Pleuritic Pain, Shortness of breath, SOB with excertion, Sputum Changes, Stridor, Tachypnea, Wheezing, Other Cardiovascular: No Chest Pain, No Palpitations, No Orthopnea, No Paroxysmal Noc. Dyspnea, No Edema, No Lt Headedness, No Other Gastrointestinal: No Nausea, No Vomiting, No Abdominal Pain, No Diarrhea, No Constipation, No Melena, No Hematochezia, No Other Genitourinary: No Dysuria, No Frequency, No Incontinence, No Hematuria, No Retention, No Discharge, No Urgency, No Pain, No Flank Pain, No Other, No , No , No , No , No , No , No Musculoskeletal: No Gait Disturbance, No Joint Pain, No Joint Stiffness, No Joint Swelling, No Muscle Pain, No Muscular Weakness, No Pain In:, No Swelling In:, No Other Neurological: No Behavorial Changes, No Bowel/Bladder ControlChng, No Confusion , No Dizziness, No Gait Disturbance, No Headaches, No Impaired Coord/balance, No Memory Loss, No Numbness/Tingling, No Seizures, No Speech Problems, No Tremors, No Visual Changes, No Weakness, No Other Skin: No Dry Skin, No Eczema, No Hair Changes, No Lumps, No Mole Changes, No Mottling, No Nail Changes, No Pruritus, No Rash, No Skin Lesion Changes, No Other, No Acne Physical Exam General: Alert, Oriented X3, Cooperative, No acute distress HEENT: Atraumatic, PERRLA, EOMI Lungs: Other (limited vol,, wheeze and rale) Heart: no gallops, no murmurs Abdomen: Normal bowel sounds, Soft Rectal Exam: not examined Extremities: No clubbing, No edema, Normal pulses Skin: No rashes, No significant lesion Neuro: Normal speech, Normal tone, Sensation intact, Cranial nerves 3-12 NL Psych/Mental Status: Mood NL Vitals Vitals Vital Signs Date Time Temp Pulse Resp B/P (MAP) Pulse Ox O2 Delivery O2 Flow Rate FiO2 12/16/16 15:00 98.2 99 18 157/78 (104) 93 Venturi Mask 5.0 98.2 Labs Labs Laboratory Tests Test 12/16/16 10:30 12/16/16 12:45 White Blood Count 14.1 x10^3/uL (4.0-11.0) Red Blood Count 4.31 x10^6/uL (3.50-5.40) Hemoglobin 13.5 g/dL (12.0-15.5) Hematocrit 38.8 % (36.0-47.0) Mean Corpuscular Volume 91 fL (79-100) Mean Corpuscular Hemoglobin 31 pg (25-35) Mean Corpuscular Hemoglobin Concent 35 g/dL (31-37) Red Cell Distribution Width 14.9 % (11.5-14.5) Platelet Count 387 x10^3/uL (140-400) Neutrophils (%) (Auto) 82 % (31-73) Lymphocytes (%) (Auto) 10 % (24-48) Monocytes (%) (Auto) 8 % (0-9) Eosinophils (%) (Auto) 0 % (0-3) Basophils (%) (Auto) 0 % (0-3) Neutrophils # (Auto) 11.6 x10^3uL (1.8-7.7) Lymphocytes # (Auto) 1.4 x10^3/uL (1.0-4.8) Monocytes # (Auto) 1.1 x10^3/uL (0.0-1.1) Eosinophils # (Auto) 0.0 x10^3/uL (0.0-0.7) Basophils # (Auto) 0.0 x10^3/uL (0.0-0.2) Prothrombin Time 13.0 SEC (11.7-14.0) Prothromb Time International Ratio 1.0 (0.8-1.1) Activated Partial Thromboplast Time 22 SEC (24-38) Sodium Level 140 mmol/L (136-145) Potassium Level 4.1 mmol/L (3.5-5.1) Chloride Level 101 mmol/L (98-107) Carbon Dioxide Level 32 mmol/L (21-32) Anion Gap 7 (6-14) Blood Urea Nitrogen 18 mg/dL (7-20) Creatinine 0.8 mg/dL (0.6-1.0) Estimated GFR (Cockcroft-Gault) 74.7 BUN/Creatinine Ratio 23 (6-20) Glucose Level 93 mg/dL (70-99) Lactic Acid Level 1.3 mmol/L (0.4-2.0) 1.2 mmol/L (0.4-2.0) Calcium Level 7.3 mg/dL (8.5-10.1) Total Bilirubin 0.5 mg/dL (0.2-1.0) Aspartate Amino Transf (AST/SGOT) 68 U/L (15-37) Alanine Aminotransferase (ALT/SGPT) 32 U/L (14-59) Alkaline Phosphatase 58 U/L (46-116) Troponin I Quantitative 0.025 ng/mL (0.000-0.055) TC-Mjh-K-Type Natriuretic Peptide 4420 pg/mL (0-124) Total Protein 6.7 g/dL (6.4-8.2) Albumin 2.6 g/dL (3.4-5.0) Albumin/Globulin Ratio 0.6 (1.0-1.7) Laboratory Tests Test 12/16/16 10:30 12/16/16 12:45 White Blood Count 14.1 x10^3/uL (4.0-11.0) Red Blood Count 4.31 x10^6/uL (3.50-5.40) Hemoglobin 13.5 g/dL (12.0-15.5) Hematocrit 38.8 % (36.0-47.0) Mean Corpuscular Volume 91 fL (79-100) Mean Corpuscular Hemoglobin 31 pg (25-35) Mean Corpuscular Hemoglobin Concent 35 g/dL (31-37) Red Cell Distribution Width 14.9 % (11.5-14.5) Platelet Count 387 x10^3/uL (140-400) Neutrophils (%) (Auto) 82 % (31-73) Lymphocytes (%) (Auto) 10 % (24-48) Monocytes (%) (Auto) 8 % (0-9) Eosinophils (%) (Auto) 0 % (0-3) Basophils (%) (Auto) 0 % (0-3) Neutrophils # (Auto) 11.6 x10^3uL (1.8-7.7) Lymphocytes # (Auto) 1.4 x10^3/uL (1.0-4.8) Monocytes # (Auto) 1.1 x10^3/uL (0.0-1.1) Eosinophils # (Auto) 0.0 x10^3/uL (0.0-0.7) Basophils # (Auto) 0.0 x10^3/uL (0.0-0.2) Prothrombin Time 13.0 SEC (11.7-14.0) Prothromb Time International Ratio 1.0 (0.8-1.1) Activated Partial Thromboplast Time 22 SEC (24-38) Sodium Level 140 mmol/L (136-145) Potassium Level 4.1 mmol/L (3.5-5.1) Chloride Level 101 mmol/L (98-107) Carbon Dioxide Level 32 mmol/L (21-32) Anion Gap 7 (6-14) Blood Urea Nitrogen 18 mg/dL (7-20) Creatinine 0.8 mg/dL (0.6-1.0) Estimated GFR (Cockcroft-Gault) 74.7 BUN/Creatinine Ratio 23 (6-20) Glucose Level 93 mg/dL (70-99) Lactic Acid Level 1.3 mmol/L (0.4-2.0) 1.2 mmol/L (0.4-2.0) Calcium Level 7.3 mg/dL (8.5-10.1) Total Bilirubin 0.5 mg/dL (0.2-1.0) Aspartate Amino Transf (AST/SGOT) 68 U/L (15-37) Alanine Aminotransferase (ALT/SGPT) 32 U/L (14-59) Alkaline Phosphatase 58 U/L (46-116) Troponin I Quantitative 0.025 ng/mL (0.000-0.055) DQ-Ipz-W-Type Natriuretic Peptide 4420 pg/mL (0-124) Total Protein 6.7 g/dL (6.4-8.2) Albumin 2.6 g/dL (3.4-5.0) Albumin/Globulin Ratio 0.6 (1.0-1.7) VTE Prophylaxis Ordered VTE Prophylaxis Devices: Yes VTE Pharmacological Prophylaxi: Yes Assessment/Plan Assessment/Plan acute hypoxic respiratory failure Pneumonia, now abx have broadened consult ID for sepsis PULM consult, check CT, Dr. Mane is also concerned of chest pain, poss other, possible infarct check echo, pulm edema tobaccoism, urge cessation. mod/severe malnutrition JACQUES BURK MD Dec 16, 2016 16:16
--- NOTE | 2016-12-16 16:22 | CARD ---
APPROVED REPORT EXAM: Two-dimensional and M-mode echocardiogram with Doppler and color Doppler. Other Information Quality : Average Rhythm : NSR INDICATION Cor pulmonale 2D DIMENSIONS RVDd2.2 (2.9-3.5cm)Left Atrium(2D)2.9 (1.6-4.0cm) IVSd0.9 (0.7-1.1cm)Aortic Root(2D)2.8 (2.0-3.7cm) LVDd3.9 (3.9-5.9cm)LVOT Diameter1.9 (1.8-2.4cm) PWd1.0 (0.7-1.1cm)LVDs3.0 (2.5-4.0cm) FS (%) 23.3 %SV30.9 ml LVEF(%)47.3 (>50%) Aortic Valve AoV Peak Ramin.114.4cm/sAoV VTI23.4cm AO Peak GR.5.2mmHgLVOT VTI 16.87cm AO Mean GR.2mmHgAVA (VTI)1.99cm2 Mitral Valve MV E Lqzcylpk17.3cm/sMV E Peak Gr.133mmHg MV DECEL [id number] A Vsbhwsue697.4cm/s MV OMP91voY/A Ratio1.0 MV A Aqxgdihs63hpHHV (PHT)3.79cm2 TDI Lateral E' P. V12.34cm/sMedial E' P. V11.55cm/s E/Lateral E'7.9E/Medial E'8.4 Tricuspid Valve TR P. Unbvevwv739ql/sRAP YYBFHUDJ81coKc TR Peak Gr.96baKfQTNW67zdBq Pulmonary Vein S1 Bshogsmk97.9cm/sS2 Vyhsdtvl52.82cm/s D2 Eyupxgqw72.8cm/s LEFT VENTRICLE The left ventricle is normal size. There is normal left ventricular wall thickness. Left ventricle sy stolic function is normal. The Ejection Fraction is 50-55%. The left ventricular diastolic function a nd filling is normal for age. RIGHT VENTRICLE The right ventricle is normal size. The right ventricular systolic function is normal. ATRIA The left atrium size is normal. The right atrium size is normal. The interatrial septum is intact wit h no evidence for an atrial septal defect or patent foramen ovale as noted on 2-D or Doppler imaging. AORTIC VALVE The aortic valve is normal in structure and function. The aortic valve is trileaflet. Doppler and Col or Flow revealed mild aortic regurgitation. There is no significant aortic valvular stenosis. MITRAL VALVE Slight doming of the anterior leaflet of the mitral valve leaflet. There is no mitral valve stenosis. Doppler and Color Flow revealed moderate mitral regurgitation. TRICUSPID VALVE The tricuspid valve is normal in structure. Doppler and Color Flow revealed moderate tricuspid regurg itation. The PA pressure was estimated at 49 mmHg. There is no tricuspid valve stenosis. PULMONIC VALVE The pulmonic valve is not well visualized. Doppler and Color Flow revealed no pulmonic valvular regur gitation. There is no pulmonic valvular stenosis. GREAT VESSELS The aortic root is normal in size. The ascending aorta is normal in size. Normal pulmonary venous chelsey w (Doppler). The IVC is dilated and collapses <50% with inspiration. PERICARDIAL EFFUSION There is no evidence of significant pericardial effusion. Critical Notification Date: 12/16/2016 Time: 16:14 Other Discipline : LUCAS Jacobs and Augusto Ball APRN Critical Value: Yes <Conclusion> Left ventricle systolic function is normal. The Ejection Fraction is 50-55%. Mild aortic regurgitation. Moderate mitral regurgitation. Moderate tricuspid regurgitation. The PA pressure was estimated at 49 mmHg. There is no evidence of significant pericardial effusion.
--- NOTE | 2016-12-16 18:57 | PDOC ---
PULMONARY PROGRESS NOTES Vitals Vital Signs Date Time Temp Pulse Resp B/P (MAP) Pulse Ox O2 Delivery O2 Flow Rate FiO2 12/16/16 17:32 Nasal Cannula 5.0 12/16/16 15:00 98.2 99 18 157/78 (104) 93 98.2 General: Alert, Oriented X4, No acute distress HEENT: Other Lungs: Wheezing Cardiovascular: S1, S2 Abdomen: Soft, Non-tender, Other Extremities: No Edema Labs Laboratory Tests Test 12/16/16 10:30 12/16/16 12:45 White Blood Count 14.1 x10^3/uL (4.0-11.0) Red Blood Count 4.31 x10^6/uL (3.50-5.40) Hemoglobin 13.5 g/dL (12.0-15.5) Hematocrit 38.8 % (36.0-47.0) Mean Corpuscular Volume 91 fL (79-100) Mean Corpuscular Hemoglobin 31 pg (25-35) Mean Corpuscular Hemoglobin Concent 35 g/dL (31-37) Red Cell Distribution Width 14.9 % (11.5-14.5) Platelet Count 387 x10^3/uL (140-400) Neutrophils (%) (Auto) 82 % (31-73) Lymphocytes (%) (Auto) 10 % (24-48) Monocytes (%) (Auto) 8 % (0-9) Eosinophils (%) (Auto) 0 % (0-3) Basophils (%) (Auto) 0 % (0-3) Neutrophils # (Auto) 11.6 x10^3uL (1.8-7.7) Lymphocytes # (Auto) 1.4 x10^3/uL (1.0-4.8) Monocytes # (Auto) 1.1 x10^3/uL (0.0-1.1) Eosinophils # (Auto) 0.0 x10^3/uL (0.0-0.7) Basophils # (Auto) 0.0 x10^3/uL (0.0-0.2) Prothrombin Time 13.0 SEC (11.7-14.0) Prothromb Time International Ratio 1.0 (0.8-1.1) Activated Partial Thromboplast Time 22 SEC (24-38) Sodium Level 140 mmol/L (136-145) Potassium Level 4.1 mmol/L (3.5-5.1) Chloride Level 101 mmol/L (98-107) Carbon Dioxide Level 32 mmol/L (21-32) Anion Gap 7 (6-14) Blood Urea Nitrogen 18 mg/dL (7-20) Creatinine 0.8 mg/dL (0.6-1.0) Estimated GFR (Cockcroft-Gault) 74.7 BUN/Creatinine Ratio 23 (6-20) Glucose Level 93 mg/dL (70-99) Lactic Acid Level 1.3 mmol/L (0.4-2.0) 1.2 mmol/L (0.4-2.0) Calcium Level 7.3 mg/dL (8.5-10.1) Total Bilirubin 0.5 mg/dL (0.2-1.0) Aspartate Amino Transf (AST/SGOT) 68 U/L (15-37) Alanine Aminotransferase (ALT/SGPT) 32 U/L (14-59) Alkaline Phosphatase 58 U/L (46-116) Troponin I Quantitative 0.025 ng/mL (0.000-0.055) RE-Qhl-E-Type Natriuretic Peptide 4420 pg/mL (0-124) Total Protein 6.7 g/dL (6.4-8.2) Albumin 2.6 g/dL (3.4-5.0) Albumin/Globulin Ratio 0.6 (1.0-1.7) Laboratory Tests Test 12/16/16 10:30 12/16/16 12:45 White Blood Count 14.1 x10^3/uL (4.0-11.0) Red Blood Count 4.31 x10^6/uL (3.50-5.40) Hemoglobin 13.5 g/dL (12.0-15.5) Hematocrit 38.8 % (36.0-47.0) Mean Corpuscular Volume 91 fL (79-100) Mean Corpuscular Hemoglobin 31 pg (25-35) Mean Corpuscular Hemoglobin Concent 35 g/dL (31-37) Red Cell Distribution Width 14.9 % (11.5-14.5) Platelet Count 387 x10^3/uL (140-400) Neutrophils (%) (Auto) 82 % (31-73) Lymphocytes (%) (Auto) 10 % (24-48) Monocytes (%) (Auto) 8 % (0-9) Eosinophils (%) (Auto) 0 % (0-3) Basophils (%) (Auto) 0 % (0-3) Neutrophils # (Auto) 11.6 x10^3uL (1.8-7.7) Lymphocytes # (Auto) 1.4 x10^3/uL (1.0-4.8) Monocytes # (Auto) 1.1 x10^3/uL (0.0-1.1) Eosinophils # (Auto) 0.0 x10^3/uL (0.0-0.7) Basophils # (Auto) 0.0 x10^3/uL (0.0-0.2) Prothrombin Time 13.0 SEC (11.7-14.0) Prothromb Time International Ratio 1.0 (0.8-1.1) Activated Partial Thromboplast Time 22 SEC (24-38) Sodium Level 140 mmol/L (136-145) Potassium Level 4.1 mmol/L (3.5-5.1) Chloride Level 101 mmol/L (98-107) Carbon Dioxide Level 32 mmol/L (21-32) Anion Gap 7 (6-14) Blood Urea Nitrogen 18 mg/dL (7-20) Creatinine 0.8 mg/dL (0.6-1.0) Estimated GFR (Cockcroft-Gault) 74.7 BUN/Creatinine Ratio 23 (6-20) Glucose Level 93 mg/dL (70-99) Lactic Acid Level 1.3 mmol/L (0.4-2.0) 1.2 mmol/L (0.4-2.0) Calcium Level 7.3 mg/dL (8.5-10.1) Total Bilirubin 0.5 mg/dL (0.2-1.0) Aspartate Amino Transf (AST/SGOT) 68 U/L (15-37) Alanine Aminotransferase (ALT/SGPT) 32 U/L (14-59) Alkaline Phosphatase 58 U/L (46-116) Troponin I Quantitative 0.025 ng/mL (0.000-0.055) JE-Kgy-R-Type Natriuretic Peptide 4420 pg/mL (0-124) Total Protein 6.7 g/dL (6.4-8.2) Albumin 2.6 g/dL (3.4-5.0) Albumin/Globulin Ratio 0.6 (1.0-1.7) Medications Active Scripts Medications Dose Route/Sig Max Daily Dose Days Date Category Dose Instructions Tessalon Perle (Benzonatate) 100 Mg Capsule 1 Cap PO TID 12/15/16 Rx Oxycodone-Acetaminophen 5-325 (Oxycodone Hcl/Acetaminophen) 1 Each Tablet 1 Each PO PRN Q6HRS PRN 12/15/16 Rx Combivent Respimat Inhal (Ipratropium/Albuterol Sulfate) 4 Gm Aer.w.adap 1 Inh IH QID PRN 12/15/16 Rx Doxycycline Hyclate 100 Mg Capsule 1 Cap PO BID 12/15/16 Rx [guaiFENesin/CODEINE 100mg/10mg] 5 ML Liquid 5 Ml PO PRN Q6HRS PRN 12/15/16 Rx Prednisone 10 Mg Tablet 10 Mg PO UD 12/15/16 Rx Take 4 tablets by mouth daily for 3 days, then take 2 tablets by mouth daily for 3 days, then take 1 tablet by mouth daily for 3 days, then stop. Alprazolam 1 Mg Tablet 1 Tab PO PRN BID PRN 12/15/16 Rx Levothyroxine Sodium 100 Mcg Tablet 1 Tab PO DAILY 12/15/16 Rx Ibuprofen 200 Mg Tablet 200 Mg PO PRN Q6HRS PRN 02/24/16 Rx Acetaminophen Pm Caplet (Acetaminophen/Diphenhydramine) 1 Each Tablet 2 Each PO HS 11/11/15 Reported Impression . FULL NOTE DICTATED SPOKE WITH DR BHARGAVI MEYERS OT PE AND WILFRID JACOBS MD Dec 16, 2016 18:57
[2016-12-16 19:00] VITALS: BP 145/83
[2016-12-16] MEDS: BUDESONIDE 0.5 MG/2 ML NEBU. NEB SCH (19:34)
[2016-12-16] MEDS: guaiFENesin/CODEINE 100mg/10mg 5 ML LIQUID PO PRN (19:51)
[2016-12-16] MEDS: ALPRAZolam 1 MG TABLET PO PRN (19:52)
[2016-12-16] MEDS: BENZONATATE 100 MG CAPSULE. PO SCH (19:52)
[2016-12-16 22:56] VITALS: BP 148/76
[2016-12-16] MEDS: VANCOMYCIN 750 MG in IV NORMAL SALINE 250ML 250 ML IV SCH (22:57)
[2016-12-17] MEDS ORDERED: diphenhydrAMINE HCL 25 MG CAPSULE PO ONE (00:15)
--- NOTE | 2016-12-17 00:37 | ACF ---
Admission Forms Criteria PNEUMONIA, COMMUNITY ACQUIRED Clinical Indications for Admission to Inpatient Care (Place 'X' for any and all applicable criteria): Admission to inpatient status for two midnights or more is indicated for ANY ONE of the following (1)(2)(3): [ ]I. Hypoxia [ ]II. Hemodynamic instability [ ]III. Altered mental status that is severe or persistent [ ]IV. Dehydration that is severe or persistent. [ ]V. Bacteremia [ ]. Moderate-risk or high-risk category patients (Pneumonia Severity Index ( PSI) class IV or V, or CURB-65 score of 3 or greater). [ ]VII. Intermediate-risk category patients (e.g., PSI class III or CURB-65 score 2) who do not improve with outpatient and observation care treatment [ ]VIII. Outpatient treatment failure as indicated by 1 or more of the following(9): [ ]a) Failure to respond to antibiotic (eg, resistant organism) [ ]b) Clinically significant adverse effects from medication (eg, vomiting) [ ]c) Complications of pneumonia (eg, empyema, bacteremia) [ ]d) Significant worsening of comorbid cond necessitating inpatient care (eg, chronic heart failure) [X]IX. Appropriate diagnostic testing and treatment unavailable in outpatient or recovery facility (eg, testing or infection control measures unavailable) [ ]X. Respiratory finding (eg. tachypnea) that do not respond to outpatient observation care treatment [ ]XI. Complicated pleural effusions (eg, emphysema, exudative, loculated) [ ]XII. Immunocompromised patients (e.g., AIDS, chronic steroid use) at moderate or high risk based on clinical evaluation. Extended stay beyond goal length of stay may be needed for (20) [ ]a) Unclear diagnosis [ ]b) Pleural disease [ ]c) Severe pneumonia or treatment failure [ ]d) Respiratory failure [ ]e) New onset hyponatremia (serum Na concentration less than 135 mEq/L(mmol/ L) [ ]f) Clinically significant comorbid illness (eg, heart failure, atrial fibrillation with rapid heart rate, alcohol withdrawal, renal insufficiency)(34)(35) [ ]g) Comorbid acute exacerbation of COPD(36) [ ]h) Concomitant diagnosis of malignancy [ ]i) Concomitant altered mental status [ ]j) Culture-identified Gram-negative or antibiotic-resistant organism (eg, Pseudomonas, methicillin-resistant Staphylococcus aureus MRSA)(30) [ ]k) Healthcare-associated pneumonia (36) The original [facility] content created by [facility] has been revised. The portions of the content which have been revised are identified through the use of italic text, and [facility] has neither reviewed nor approved the modified material. All other unmodified content is copyright [facility]. Please see references footnoted in the original [facility] edition 2015 Admission Criteria Met?: Yes KARLY WOODARD Dec 17, 2016 00:37
[2016-12-17 02:53] VITALS: BP 122/70
[2016-12-17] MEDS: guaiFENesin/CODEINE 100mg/10mg 5 ML LIQUID PO PRN ×2 (02:58→09:06)
[2016-12-17] MEDS: KETOROLAC 15 MG/ML VIAL. IV PRN ×3 (02:58→15:27)
--- NOTE | 2016-12-17 03:06 | CONS ---
DATE OF CONSULTATION: 12/16/2016 ATTTENDING PHYSICIAN: Radha Vazquez MD DICTATING PHYSICIAN: Wilfrid Forrest MD. HISTORY OF PRESENT ILLNESS: The patient is a 56-year-old that was recently admitted with pneumonia, treated for acute exacerbation of COPD and pneumonia, was discharged home on oral antibiotics. She came in because she had increasing shortness of breath and increasing pleuritic type pain requiring more oxygen. She has been ____ to continue smoking. X-ray was obtained. I reviewed the x-ray revealing consolidation of the right lower lobe. PAST MEDICAL HISTORY: COPD, tobacco dependence, hypothyroidism, hepatitis, previous pneumonia as described above, and previous esophageal varices. PAST SURGICAL HISTORY: Status post ankle fracture repair. ALLERGIES: CLINDAMYCIN AND MORPHINE. PHYSICAL EXAMINATION: GENERAL: The patient was in severe pain. VITAL SIGNS: Stable. O2 saturation was greater than 92%. HEENT: Eyes, the sclerae were nonicteric. NECK: Jugular venous distention was not elevated. No lymphadenopathy. CHEST: Full expansion. LUNGS: Diminished breath sounds in the right base. CARDIOVASCULAR: Regular rate and rhythm with S1, S2, no S3. ABDOMEN: Soft, nontender, nondistended. EXTREMITIES: No clubbing, cyanosis or edema. DIAGNOSTIC DATA: Chest x-ray was reviewed. IMPRESSION: 1. Vdegw-qi-lbgcvyr respiratory failure. 2. Pneumonia with pleurisy. 3. Rule out possible pulmonary embolism with pulmonary infarct. PLAN: 1. Continue current antibiotics. 2. CT chest for PE protocol. 3. ____ pleurisy. I do appreciate the privilege in sharing in the patient's care. WILFRID FORREST MD DR: TONA/ray JOB#: [id number] / [id number]
[2016-12-17] MEDS: IPRATRPIUM/ALBUTEROL 0.5/2.5MG 3 ML NEBU. NEB SCH ×5 (06:00→20:22)
[2016-12-17] MEDS: PIPERACILLIN/TAZOBACTAM 3.375 GM in IV NORMAL SALINE 50ML 50 ML IV SCH ×4 (06:28→23:04)
[2016-12-17] MEDS: fentaNYL PF VIAL 100 MCG/2 ML VIAL IV PRN (06:28)
[2016-12-17] MEDS: LEVOTHYROXINE 100 MCG TABLET PO SCH (06:29)
[2016-12-17 07:00] VITALS: BP 140/85
[2016-12-17 07:30] LABS: BASO % 0 % (0-3); EOS % 0 % (0-3); HEMATOCRIT 33.8 % (36.0-47.0); HEMOGLOBIN 11.2 g/dL (12.0-15.5); LYMPH # 1.7 x10^3/uL (1.0-4.8); LYMPH % 17 % (24-48); MEAN CORPUSCULAR HEMOGLOBIN 31 pg (25-35); MEAN CORPUSCULAR HGB CONC 33 g/dL (31-37); MEAN CORPUSCULAR VOLUME 94 fL (79-100); MONO % 9 % (0-9); NEUT % 75 % (31-73); PLATELET COUNT 280 x10^3/uL (140-400); RED BLOOD COUNT 3.58 x10^6/uL (3.50-5.40); RED CELL DISTRIBUTION WIDTH 15.2 % (11.5-14.5); WHITE BLOOD COUNT 10.1 x10^3/uL (4.0-11.0)
[2016-12-17] MEDS: BUDESONIDE 0.5 MG/2 ML NEBU. NEB SCH ×2 (07:53→20:22)
[2016-12-17 07:57] LABS: ALBUMIN 2.2 g/dL (3.4-5.0); ALBUMIN/GLOBULIN RATIO 0.7 (1.0-1.7); CALCIUM 6.4 mg/dL (8.5-10.1); CREATININE 0.8 mg/dL (0.6-1.0); GFR 74.7; POTASSIUM 4.3 mmol/L (3.5-5.1); TOTAL BILIRUBIN 0.5 mg/dL (0.2-1.0); TOTAL PROTEIN 5.3 g/dL (6.4-8.2)
[2016-12-17] MEDS: predniSONE 20 MG TABLET PO SCH (09:05)
[2016-12-17] MEDS: ALPRAZolam 1 MG TABLET PO PRN ×2 (09:05→17:11)
[2016-12-17] MEDS: BENZONATATE 100 MG CAPSULE. PO SCH ×3 (09:06→20:32)
--- NOTE | 2016-12-17 10:21 | PDOC ---
PULMONARY PROGRESS NOTES Subjective PT FEEL SLIGHTLY BETTER Vitals Vital Signs Date Time Temp Pulse Resp B/P (MAP) Pulse Ox O2 Delivery O2 Flow Rate FiO2 12/17/16 08:00 Nasal Cannula 9.0 12/17/16 07:55 93 12/17/16 07:00 98.1 56 18 140/85 (103) 98.1 General: Alert, No acute distress HEENT: Other Lungs: Wheezing, Crackles Cardiovascular: S1, S2 Abdomen: Soft, Non-tender, Other Neuro Exam: Alert Extremities: No Edema Skin: Warm Labs Laboratory Tests Test 12/16/16 10:30 12/16/16 12:45 12/17/16 06:55 White Blood Count 14.1 x10^3/uL (4.0-11.0) 10.1 x10^3/uL (4.0-11.0) Red Blood Count 4.31 x10^6/uL (3.50-5.40) 3.58 x10^6/uL (3.50-5.40) Hemoglobin 13.5 g/dL (12.0-15.5) 11.2 g/dL (12.0-15.5) Hematocrit 38.8 % (36.0-47.0) 33.8 % (36.0-47.0) Mean Corpuscular Volume 91 fL (79-100) 94 fL (79-100) Mean Corpuscular Hemoglobin 31 pg (25-35) 31 pg (25-35) Mean Corpuscular Hemoglobin Concent 35 g/dL (31-37) 33 g/dL (31-37) Red Cell Distribution Width 14.9 % (11.5-14.5) 15.2 % (11.5-14.5) Platelet Count 387 x10^3/uL (140-400) 280 x10^3/uL (140-400) Neutrophils (%) (Auto) 82 % (31-73) 75 % (31-73) Lymphocytes (%) (Auto) 10 % (24-48) 17 % (24-48) Monocytes (%) (Auto) 8 % (0-9) 9 % (0-9) Eosinophils (%) (Auto) 0 % (0-3) 0 % (0-3) Basophils (%) (Auto) 0 % (0-3) 0 % (0-3) Neutrophils # (Auto) 11.6 x10^3uL (1.8-7.7) 7.5 x10^3uL (1.8-7.7) Lymphocytes # (Auto) 1.4 x10^3/uL (1.0-4.8) 1.7 x10^3/uL (1.0-4.8) Monocytes # (Auto) 1.1 x10^3/uL (0.0-1.1) 0.9 x10^3/uL (0.0-1.1) Eosinophils # (Auto) 0.0 x10^3/uL (0.0-0.7) 0.0 x10^3/uL (0.0-0.7) Basophils # (Auto) 0.0 x10^3/uL (0.0-0.2) 0.0 x10^3/uL (0.0-0.2) Prothrombin Time 13.0 SEC (11.7-14.0) Prothromb Time International Ratio 1.0 (0.8-1.1) Activated Partial Thromboplast Time 22 SEC (24-38) Sodium Level 140 mmol/L (136-145) 141 mmol/L (136-145) Potassium Level 4.1 mmol/L (3.5-5.1) 4.3 mmol/L (3.5-5.1) Chloride Level 101 mmol/L (98-107) 104 mmol/L (98-107) Carbon Dioxide Level 32 mmol/L (21-32) 26 mmol/L (21-32) Anion Gap 7 (6-14) 11 (6-14) Blood Urea Nitrogen 18 mg/dL (7-20) 14 mg/dL (7-20) Creatinine 0.8 mg/dL (0.6-1.0) 0.8 mg/dL (0.6-1.0) Estimated GFR (Cockcroft-Gault) 74.7 74.7 BUN/Creatinine Ratio 23 (6-20) 18 (6-20) Glucose Level 93 mg/dL (70-99) 86 mg/dL (70-99) Lactic Acid Level 1.3 mmol/L (0.4-2.0) 1.2 mmol/L (0.4-2.0) Calcium Level 7.3 mg/dL (8.5-10.1) 6.4 mg/dL (8.5-10.1) Total Bilirubin 0.5 mg/dL (0.2-1.0) 0.5 mg/dL (0.2-1.0) Aspartate Amino Transf (AST/SGOT) 68 U/L (15-37) 51 U/L (15-37) Alanine Aminotransferase (ALT/SGPT) 32 U/L (14-59) 24 U/L (14-59) Alkaline Phosphatase 58 U/L (46-116) 48 U/L (46-116) Troponin I Quantitative 0.025 ng/mL (0.000-0.055) CE-Zxz-Y-Type Natriuretic Peptide 4420 pg/mL (0-124) Total Protein 6.7 g/dL (6.4-8.2) 5.3 g/dL (6.4-8.2) Albumin 2.6 g/dL (3.4-5.0) 2.2 g/dL (3.4-5.0) Albumin/Globulin Ratio 0.6 (1.0-1.7) 0.7 (1.0-1.7) Laboratory Tests Test 12/16/16 10:30 12/16/16 12:45 12/17/16 06:55 White Blood Count 14.1 x10^3/uL (4.0-11.0) 10.1 x10^3/uL (4.0-11.0) Red Blood Count 4.31 x10^6/uL (3.50-5.40) 3.58 x10^6/uL (3.50-5.40) Hemoglobin 13.5 g/dL (12.0-15.5) 11.2 g/dL (12.0-15.5) Hematocrit 38.8 % (36.0-47.0) 33.8 % (36.0-47.0) Mean Corpuscular Volume 91 fL (79-100) 94 fL (79-100) Mean Corpuscular Hemoglobin 31 pg (25-35) 31 pg (25-35) Mean Corpuscular Hemoglobin Concent 35 g/dL (31-37) 33 g/dL (31-37) Red Cell Distribution Width 14.9 % (11.5-14.5) 15.2 % (11.5-14.5) Platelet Count 387 x10^3/uL (140-400) 280 x10^3/uL (140-400) Neutrophils (%) (Auto) 82 % (31-73) 75 % (31-73) Lymphocytes (%) (Auto) 10 % (24-48) 17 % (24-48) Monocytes (%) (Auto) 8 % (0-9) 9 % (0-9) Eosinophils (%) (Auto) 0 % (0-3) 0 % (0-3) Basophils (%) (Auto) 0 % (0-3) 0 % (0-3) Neutrophils # (Auto) 11.6 x10^3uL (1.8-7.7) 7.5 x10^3uL (1.8-7.7) Lymphocytes # (Auto) 1.4 x10^3/uL (1.0-4.8) 1.7 x10^3/uL (1.0-4.8) Monocytes # (Auto) 1.1 x10^3/uL (0.0-1.1) 0.9 x10^3/uL (0.0-1.1) Eosinophils # (Auto) 0.0 x10^3/uL (0.0-0.7) 0.0 x10^3/uL (0.0-0.7) Basophils # (Auto) 0.0 x10^3/uL (0.0-0.2) 0.0 x10^3/uL (0.0-0.2) Prothrombin Time 13.0 SEC (11.7-14.0) Prothromb Time International Ratio 1.0 (0.8-1.1) Activated Partial Thromboplast Time 22 SEC (24-38) Sodium Level 140 mmol/L (136-145) 141 mmol/L (136-145) Potassium Level 4.1 mmol/L (3.5-5.1) 4.3 mmol/L (3.5-5.1) Chloride Level 101 mmol/L (98-107) 104 mmol/L (98-107) Carbon Dioxide Level 32 mmol/L (21-32) 26 mmol/L (21-32) Anion Gap 7 (6-14) 11 (6-14) Blood Urea Nitrogen 18 mg/dL (7-20) 14 mg/dL (7-20) Creatinine 0.8 mg/dL (0.6-1.0) 0.8 mg/dL (0.6-1.0) Estimated GFR (Cockcroft-Gault) 74.7 74.7 BUN/Creatinine Ratio 23 (6-20) 18 (6-20) Glucose Level 93 mg/dL (70-99) 86 mg/dL (70-99) Lactic Acid Level 1.3 mmol/L (0.4-2.0) 1.2 mmol/L (0.4-2.0) Calcium Level 7.3 mg/dL (8.5-10.1) 6.4 mg/dL (8.5-10.1) Total Bilirubin 0.5 mg/dL (0.2-1.0) 0.5 mg/dL (0.2-1.0) Aspartate Amino Transf (AST/SGOT) 68 U/L (15-37) 51 U/L (15-37) Alanine Aminotransferase (ALT/SGPT) 32 U/L (14-59) 24 U/L (14-59) Alkaline Phosphatase 58 U/L (46-116) 48 U/L (46-116) Troponin I Quantitative 0.025 ng/mL (0.000-0.055) VT-Opz-I-Type Natriuretic Peptide 4420 pg/mL (0-124) Total Protein 6.7 g/dL (6.4-8.2) 5.3 g/dL (6.4-8.2) Albumin 2.6 g/dL (3.4-5.0) 2.2 g/dL (3.4-5.0) Albumin/Globulin Ratio 0.6 (1.0-1.7) 0.7 (1.0-1.7) Medications Active Scripts Medications Dose Route/Sig Max Daily Dose Days Date Category Dose Instructions Tessalon Perle (Benzonatate) 100 Mg Capsule 1 Cap PO TID 12/15/16 Rx Oxycodone-Acetaminophen 5-325 (Oxycodone Hcl/Acetaminophen) 1 Each Tablet 1 Each PO PRN Q6HRS PRN 12/15/16 Rx Combivent Respimat Inhal (Ipratropium/Albuterol Sulfate) 4 Gm Aer.w.adap 1 Inh IH QID PRN 12/15/16 Rx Doxycycline Hyclate 100 Mg Capsule 1 Cap PO BID 12/15/16 Rx [guaiFENesin/CODEINE 100mg/10mg] 5 ML Liquid 5 Ml PO PRN Q6HRS PRN 12/15/16 Rx Prednisone 10 Mg Tablet 10 Mg PO UD 12/15/16 Rx Take 4 tablets by mouth daily for 3 days, then take 2 tablets by mouth daily for 3 days, then take 1 tablet by mouth daily for 3 days, then stop. Alprazolam 1 Mg Tablet 1 Tab PO PRN BID PRN 12/15/16 Rx Levothyroxine Sodium 100 Mcg Tablet 1 Tab PO DAILY 12/15/16 Rx Ibuprofen 200 Mg Tablet 200 Mg PO PRN Q6HRS PRN 02/24/16 Rx Acetaminophen Pm Caplet (Acetaminophen/Diphenhydramine) 1 Each Tablet 2 Each PO HS 11/11/15 Reported Impression . IMPRESSION: 1. Cazwi-ed-ywssbkk respiratory failure. 2. Pneumonia with pleurisy. 3. CT CHEST NO PE Plan . Continue current antibiotics. Toradol WILFRID Coyne MD Dec 17, 2016 10:21
[2016-12-17 10:59] VITALS: BP 142/77
--- NOTE | 2016-12-17 11:51 | PDOC2 ---
DESHAWN VERAS SECURITIES CLERK 12/17/16 1151: CARDIAC CONSULT DATE OF CONSULT Date of Consult DATE: 12/17/16 TIME: 11:49 REASON FOR CONSULT Reason for Consult: mitral insufficiency REFERRING PHYSICIAN Referring Physician: George SOURCE Source: Chart review, Patient HISTORY OF PRESENT ILLNESS HISTORY OF PRESENT ILLNESS This is a pleasant 56 yo female admitted for complains of SOA. She has been noted with pneumonia. She has COPD and unfortunately continues to smoke tobacco. Reports no prior CP, palpitations, dizziness. Reports no prior CAD, CVA or hx of arrhythmias. No childhood heart disease. No known prior hx of valvular insufficiency or murmur. Presently she is still a little SOA while upright and slight wheezy. PAST MEDICAL HISTORY Cardiovascular: No pertinent hx Pulmonary: COPD, Pneumonia CENTRAL NERVOUS SYSTEM: Other (No pertinent history) GI: No pertinent hx Heme/Onc: No pertinent hx Hepatobiliary: No pertinent hx, Hep A/B/C (C) Psych: Anxiety, Depression Musculoskeletal: Osteoarthritis Rheumatologic: No pertinent hx Infectious disease: No pertinent hx ENT: No pertinent hx Renal/: No pertinent hx Endocrine: Hypothyroidism Dermatology: No pertinent hx PAST SURGICAL HISTORY Past Surgical History: Hysterectomy, Other (thyroidectomy) FAMILY HISTORY Family History: Coronary Artery Disease (mother) SOCIAL HISTORY Smoke: <1 pack per day (>35 yrs) ALCOHOL: none Drugs: None Lives: with Family CURRENT MEDICATIONS CURRENT MEDICATIONS Current Medications Medications (Trade) Dose Ordered Sig/Latonya Route PRN Reason Start Time Stop Time Status Last Admin Dose Admin Levofloxacin/ Dextrose 150 ml @ 100 mls/hr Q24H IV 12/16/16 13:00 12/16/16 16:23 Piperacillin Sod/ Tazobactam Sod 3.375 gm/Sodium Chloride 50 ml @ 100 mls/hr Q6HRS IV 12/16/16 12:00 12/17/16 06:28 Fentanyl Citrate (Fentanyl 2ml Vial) 50 mcg PRN Q2HR PRN IV PAIN 12/16/16 12:15 12/17/16 12:14 12/17/16 06:28 Prednisone (Prednisone) 40 mg DAILY PO 12/17/16 09:00 12/17/16 09:05 Albuterol/ Ipratropium (Duoneb) 3 ml Q4HRS W/A NEB 12/16/16 14:00 12/17/16 11:33 Budesonide (Pulmicort) 0.5 mg RTBID NEB 12/16/16 20:00 12/17/16 07:53 Budesonide (Pulmicort) 0.5 mg 1X ONCE NEB 12/16/16 13:00 12/16/16 13:01 DC 12/16/16 16:05 Ketorolac Tromethamine (Toradol) 30 mg 1X ONCE IV 12/16/16 14:00 12/16/16 14:01 DC 12/16/16 15:13 Ketorolac Tromethamine (Toradol) 15 mg PRN Q6HRS PRN IV PAIN 12/16/16 15:00 12/21/16 14:59 12/17/16 09:09 Iohexol (Omnipaque 300 Mg/ml) 75 ml 1X ONCE IV 12/16/16 14:15 12/16/16 14:16 DC 12/16/16 14:48 Guaifenesin (Robitussin) 200 mg PRN Q4HRS PRN PO COUGH 12/16/16 14:30 12/16/16 14:26 Vancomycin HCl 750 mg/Sodium Chloride 250 ml @ 250 mls/hr Q12H IV 12/17/16 00:00 12/16/16 22:57 Alprazolam (Xanax) 1 mg PRN BID PRN PO ANXIETY / AGITATION 12/16/16 18:15 12/17/16 09:05 Benzonatate (Tessalon Perle) 100 mg TID PO 12/16/16 21:00 12/17/16 09:06 Levothyroxine Sodium (Synthroid) 100 mcg DAILY07 PO 12/17/16 07:00 12/17/16 06:29 Guaifenesin/ Codeine Phosphate (Robitussin Ac) 5 ml PRN Q6HRS PRN PO COUGH 12/16/16 18:30 12/17/16 09:06 Diphenhydramine HCl (Benadryl) 50 mg 1X ONCE PO 12/17/16 00:15 12/17/16 00:16 DC 12/17/16 00:09 ALLERGIES ALLERGIES: Coded Allergies: clindamycin (Verified Allergy, Severe, Hives, 11/10/15) morphine (Verified Adverse Reaction, Intermediate, PRURITIS, 12/19/15) ROS Review of System 14 point ROS evaluated with pertinent positives noted per HPI PHYSICAL EXAM General: Alert, Oriented X3, Cooperative, mild distress HEENT: Atraumatic, Mucous membr. moist/pink Lungs: Other (diffuse crackles) Heart: Regular rate (SR), Normal S1, Normal S2, Other (4/6 systolic murmur to LLS border) Extremities: No cyanosis, Other (1+ bilateral LE pitting edema) Skin: No breakdown, No significant lesion Neuro: Normal speech, Sensation intact Psych/Mental Status: Mental status NL, Mood NL MUSCULOSKELETAL: Osteoarthritic changes both hands VITALS VITALS Vital Signs Date Time Temp Pulse Resp B/P (MAP) Pulse Ox O2 Delivery O2 Flow Rate FiO2 12/17/16 11:34 Venturi Mask 9.0 12/17/16 10:59 98.1 60 17 142/77 (98) 90 98.1 LABS Lab: Laboratory Tests Test 12/16/16 12:45 12/17/16 06:55 Lactic Acid Level 1.2 mmol/L (0.4-2.0) White Blood Count 10.1 x10^3/uL (4.0-11.0) Red Blood Count 3.58 x10^6/uL (3.50-5.40) Hemoglobin 11.2 g/dL (12.0-15.5) Hematocrit 33.8 % (36.0-47.0) Mean Corpuscular Volume 94 fL (79-100) Mean Corpuscular Hemoglobin 31 pg (25-35) Mean Corpuscular Hemoglobin Concent 33 g/dL (31-37) Red Cell Distribution Width 15.2 % (11.5-14.5) Platelet Count 280 x10^3/uL (140-400) Neutrophils (%) (Auto) 75 % (31-73) Lymphocytes (%) (Auto) 17 % (24-48) Monocytes (%) (Auto) 9 % (0-9) Eosinophils (%) (Auto) 0 % (0-3) Basophils (%) (Auto) 0 % (0-3) Neutrophils # (Auto) 7.5 x10^3uL (1.8-7.7) Lymphocytes # (Auto) 1.7 x10^3/uL (1.0-4.8) Monocytes # (Auto) 0.9 x10^3/uL (0.0-1.1) Eosinophils # (Auto) 0.0 x10^3/uL (0.0-0.7) Basophils # (Auto) 0.0 x10^3/uL (0.0-0.2) Sodium Level 141 mmol/L (136-145) Potassium Level 4.3 mmol/L (3.5-5.1) Chloride Level 104 mmol/L (98-107) Carbon Dioxide Level 26 mmol/L (21-32) Anion Gap 11 (6-14) Blood Urea Nitrogen 14 mg/dL (7-20) Creatinine 0.8 mg/dL (0.6-1.0) Estimated GFR (Cockcroft-Gault) 74.7 BUN/Creatinine Ratio 18 (6-20) Glucose Level 86 mg/dL (70-99) Calcium Level 6.4 mg/dL (8.5-10.1) Total Bilirubin 0.5 mg/dL (0.2-1.0) Aspartate Amino Transf (AST/SGOT) 51 U/L (15-37) Alanine Aminotransferase (ALT/SGPT) 24 U/L (14-59) Alkaline Phosphatase 48 U/L (46-116) Total Protein 5.3 g/dL (6.4-8.2) Albumin 2.2 g/dL (3.4-5.0) Albumin/Globulin Ratio 0.7 (1.0-1.7) ECHOCARDIOGRAM ECHOCARDIOGRAM <Conclusion> Left ventricle systolic function is normal. The Ejection Fraction is 50-55%. Mild aortic regurgitation. Moderate mitral regurgitation. Moderate tricuspid regurgitation. The PA pressure was estimated at 49 mmHg. There is no evidence of significant pericardial effusion. DATE: 12/16/16 1622 ASSESSMENT/PLAN ASSESSMENT/PLAN 1. AECOPD with CAP and continued tobaccoism 2. Acute diastolic CHF 3. Valvular insufficiency: Mild AI, Mod MR/TR with normal EF and wall motion 4. Hypothyroidism 5. Hypocalcemia: past total thyroidectomy. May need Ca supplementation. Recommendations 1. BP controlled without meds. Hydralazine IV PRN. Replace Ca then Lasix x1 then PRN 2. Smoking cessation 3. No cardiac symptoms. F/U as an outpt if complies. Repeat TTE in 6-12 months 4. Follow pulmonary recommendations 5. Recommend starting ECASA 81 mg for primary prevention. GI prophylaxis with Pepcid Problems: ENRIQUE ARNETT MD 12/17/16 2017: CARDIAC CONSULT ALLERGIES ALLERGIES: Coded Allergies: clindamycin (Verified Allergy, Severe, Hives, 11/10/15) morphine (Verified Adverse Reaction, Intermediate, PRURITIS, 12/19/15) ASSESSMENT/PLAN ASSESSMENT/PLAN Patient seen and examined. Agree with POLYSOMNOGRAPHY TECH's assessment and plan. Acute on chronic diastolic heart failure better compensated since admission with diuresis.. Continue treatment of acute copd exacerbn per pulm team 2D echo showed normal LV function with mod MR Thank you for your consultation. Problems: DESHAWN VERAS APRN Dec 17, 2016 11:51 ENRIQUE ARNETT MD Dec 17, 2016 20:17
[2016-12-17] MEDS ORDERED: CALCIUM GLUCONATE 1,000 MG in IV NORMAL SALINE 100ML 100 ML IV ONE ×2 (12:30→15:00)
[2016-12-17] MEDS ORDERED: FUROSEMIDE 40 MG/4 ML VIAL. IVP ONE (12:30)
[2016-12-17] MEDS: VANCOMYCIN PER PHARMACY MC PRN (12:44)
[2016-12-17] MEDS ORDERED: fentaNYL PF VIAL 100 MCG/2 ML VIAL IV PRN (13:15)
[2016-12-17] MEDS: VANCOMYCIN 750 MG in IV NORMAL SALINE 250ML 250 ML IV SCH ×2 (13:35→23:06)
--- NOTE | 2016-12-17 13:56 | PDOC ---
PROGRESS NOTES Chief Complaint Chief Complaint acute hypoxic respiratory failure Pneumonia, now abx have broadened sepsis chest pain, pleuritic, req. IV pain meds tobaccoism, mod/severe malnutrition History of Present Illness History of Present Illness Ct neg for infarct PNA appears worsened, cont more broad abx CV following mitral insuff. Ca++ replacement, check Vit D Vitals Vitals Vital Signs Date Time Temp Pulse Resp B/P (MAP) Pulse Ox O2 Delivery O2 Flow Rate FiO2 12/17/16 13:43 Venturi Mask 35.0 12/17/16 10:59 98.1 60 17 142/77 (98) 90 98.1 Physical Exam General: Alert, Oriented X3, Cooperative, moderate distress Heart: Regular rate (SR), Normal S1, Normal S2, Other (4/6 systolic murmur to LLS border) Lungs: Wheezing Abdomen: Normal bowel sounds, Soft Extremities: No cyanosis, Other (1+ bilateral LE pitting edema) Skin: No breakdown, No significant lesion Labs LABS Laboratory Tests Test 12/17/16 06:55 White Blood Count 10.1 x10^3/uL (4.0-11.0) Red Blood Count 3.58 x10^6/uL (3.50-5.40) Hemoglobin 11.2 g/dL (12.0-15.5) Hematocrit 33.8 % (36.0-47.0) Mean Corpuscular Volume 94 fL (79-100) Mean Corpuscular Hemoglobin 31 pg (25-35) Mean Corpuscular Hemoglobin Concent 33 g/dL (31-37) Red Cell Distribution Width 15.2 % (11.5-14.5) Platelet Count 280 x10^3/uL (140-400) Neutrophils (%) (Auto) 75 % (31-73) Lymphocytes (%) (Auto) 17 % (24-48) Monocytes (%) (Auto) 9 % (0-9) Eosinophils (%) (Auto) 0 % (0-3) Basophils (%) (Auto) 0 % (0-3) Neutrophils # (Auto) 7.5 x10^3uL (1.8-7.7) Lymphocytes # (Auto) 1.7 x10^3/uL (1.0-4.8) Monocytes # (Auto) 0.9 x10^3/uL (0.0-1.1) Eosinophils # (Auto) 0.0 x10^3/uL (0.0-0.7) Basophils # (Auto) 0.0 x10^3/uL (0.0-0.2) Sodium Level 141 mmol/L (136-145) Potassium Level 4.3 mmol/L (3.5-5.1) Chloride Level 104 mmol/L (98-107) Carbon Dioxide Level 26 mmol/L (21-32) Anion Gap 11 (6-14) Blood Urea Nitrogen 14 mg/dL (7-20) Creatinine 0.8 mg/dL (0.6-1.0) Estimated GFR (Cockcroft-Gault) 74.7 BUN/Creatinine Ratio 18 (6-20) Glucose Level 86 mg/dL (70-99) Calcium Level 6.4 mg/dL (8.5-10.1) Total Bilirubin 0.5 mg/dL (0.2-1.0) Aspartate Amino Transf (AST/SGOT) 51 U/L (15-37) Alanine Aminotransferase (ALT/SGPT) 24 U/L (14-59) Alkaline Phosphatase 48 U/L (46-116) Total Protein 5.3 g/dL (6.4-8.2) Albumin 2.2 g/dL (3.4-5.0) Albumin/Globulin Ratio 0.7 (1.0-1.7) Review of Systems Review of Systems chest pain poor PO intake dyspnea, abd and chest pain Assessment and Plan Assessmemt and Plan Problems Medical Problems: (1) COPD exacerbation Status: Acute (2) Elevated brain natriuretic peptide (BNP) level Status: Acute (3) Hypoxia Status: Acute (4) Leukocytosis Status: Acute (5) Sepsis Status: Acute Problems: Comment Review of Relevant I have reviewed the following items vasquez (where applicable) has been applied. Labs Laboratory Tests Test 12/16/16 10:30 12/16/16 12:45 12/17/16 06:55 White Blood Count 14.1 x10^3/uL (4.0-11.0) 10.1 x10^3/uL (4.0-11.0) Red Blood Count 4.31 x10^6/uL (3.50-5.40) 3.58 x10^6/uL (3.50-5.40) Hemoglobin 13.5 g/dL (12.0-15.5) 11.2 g/dL (12.0-15.5) Hematocrit 38.8 % (36.0-47.0) 33.8 % (36.0-47.0) Mean Corpuscular Volume 91 fL (79-100) 94 fL (79-100) Mean Corpuscular Hemoglobin 31 pg (25-35) 31 pg (25-35) Mean Corpuscular Hemoglobin Concent 35 g/dL (31-37) 33 g/dL (31-37) Red Cell Distribution Width 14.9 % (11.5-14.5) 15.2 % (11.5-14.5) Platelet Count 387 x10^3/uL (140-400) 280 x10^3/uL (140-400) Neutrophils (%) (Auto) 82 % (31-73) 75 % (31-73) Lymphocytes (%) (Auto) 10 % (24-48) 17 % (24-48) Monocytes (%) (Auto) 8 % (0-9) 9 % (0-9) Eosinophils (%) (Auto) 0 % (0-3) 0 % (0-3) Basophils (%) (Auto) 0 % (0-3) 0 % (0-3) Neutrophils # (Auto) 11.6 x10^3uL (1.8-7.7) 7.5 x10^3uL (1.8-7.7) Lymphocytes # (Auto) 1.4 x10^3/uL (1.0-4.8) 1.7 x10^3/uL (1.0-4.8) Monocytes # (Auto) 1.1 x10^3/uL (0.0-1.1) 0.9 x10^3/uL (0.0-1.1) Eosinophils # (Auto) 0.0 x10^3/uL (0.0-0.7) 0.0 x10^3/uL (0.0-0.7) Basophils # (Auto) 0.0 x10^3/uL (0.0-0.2) 0.0 x10^3/uL (0.0-0.2) Prothrombin Time 13.0 SEC (11.7-14.0) Prothromb Time International Ratio 1.0 (0.8-1.1) Activated Partial Thromboplast Time 22 SEC (24-38) Sodium Level 140 mmol/L (136-145) 141 mmol/L (136-145) Potassium Level 4.1 mmol/L (3.5-5.1) 4.3 mmol/L (3.5-5.1) Chloride Level 101 mmol/L (98-107) 104 mmol/L (98-107) Carbon Dioxide Level 32 mmol/L (21-32) 26 mmol/L (21-32) Anion Gap 7 (6-14) 11 (6-14) Blood Urea Nitrogen 18 mg/dL (7-20) 14 mg/dL (7-20) Creatinine 0.8 mg/dL (0.6-1.0) 0.8 mg/dL (0.6-1.0) Estimated GFR (Cockcroft-Gault) 74.7 74.7 BUN/Creatinine Ratio 23 (6-20) 18 (6-20) Glucose Level 93 mg/dL (70-99) 86 mg/dL (70-99) Lactic Acid Level 1.3 mmol/L (0.4-2.0) 1.2 mmol/L (0.4-2.0) Calcium Level 7.3 mg/dL (8.5-10.1) 6.4 mg/dL (8.5-10.1) Total Bilirubin 0.5 mg/dL (0.2-1.0) 0.5 mg/dL (0.2-1.0) Aspartate Amino Transf (AST/SGOT) 68 U/L (15-37) 51 U/L (15-37) Alanine Aminotransferase (ALT/SGPT) 32 U/L (14-59) 24 U/L (14-59) Alkaline Phosphatase 58 U/L (46-116) 48 U/L (46-116) Troponin I Quantitative 0.025 ng/mL (0.000-0.055) XD-Eyl-E-Type Natriuretic Peptide 4420 pg/mL (0-124) Total Protein 6.7 g/dL (6.4-8.2) 5.3 g/dL (6.4-8.2) Albumin 2.6 g/dL (3.4-5.0) 2.2 g/dL (3.4-5.0) Albumin/Globulin Ratio 0.6 (1.0-1.7) 0.7 (1.0-1.7) Laboratory Tests Test 12/17/16 06:55 White Blood Count 10.1 x10^3/uL (4.0-11.0) Red Blood Count 3.58 x10^6/uL (3.50-5.40) Hemoglobin 11.2 g/dL (12.0-15.5) Hematocrit 33.8 % (36.0-47.0) Mean Corpuscular Volume 94 fL (79-100) Mean Corpuscular Hemoglobin 31 pg (25-35) Mean Corpuscular Hemoglobin Concent 33 g/dL (31-37) Red Cell Distribution Width 15.2 % (11.5-14.5) Platelet Count 280 x10^3/uL (140-400) Neutrophils (%) (Auto) 75 % (31-73) Lymphocytes (%) (Auto) 17 % (24-48) Monocytes (%) (Auto) 9 % (0-9) Eosinophils (%) (Auto) 0 % (0-3) Basophils (%) (Auto) 0 % (0-3) Neutrophils # (Auto) 7.5 x10^3uL (1.8-7.7) Lymphocytes # (Auto) 1.7 x10^3/uL (1.0-4.8) Monocytes # (Auto) 0.9 x10^3/uL (0.0-1.1) Eosinophils # (Auto) 0.0 x10^3/uL (0.0-0.7) Basophils # (Auto) 0.0 x10^3/uL (0.0-0.2) Sodium Level 141 mmol/L (136-145) Potassium Level 4.3 mmol/L (3.5-5.1) Chloride Level 104 mmol/L (98-107) Carbon Dioxide Level 26 mmol/L (21-32) Anion Gap 11 (6-14) Blood Urea Nitrogen 14 mg/dL (7-20) Creatinine 0.8 mg/dL (0.6-1.0) Estimated GFR (Cockcroft-Gault) 74.7 BUN/Creatinine Ratio 18 (6-20) Glucose Level 86 mg/dL (70-99) Calcium Level 6.4 mg/dL (8.5-10.1) Total Bilirubin 0.5 mg/dL (0.2-1.0) Aspartate Amino Transf (AST/SGOT) 51 U/L (15-37) Alanine Aminotransferase (ALT/SGPT) 24 U/L (14-59) Alkaline Phosphatase 48 U/L (46-116) Total Protein 5.3 g/dL (6.4-8.2) Albumin 2.2 g/dL (3.4-5.0) Albumin/Globulin Ratio 0.7 (1.0-1.7) Microbiology 12/16/16 Blood Culture - Preliminary, Resulted NO GROWTH AFTER 1 DAY Medications Current Medications Albuterol/ Ipratropium (Duoneb) 3 ml 1X ONCE NEB Last administered on 10:45; Start 12/16/16 at 10:45; Stop 12/16/16 at 10:46; Status DC Albuterol Sulfate (Ventolin Neb Soln) 5 mg 1X ONCE NEB Last administered on 10:45; Start 12/16/16 at 10:45; Stop 12/16/16 at 10:46; Status DC Methylprednisolone Sodium Succinate (SOLU-Medrol 125MG VIAL) 125 mg 1X ONCE IV Last administered on 12/16/16 10:41; Start 12/16/16 at 10:45; Stop 12/16/16 at 10:46; Status DC Sodium Chloride 1,000 ml @ 1,500 mls/hr Q40M IV Last administered on 10:53; Start 12/16/16 at 11:00; Stop 12/16/16 at 11:59; Status DC Levofloxacin/ Dextrose (Levaquin Per Pharmacy) 1 each PRN DAILY PRN MC SEE COMMENTS; Start 12/16/16 at 11:30 Vancomycin HCl (Vanco Per Pharmacy) 1 each PRN DAILY PRN MC SEE COMMENTS Last administered on 12/17/16 12:44; Start 12/16/16 at 11:30 Piperacillin Sod/ Tazobactam Sod (Zosyn Per Pharmacy) 1 each PRN DAILY PRN MC SEE COMMENTS; Start 12/16/16 at 11:30 Levofloxacin/ Dextrose 150 ml @ 100 mls/hr Q24H IV Last administered on 16:23; Start 12/16/16 at 13:00 Vancomycin HCl 1.25 gm/Sodium Chloride 250 ml @ 166.667 mls/hr 1X ONCE IV Last administered on 12/16/16 12:13; Start 12/16/16 at 11:30; Stop 12/16/16 at 12:59; Status DC Piperacillin Sod/ Tazobactam Sod 3.375 gm/Sodium Chloride 50 ml @ 100 mls/hr Q6HRS IV Last administered on 12/17/16 11:52; Start 12/16/16 at 12:00 Ondansetron HCl (Zofran) 4 mg PRN Q8HRS PRN IV NAUSEA/VOMITING; Start 12/16/16 at 12:15; Stop 12/17/16 at 12:14; Status DC Fentanyl Citrate (Fentanyl 2ml Vial) 50 mcg PRN Q2HR PRN IV PAIN Last administered on 12/17/16 06:28; Start 12/16/16 at 12:15; Stop 12/17/16 at 12:14 ; Status DC Acetaminophen (Tylenol) 650 mg PRN Q4HRS PRN PO FEVER; Start 12/16/16 at 12:15 ; Stop 12/17/16 at 12:14; Status DC Albuterol/ Ipratropium (Duoneb) 3 ml RTQID NEB ; Start 12/16/16 at 16:00; Stop 12/16/16 at 16:00; Status DC Prednisone (Prednisone) 40 mg DAILY PO Last administered on 12/17/16 09:05; Start 12/17/16 at 09:00 Albuterol/ Ipratropium (Duoneb) 3 ml Q4HRS W/A NEB Last administered on 11:33; Start 12/16/16 at 14:00 Budesonide (Pulmicort) 0.5 mg RTBID NEB Last administered on 12/17/16 07:53; Start 12/16/16 at 20:00 Budesonide (Pulmicort) 0.5 mg 1X ONCE NEB Last administered on 12/16/16 16:05 ; Start 12/16/16 at 13:00; Stop 12/16/16 at 13:01; Status DC Ketorolac Tromethamine (Toradol) 30 mg 1X ONCE IV Last administered on 15:13; Start 12/16/16 at 14:00; Stop 12/16/16 at 14:01; Status DC Ketorolac Tromethamine (Toradol) 15 mg PRN Q6HRS PRN IV PAIN Last administered on 12/17/16 09:09; Start 12/16/16 at 15:00; Stop 12/21/16 at 14:59 Iohexol (Omnipaque 300 Mg/ml) 75 ml 1X ONCE IV Last administered on 12/16/16 14:48; Start 12/16/16 at 14:15; Stop 12/16/16 at 14:16; Status DC Info (Do NOT chart on this entry -- for MONITORING) 1 each PRN DAILY PRN MC SEE COMMENTS; Start 12/16/16 at 14:15; Stop 12/18/16 at 14:14 Guaifenesin (Robitussin) 200 mg PRN Q4HRS PRN PO COUGH Last administered on 14:26; Start 12/16/16 at 14:30 Vancomycin HCl 750 mg/Sodium Chloride 250 ml @ 250 mls/hr Q12H IV Last administered on 12/17/16 13:35; Start 12/17/16 at 00:00 Vancomycin HCl 1 each 1X ONCE MC ; Start 12/17/16 at 23:30; Stop 12/17/16 at 23 :31 Alprazolam (Xanax) 1 mg PRN BID PRN PO ANXIETY / AGITATION Last administered on 12/17/16 09:05; Start 12/16/16 at 18:15 Benzonatate (Tessalon Perle) 100 mg TID PO Last administered on 12/17/16 09:06 ; Start 12/16/16 at 21:00 Levothyroxine Sodium (Synthroid) 100 mcg DAILY07 PO Last administered on 06:29; Start 12/17/16 at 07:00 Guaifenesin/ Codeine Phosphate (Robitussin Ac) 5 ml PRN Q6HRS PRN PO COUGH Last administered on 12/17/16 09:06; Start 12/16/16 at 18:30 Diphenhydramine HCl (Benadryl) 50 mg 1X ONCE PO Last administered on 00:09; Start 12/17/16 at 00:15; Stop 12/17/16 at 00:16; Status DC Furosemide (Lasix) 40 mg 1X ONCE IVP Last administered on 12/17/16 13:34; Start 12/17/16 at 12:30; Stop 12/17/16 at 12:31; Status DC Calcium Gluconate 1000 mg/Sodium Chloride 110 ml @ 220 mls/hr 1X ONCE IV Last administered on 12/17/16 12:33; Start 12/17/16 at 12:30; Stop 12/17/16 at 12:59; Status DC Fentanyl Citrate (Fentanyl 2ml Vial) 75 mcg PRN Q2HR PRN IV pain Last administered on 12/17/16 13:43; Start 12/17/16 at 13:15 Active Scripts Active Tessalon Perle (Benzonatate) 100 Mg Capsule 1 Cap PO TID Oxycodone-Acetaminophen 5-325 (Oxycodone Hcl/Acetaminophen) 1 Each Tablet 1 Each PO PRN Q6HRS PRN Combivent Respimat Inhal (Ipratropium/Albuterol Sulfate) 4 Gm Aer.w.adap 1 Inh IH QID PRN Doxycycline Hyclate 100 Mg Capsule 1 Cap PO BID [guaiFENesin/CODEINE 100mg/10mg] 5 ML Liquid 5 Ml PO PRN Q6HRS PRN Prednisone 10 Mg Tablet 10 Mg PO UD Take 4 tablets by mouth daily for 3 days, then take 2 tablets by mouth daily for 3 days, then take 1 tablet by mouth daily for 3 days, then stop. Alprazolam 1 Mg Tablet 1 Tab PO PRN BID PRN Levothyroxine Sodium 100 Mcg Tablet 1 Tab PO DAILY Ibuprofen 200 Mg Tablet 200 Mg PO PRN Q6HRS PRN Reported Acetaminophen Pm Caplet (Acetaminophen/Diphenhydramine) 1 Each Tablet 2 Each PO HS Vitals/I & O Vital Sign - Last 24 Hours 12/16/16 12/16/16 12/16/16 12/16/16 15:00 16:10 17:32 19:00 Temp 98.2 98.1 98.2 98.1 Pulse 99 99 Resp 18 20 B/P (MAP) 157/78 (104) 145/83 (103) Pulse Ox 93 90 O2 Delivery Venturi Mask NonRebreather Mask Nasal Cannula Nasal Cannula O2 Flow Rate 5.0 6.0 5.0 5.0 12/16/16 12/16/16 12/16/16 12/16/16 19:37 19:40 19:54 20:00 Resp 18 Pulse Ox 92 92 92 O2 Delivery Nasal Cannula Venturi Mask Nasal Cannula Nasal Cannula O2 Flow Rate 6.0 9.0 6.0 9.0 12/16/16 12/16/16 12/16/16 12/17/16 22:48 22:56 23:18 02:53 Temp 97.9 97.9 97.9 97.9 Pulse 51 69 Resp 20 20 20 20 B/P (MAP) 148/76 (100) 122/70 (87) Pulse Ox 92 91 91 88 O2 Delivery Nasal Cannula Venturi Mask Nasal Cannula Venturi Mask O2 Flow Rate 10.0 9.0 9.0 9.0 12/17/16 12/17/16 12/17/16 12/17/16 06:28 07:00 07:55 08:00 Temp 98.1 98.1 Pulse 56 Resp 18 18 B/P (MAP) 140/85 (103) Pulse Ox 88 92 93 93 O2 Delivery Nasal Cannula Venturi Mask Venturi Mask Venturi Mask O2 Flow Rate 9.0 9.0 9.0 9.0 12/17/16 12/17/16 12/17/16 12/17/16 08:00 10:59 11:34 13:43 Temp 98.1 98.1 Pulse 60 Resp 17 B/P (MAP) 142/77 (98) Pulse Ox 90 O2 Delivery Nasal Cannula Venturi Mask Venturi Mask Venturi Mask O2 Flow Rate 9.0 9.0 9.0 35.0 Intake and Output 12/16/16 12/16/16 12/17/16 15:00 23:00 07:00 Intake Total 1000 ml 300 ml Output Total 2 ml Balance 1000 ml 298 ml JACQUES BURK MD Dec 17, 2016 13:56
[2016-12-17 15:04] VITALS: BP 128/78
[2016-12-17] MEDS: CALCIUM CARB/VIT D3 500/200 TABLET. PO SCH (17:11)
[2016-12-17 19:00] VITALS: BP 121/75
[2016-12-17] MEDS: KETOROLAC 15 MG/ML VIAL. IV SCH (20:32)
[2016-12-17] MEDS ORDERED: KETOROLAC 15 MG/ML VIAL. IV SCH (22:00)
[2016-12-17 23:00] VITALS: BP 159/87
[2016-12-17] MEDS: ZOLPIDEM 5 MG TABLET. PO PRN (23:04)
[2016-12-18] MEDS: VANCOMYCIN 750 MG in IV NORMAL SALINE 250ML 250 ML IV SCH ×2
[2016-12-18] MEDS: VANCOMYCIN PER PHARMACY MC PRN ×2 (00:39→15:14)
[2016-12-18] MEDS: VANCOMYCIN 1 GM in IV NORMAL SALINE 250ML 250 ML IV SCH ×2 (00:44→13:00)
[2016-12-18] MEDS: KETOROLAC 15 MG/ML VIAL. IV PRN (00:45)
[2016-12-18] MEDS: HYDROcodone/APAP 7.5/325MG 1 TAB TABLET PO PRN ×5 (01:28→20:26)
[2016-12-18] MEDS: LEVOTHYROXINE 100 MCG TABLET PO SCH (05:29)
[2016-12-18] MEDS: PIPERACILLIN/TAZOBACTAM 3.375 GM in IV NORMAL SALINE 50ML 50 ML IV SCH ×4 (05:29→21:34)
[2016-12-18] MEDS: KETOROLAC 15 MG/ML VIAL. IV SCH ×3 (05:29→20:27)
[2016-12-18 06:52] LABS: BASO % 0 % (0-3); EOS % 0 % (0-3); HEMATOCRIT 37.4 % (36.0-47.0); HEMOGLOBIN 12.5 g/dL (12.0-15.5); LYMPH # 2.8 x10^3/uL (1.0-4.8); LYMPH % 25 % (24-48); MEAN CORPUSCULAR HEMOGLOBIN 31 pg (25-35); MEAN CORPUSCULAR HGB CONC 33 g/dL (31-37); MEAN CORPUSCULAR VOLUME 92 fL (79-100); MONO % 8 % (0-9); NEUT % 67 % (31-73); PLATELET COUNT 393 x10^3/uL (140-400); RED BLOOD COUNT 4.05 x10^6/uL (3.50-5.40); RED CELL DISTRIBUTION WIDTH 14.5 % (11.5-14.5); WHITE BLOOD COUNT 11.3 x10^3/uL (4.0-11.0)
[2016-12-18 07:00] VITALS: BP 125/72
[2016-12-18] MEDS: IPRATRPIUM/ALBUTEROL 0.5/2.5MG 3 ML NEBU. NEB SCH ×5 (07:11→22:00)
[2016-12-18] MEDS: BUDESONIDE 0.5 MG/2 ML NEBU. NEB SCH ×2 (07:11→19:14)
[2016-12-18 07:14] LABS: ALBUMIN 2.2 g/dL (3.4-5.0); ALBUMIN/GLOBULIN RATIO 0.6 (1.0-1.7); CALCIUM 6.7 mg/dL (8.5-10.1); GFR 57.8; TOTAL BILIRUBIN 0.5 mg/dL (0.2-1.0); TOTAL PROTEIN 5.8 g/dL (6.4-8.2)
[2016-12-18] MEDS: predniSONE 20 MG TABLET PO SCH (09:10)
[2016-12-18] MEDS: BENZONATATE 100 MG CAPSULE. PO SCH ×3 (09:10→20:25)
[2016-12-18] MEDS: CALCIUM CARB/VIT D3 500/200 TABLET. PO SCH ×2 (09:10→16:58)
[2016-12-18] MEDS: POTASSIUM CHLORIDE 20 MEQ TABLET.ER. PO SCH ×2 (09:10→11:49)
[2016-12-18] MEDS: ALPRAZolam 1 MG TABLET PO PRN ×2 (09:16→20:25)
[2016-12-18 11:00] VITALS: BP 129/78
--- NOTE | 2016-12-18 12:53 | PDOC ---
PROGRESS NOTES Chief Complaint Chief Complaint CC: SOB Acute hypoxic respiratory failure Pneumonia, now abx have broadened Sepsis Chest pain, pleuritic, req. IV pain meds Tobaccoism, Mod/severe malnutrition History of Present Illness History of Present Illness 56 y/o with CC of SOB. Patient was found in mild distress laying supine on bed Pt was receiving Venti mask tx Vitals Vitals Vital Signs Date Time Temp Pulse Resp B/P (MAP) Pulse Ox O2 Delivery O2 Flow Rate FiO2 12/18/16 11:17 92 Venturi Mask 9.0 12/18/16 11:00 98.1 72 19 129/78 (95) 98.1 Physical Exam General: Alert, Oriented X3, Cooperative, moderate distress Heart: Regular rate (SR), Normal S1, Normal S2, Other (4/6 systolic murmur to LLS border) Lungs: Wheezing, Crackles Abdomen: Normal bowel sounds, Soft Extremities: No cyanosis, Other (1+ bilateral LE pitting edema) Skin: No breakdown, No significant lesion Labs LABS Laboratory Tests Test 12/17/16 14:10 12/17/16 22:18 12/18/16 06:35 Clostridium difficile Toxin (PCR) Positive (Negative) Vancomycin Level Trough 14.2 mcg/mL (10.0-20.0) Vancomycin Last Dose Date 12/17/16 Vancomycin Last Dose Time 1200 White Blood Count 11.3 x10^3/uL (4.0-11.0) Red Blood Count 4.05 x10^6/uL (3.50-5.40) Hemoglobin 12.5 g/dL (12.0-15.5) Hematocrit 37.4 % (36.0-47.0) Mean Corpuscular Volume 92 fL (79-100) Mean Corpuscular Hemoglobin 31 pg (25-35) Mean Corpuscular Hemoglobin Concent 33 g/dL (31-37) Red Cell Distribution Width 14.5 % (11.5-14.5) Platelet Count 393 x10^3/uL (140-400) Neutrophils (%) (Auto) 67 % (31-73) Lymphocytes (%) (Auto) 25 % (24-48) Monocytes (%) (Auto) 8 % (0-9) Eosinophils (%) (Auto) 0 % (0-3) Basophils (%) (Auto) 0 % (0-3) Neutrophils # (Auto) 7.5 x10^3uL (1.8-7.7) Lymphocytes # (Auto) 2.8 x10^3/uL (1.0-4.8) Monocytes # (Auto) 0.9 x10^3/uL (0.0-1.1) Eosinophils # (Auto) 0.0 x10^3/uL (0.0-0.7) Basophils # (Auto) 0.0 x10^3/uL (0.0-0.2) Sodium Level 142 mmol/L (136-145) Potassium Level 3.0 mmol/L (3.5-5.1) Chloride Level 103 mmol/L (98-107) Carbon Dioxide Level 30 mmol/L (21-32) Anion Gap 9 (6-14) Blood Urea Nitrogen 18 mg/dL (7-20) Creatinine 1.0 mg/dL (0.6-1.0) Estimated GFR (Cockcroft-Gault) 57.8 BUN/Creatinine Ratio 18 (6-20) Glucose Level 95 mg/dL (70-99) Calcium Level 6.7 mg/dL (8.5-10.1) Ionized Calcium 0.92 mmol/L (1.13-1.32) Magnesium Level 1.9 mg/dL (1.8-2.4) Total Bilirubin 0.5 mg/dL (0.2-1.0) Aspartate Amino Transf (AST/SGOT) 41 U/L (15-37) Alanine Aminotransferase (ALT/SGPT) 29 U/L (14-59) Alkaline Phosphatase 47 U/L (46-116) Total Protein 5.8 g/dL (6.4-8.2) Albumin 2.2 g/dL (3.4-5.0) Albumin/Globulin Ratio 0.6 (1.0-1.7) Review of Systems Review of Systems complained of mild weakness mild difficult breathing Assessment and Plan Assessmemt and Plan Problems Medical Problems: (1) COPD exacerbation Status: Acute (2) Elevated brain natriuretic peptide (BNP) level Status: Acute (3) Hypoxia Status: Acute (4) Leukocytosis Status: Acute (5) Sepsis Status: Acute PLAN -Cardiac monitoring -O2 -Nebs -continue antibiotics -increase anxiety medication dosage -monitor WBC -discussed smoking cessation (from 6 cigarettes/day to 3 cigarettes/day for now) -Will follow closely Home meds 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 Labs Laboratory Tests Test 12/17/16 06:55 12/17/16 14:10 12/17/16 22:18 12/18/16 06:35 White Blood Count 10.1 x10^3/uL (4.0-11.0) 11.3 x10^3/uL (4.0-11.0) Red Blood Count 3.58 x10^6/uL (3.50-5.40) 4.05 x10^6/uL (3.50-5.40) Hemoglobin 11.2 g/dL (12.0-15.5) 12.5 g/dL (12.0-15.5) Hematocrit 33.8 % (36.0-47.0) 37.4 % (36.0-47.0) Mean Corpuscular Volume 94 fL (79-100) 92 fL (79-100) Mean Corpuscular Hemoglobin 31 pg (25-35) 31 pg (25-35) Mean Corpuscular Hemoglobin Concent 33 g/dL (31-37) 33 g/dL (31-37) Red Cell Distribution Width 15.2 % (11.5-14.5) 14.5 % (11.5-14.5) Platelet Count 280 x10^3/uL (140-400) 393 x10^3/uL (140-400) Neutrophils (%) (Auto) 75 % (31-73) 67 % (31-73) Lymphocytes (%) (Auto) 17 % (24-48) 25 % (24-48) Monocytes (%) (Auto) 9 % (0-9) 8 % (0-9) Eosinophils (%) (Auto) 0 % (0-3) 0 % (0-3) Basophils (%) (Auto) 0 % (0-3) 0 % (0-3) Neutrophils # (Auto) 7.5 x10^3uL (1.8-7.7) 7.5 x10^3uL (1.8-7.7) Lymphocytes # (Auto) 1.7 x10^3/uL (1.0-4.8) 2.8 x10^3/uL (1.0-4.8) Monocytes # (Auto) 0.9 x10^3/uL (0.0-1.1) 0.9 x10^3/uL (0.0-1.1) Eosinophils # (Auto) 0.0 x10^3/uL (0.0-0.7) 0.0 x10^3/uL (0.0-0.7) Basophils # (Auto) 0.0 x10^3/uL (0.0-0.2) 0.0 x10^3/uL (0.0-0.2) Sodium Level 141 mmol/L (136-145) 142 mmol/L (136-145) Potassium Level 4.3 mmol/L (3.5-5.1) 3.0 mmol/L (3.5-5.1) Chloride Level 104 mmol/L (98-107) 103 mmol/L (98-107) Carbon Dioxide Level 26 mmol/L (21-32) 30 mmol/L (21-32) Anion Gap 11 (6-14) 9 (6-14) Blood Urea Nitrogen 14 mg/dL (7-20) 18 mg/dL (7-20) Creatinine 0.8 mg/dL (0.6-1.0) 1.0 mg/dL (0.6-1.0) Estimated GFR (Cockcroft-Gault) 74.7 57.8 BUN/Creatinine Ratio 18 (6-20) 18 (6-20) Glucose Level 86 mg/dL (70-99) 95 mg/dL (70-99) Calcium Level 6.4 mg/dL (8.5-10.1) 6.7 mg/dL (8.5-10.1) Total Bilirubin 0.5 mg/dL (0.2-1.0) 0.5 mg/dL (0.2-1.0) Aspartate Amino Transf (AST/SGOT) 51 U/L (15-37) 41 U/L (15-37) Alanine Aminotransferase (ALT/SGPT) 24 U/L (14-59) 29 U/L (14-59) Alkaline Phosphatase 48 U/L (46-116) 47 U/L (46-116) Total Protein 5.3 g/dL (6.4-8.2) 5.8 g/dL (6.4-8.2) Albumin 2.2 g/dL (3.4-5.0) 2.2 g/dL (3.4-5.0) Albumin/Globulin Ratio 0.7 (1.0-1.7) 0.6 (1.0-1.7) Clostridium difficile Toxin (PCR) Positive (Negative) Vancomycin Level Trough 14.2 mcg/mL (10.0-20.0) Vancomycin Last Dose Date 12/17/16 Vancomycin Last Dose Time 1200 Ionized Calcium 0.92 mmol/L (1.13-1.32) Magnesium Level 1.9 mg/dL (1.8-2.4) Laboratory Tests Test 12/17/16 14:10 12/17/16 22:18 12/18/16 06:35 Clostridium difficile Toxin (PCR) Positive (Negative) Vancomycin Level Trough 14.2 mcg/mL (10.0-20.0) Vancomycin Last Dose Date 12/17/16 Vancomycin Last Dose Time 1200 White Blood Count 11.3 x10^3/uL (4.0-11.0) Red Blood Count 4.05 x10^6/uL (3.50-5.40) Hemoglobin 12.5 g/dL (12.0-15.5) Hematocrit 37.4 % (36.0-47.0) Mean Corpuscular Volume 92 fL (79-100) Mean Corpuscular Hemoglobin 31 pg (25-35) Mean Corpuscular Hemoglobin Concent 33 g/dL (31-37) Red Cell Distribution Width 14.5 % (11.5-14.5) Platelet Count 393 x10^3/uL (140-400) Neutrophils (%) (Auto) 67 % (31-73) Lymphocytes (%) (Auto) 25 % (24-48) Monocytes (%) (Auto) 8 % (0-9) Eosinophils (%) (Auto) 0 % (0-3) Basophils (%) (Auto) 0 % (0-3) Neutrophils # (Auto) 7.5 x10^3uL (1.8-7.7) Lymphocytes # (Auto) 2.8 x10^3/uL (1.0-4.8) Monocytes # (Auto) 0.9 x10^3/uL (0.0-1.1) Eosinophils # (Auto) 0.0 x10^3/uL (0.0-0.7) Basophils # (Auto) 0.0 x10^3/uL (0.0-0.2) Sodium Level 142 mmol/L (136-145) Potassium Level 3.0 mmol/L (3.5-5.1) Chloride Level 103 mmol/L (98-107) Carbon Dioxide Level 30 mmol/L (21-32) Anion Gap 9 (6-14) Blood Urea Nitrogen 18 mg/dL (7-20) Creatinine 1.0 mg/dL (0.6-1.0) Estimated GFR (Cockcroft-Gault) 57.8 BUN/Creatinine Ratio 18 (6-20) Glucose Level 95 mg/dL (70-99) Calcium Level 6.7 mg/dL (8.5-10.1) Ionized Calcium 0.92 mmol/L (1.13-1.32) Magnesium Level 1.9 mg/dL (1.8-2.4) Total Bilirubin 0.5 mg/dL (0.2-1.0) Aspartate Amino Transf (AST/SGOT) 41 U/L (15-37) Alanine Aminotransferase (ALT/SGPT) 29 U/L (14-59) Alkaline Phosphatase 47 U/L (46-116) Total Protein 5.8 g/dL (6.4-8.2) Albumin 2.2 g/dL (3.4-5.0) Albumin/Globulin Ratio 0.6 (1.0-1.7) Microbiology 12/16/16 Blood Culture - Preliminary, Resulted NO GROWTH AFTER 2 DAYS Medications Current Medications Albuterol/ Ipratropium (Duoneb) 3 ml 1X ONCE NEB Last administered on t 10:45; Start 12/16/16 at 10:45; Stop 12/16/16 at 10:46; Status DC Albuterol Sulfate (Ventolin Neb Soln) 5 mg 1X ONCE NEB Last administered on t 10:45; Start 12/16/16 at 10:45; Stop 12/16/16 at 10:46; Status DC Methylprednisolone Sodium Succinate (SOLU-Medrol 125MG VIAL) 125 mg 1X ONCE IV Last administered on 12/16/16 10:41; Start 12/16/16 at 10:45; Stop 12/16/16 at 10:46; Status DC Sodium Chloride 1,000 ml @ 1,500 mls/hr Q40M IV Last administered on 10:53; Start 12/16/16 at 11:00; Stop 12/16/16 at 11:59; Status DC Levofloxacin/ Dextrose (Levaquin Per Pharmacy) 1 each PRN DAILY PRN MC SEE COMMENTS; Start 12/16/16 at 11:30 Vancomycin HCl (Vanco Per Pharmacy) 1 each PRN DAILY PRN MC SEE COMMENTS Last administered on 12/18/16 00:39; Start 12/16/16 at 11:30 Piperacillin Sod/ Tazobactam Sod (Zosyn Per Pharmacy) 1 each PRN DAILY PRN MC SEE COMMENTS; Start 12/16/16 at 11:30 Levofloxacin/ Dextrose 150 ml @ 100 mls/hr Q24H IV Last administered on 14:47; Start 12/16/16 at 13:00 Vancomycin HCl 1.25 gm/Sodium Chloride 250 ml @ 166.667 mls/hr 1X ONCE IV Last administered on 12/16/16 12:13; Start 12/16/16 at 11:30; Stop 12/16/16 at 12:59; Status DC Piperacillin Sod/ Tazobactam Sod 3.375 gm/Sodium Chloride 50 ml @ 100 mls/hr Q6HRS IV Last administered on 12/18/16 11:50; Start 12/16/16 at 12:00 Ondansetron HCl (Zofran) 4 mg PRN Q8HRS PRN IV NAUSEA/VOMITING; Start 12/16/16 at 12:15; Stop 12/17/16 at 12:14; Status DC Fentanyl Citrate (Fentanyl 2ml Vial) 50 mcg PRN Q2HR PRN IV PAIN Last administered on 12/17/16 06:28; Start 12/16/16 at 12:15; Stop 12/17/16 at 12:14 ; Status DC Acetaminophen (Tylenol) 650 mg PRN Q4HRS PRN PO FEVER; Start 12/16/16 at 12:15 ; Stop 12/17/16 at 12:14; Status DC Albuterol/ Ipratropium (Duoneb) 3 ml RTQID NEB ; Start 12/16/16 at 16:00; Stop 12/16/16 at 16:00; Status DC Prednisone (Prednisone) 40 mg DAILY PO Last administered on 12/18/16 09:10; Start 12/17/16 at 09:00 Albuterol/ Ipratropium (Duoneb) 3 ml Q4HRS W/A NEB Last administered on 11:17; Start 12/16/16 at 14:00 Budesonide (Pulmicort) 0.5 mg RTBID NEB Last administered on 12/18/16 07:11; Start 12/16/16 at 20:00 Budesonide (Pulmicort) 0.5 mg 1X ONCE NEB Last administered on 12/16/16 16:05 ; Start 12/16/16 at 13:00; Stop 12/16/16 at 13:01; Status DC Ketorolac Tromethamine (Toradol) 30 mg 1X ONCE IV Last administered on 15:13; Start 12/16/16 at 14:00; Stop 12/16/16 at 14:01; Status DC Ketorolac Tromethamine (Toradol) 15 mg PRN Q6HRS PRN IV PAIN Last administered on 12/18/16 00:45; Start 12/16/16 at 15:00; Stop 12/21/16 at 14:59 Iohexol (Omnipaque 300 Mg/ml) 75 ml 1X ONCE IV Last administered on 12/16/16 14:48; Start 12/16/16 at 14:15; Stop 12/16/16 at 14:16; Status DC Info (Do NOT chart on this entry -- for MONITORING) 1 each PRN DAILY PRN MC SEE COMMENTS; Start 12/16/16 at 14:15; Stop 12/18/16 at 14:14 Guaifenesin (Robitussin) 200 mg PRN Q4HRS PRN PO COUGH Last administered on 14:26; Start 12/16/16 at 14:30 Vancomycin HCl 750 mg/Sodium Chloride 250 ml @ 250 mls/hr Q12H IV Last administered on 12/17/16 13:35; Start 12/17/16 at 00:00; Stop 12/18/16 at 00:11 ; Status DC Vancomycin HCl 1 each 1X ONCE MC Last administered on 12/17/16 23:30; Start 12/17/16 at 23:30; Stop 12/17/16 at 23:31; Status DC Alprazolam (Xanax) 1 mg PRN BID PRN PO ANXIETY / AGITATION Last administered on 12/18/16 09:16; Start 12/16/16 at 18:15 Benzonatate (Tessalon Perle) 100 mg TID PO Last administered on 12/18/16 09:10 ; Start 12/16/16 at 21:00 Levothyroxine Sodium (Synthroid) 100 mcg DAILY07 PO Last administered on 05:29; Start 12/17/16 at 07:00 Guaifenesin/ Codeine Phosphate (Robitussin Ac) 5 ml PRN Q6HRS PRN PO COUGH Last administered on 12/17/16 09:06; Start 12/16/16 at 18:30 Diphenhydramine HCl (Benadryl) 50 mg 1X ONCE PO Last administered on 00:09; Start 12/17/16 at 00:15; Stop 12/17/16 at 00:16; Status DC Furosemide (Lasix) 40 mg 1X ONCE IVP Last administered on 12/17/16 13:34; Start 12/17/16 at 12:30; Stop 12/17/16 at 12:31; Status DC Calcium Gluconate 1000 mg/Sodium Chloride 110 ml @ 220 mls/hr 1X ONCE IV Last administered on 12/17/16 12:33; Start 12/17/16 at 12:30; Stop 12/17/16 at 12:59; Status DC Fentanyl Citrate (Fentanyl 2ml Vial) 75 mcg PRN Q2HR PRN IV pain Last administered on 12/17/16 13:43; Start 12/17/16 at 13:15 Calcium Gluconate 1000 mg/Sodium Chloride 110 ml @ 220 mls/hr 1X ONCE IV ; Start 12/17/16 at 15:00; Stop 12/17/16 at 15:29; Status DC Calcium/Vitamin D (Oscal D 500mg/ 200uts) 1 tab BIDWMEALS PO Last administered on 12/18/16 09:10; Start 12/17/16 at 17:00 Ketorolac Tromethamine (Toradol) 15 mg Q8HRS IV ; Start 12/17/16 at 22:00; Stop 12/22/16 at 21:59; Status Cancel Ketorolac Tromethamine (Toradol) 15 mg Q8HRS IV Last administered on 12/18/16 05:29; Start 12/17/16 at 21:00; Stop 12/22/16 at 20:59 Zolpidem Tartrate (Ambien) 5 mg PRN QHS PRN PO INSOMNIA Last administered on 23:04; Start 12/17/16 at 22:45 Vancomycin HCl 1 gm/Sodium Chloride 250 ml @ 250 mls/hr Q12H IV Last administered on 12/18/16 00:44; Start 12/18/16 at 00:30 Vancomycin HCl 1 each 1X ONCE MC ; Start 12/19/16 at 12:00; Stop 12/19/16 at 12 :01 Acetaminophen/ Hydrocodone Bitart (Lortab 7.5/325) 1 tab PRN Q4HRS PRN PO PAIN Last administered on 12/18/16 09:11; Start 12/18/16 at 01:30 Potassium Chloride (Klor-Con) 40 meq Q4HRS PO Last administered on 12/18/16 11 :49; Start 12/18/16 at 09:00; Stop 12/18/16 at 12:01; Status DC Active Scripts Active Tessalon Perle (Benzonatate) 100 Mg Capsule 1 Cap PO TID Oxycodone-Acetaminophen 5-325 (Oxycodone Hcl/Acetaminophen) 1 Each Tablet 1 Each PO PRN Q6HRS PRN Combivent Respimat Inhal (Ipratropium/Albuterol Sulfate) 4 Gm Aer.w.adap 1 Inh IH QID PRN Doxycycline Hyclate 100 Mg Capsule 1 Cap PO BID [guaiFENesin/CODEINE 100mg/10mg] 5 ML Liquid 5 Ml PO PRN Q6HRS PRN Prednisone 10 Mg Tablet 10 Mg PO UD Take 4 tablets by mouth daily for 3 days, then take 2 tablets by mouth daily for 3 days, then take 1 tablet by mouth daily for 3 days, then stop. Alprazolam 1 Mg Tablet 1 Tab PO PRN BID PRN Levothyroxine Sodium 100 Mcg Tablet 1 Tab PO DAILY Ibuprofen 200 Mg Tablet 200 Mg PO PRN Q6HRS PRN Reported Acetaminophen Pm Caplet (Acetaminophen/Diphenhydramine) 1 Each Tablet 2 Each PO HS Vitals/I & O Vital Sign - Last 24 Hours 12/17/16 12/17/16 12/17/16 12/17/16 13:43 14:13 15:04 15:26 Temp 98.5 98.5 Pulse 73 Resp 18 B/P (MAP) 128/78 (95) Pulse Ox 90 O2 Delivery Venturi Mask Room Air Venturi Mask Venturi Mask O2 Flow Rate 35.0 9.0 9.0 12/17/16 12/17/16 12/17/16 12/17/16 19:00 19:32 20:24 20:26 Temp 97.5 97.5 Pulse 77 Resp 18 B/P (MAP) 121/75 (90) Pulse Ox 90 95 95 O2 Delivery Venturi Mask Nasal Cannula Venturi Mask Venturi Mask O2 Flow Rate 9.0 9.0 9.0 9.0 12/17/16 12/18/16 12/18/16 12/18/16 23:00 01:28 05:29 06:40 Temp 97.8 97.8 Pulse 87 Resp 18 18 18 18 B/P (MAP) 159/87 (111) Pulse Ox 99 99 99 O2 Delivery Venturi Mask Nasal Cannula Nasal Cannula O2 Flow Rate 9.0 9.0 9.0 12/18/16 12/18/16 12/18/16 12/18/16 07:00 07:12 08:00 09:11 Temp 98.1 98.1 Pulse 68 Resp 19 B/P (MAP) 125/72 (89) Pulse Ox 92 90 90 O2 Delivery Venturi Mask Venturi Mask Nasal Cannula Nasal Cannula O2 Flow Rate 9.0 9.0 9.0 9.0 12/18/16 12/18/16 12/18/16 10:16 11:00 11:17 Temp 98.1 98.1 Pulse 72 Resp 19 B/P (MAP) 129/78 (95) Pulse Ox 90 93 92 O2 Delivery Nasal Cannula Venturi Mask Venturi Mask O2 Flow Rate 9.0 9.0 9.0 Intake and Output 12/17/16 12/17/16 12/18/16 15:00 23:00 07:00 Intake Total 480 ml 250 ml Output Total 802 ml Balance -322 ml 250 ml JUDY HOLT III DO Dec 18, 2016 12:53
--- NOTE | 2016-12-18 13:01 | PDOC ---
PULMONARY PROGRESS NOTES Subjective has sob, occ cough, cp w deep breathing, has runny nose Vitals Vital Signs Date Time Temp Pulse Resp B/P (MAP) Pulse Ox O2 Delivery O2 Flow Rate FiO2 12/18/16 11:17 92 Venturi Mask 9.0 12/18/16 11:00 98.1 72 19 129/78 (95) 98.1 ROS: No Nausea General: Alert, Oriented X4, No acute distress HEENT: Other (nc at perrl. nose throat clear) Lungs: Wheezing, Crackles Cardiovascular: S1, S2 Abdomen: Soft, Non-tender, Other Neuro Exam: Alert Extremities: No Edema Skin: Warm Labs Laboratory Tests Test 12/17/16 06:55 12/17/16 14:10 12/17/16 22:18 12/18/16 06:35 White Blood Count 10.1 x10^3/uL (4.0-11.0) 11.3 x10^3/uL (4.0-11.0) Red Blood Count 3.58 x10^6/uL (3.50-5.40) 4.05 x10^6/uL (3.50-5.40) Hemoglobin 11.2 g/dL (12.0-15.5) 12.5 g/dL (12.0-15.5) Hematocrit 33.8 % (36.0-47.0) 37.4 % (36.0-47.0) Mean Corpuscular Volume 94 fL (79-100) 92 fL (79-100) Mean Corpuscular Hemoglobin 31 pg (25-35) 31 pg (25-35) Mean Corpuscular Hemoglobin Concent 33 g/dL (31-37) 33 g/dL (31-37) Red Cell Distribution Width 15.2 % (11.5-14.5) 14.5 % (11.5-14.5) Platelet Count 280 x10^3/uL (140-400) 393 x10^3/uL (140-400) Neutrophils (%) (Auto) 75 % (31-73) 67 % (31-73) Lymphocytes (%) (Auto) 17 % (24-48) 25 % (24-48) Monocytes (%) (Auto) 9 % (0-9) 8 % (0-9) Eosinophils (%) (Auto) 0 % (0-3) 0 % (0-3) Basophils (%) (Auto) 0 % (0-3) 0 % (0-3) Neutrophils # (Auto) 7.5 x10^3uL (1.8-7.7) 7.5 x10^3uL (1.8-7.7) Lymphocytes # (Auto) 1.7 x10^3/uL (1.0-4.8) 2.8 x10^3/uL (1.0-4.8) Monocytes # (Auto) 0.9 x10^3/uL (0.0-1.1) 0.9 x10^3/uL (0.0-1.1) Eosinophils # (Auto) 0.0 x10^3/uL (0.0-0.7) 0.0 x10^3/uL (0.0-0.7) Basophils # (Auto) 0.0 x10^3/uL (0.0-0.2) 0.0 x10^3/uL (0.0-0.2) Sodium Level 141 mmol/L (136-145) 142 mmol/L (136-145) Potassium Level 4.3 mmol/L (3.5-5.1) 3.0 mmol/L (3.5-5.1) Chloride Level 104 mmol/L (98-107) 103 mmol/L (98-107) Carbon Dioxide Level 26 mmol/L (21-32) 30 mmol/L (21-32) Anion Gap 11 (6-14) 9 (6-14) Blood Urea Nitrogen 14 mg/dL (7-20) 18 mg/dL (7-20) Creatinine 0.8 mg/dL (0.6-1.0) 1.0 mg/dL (0.6-1.0) Estimated GFR (Cockcroft-Gault) 74.7 57.8 BUN/Creatinine Ratio 18 (6-20) 18 (6-20) Glucose Level 86 mg/dL (70-99) 95 mg/dL (70-99) Calcium Level 6.4 mg/dL (8.5-10.1) 6.7 mg/dL (8.5-10.1) Total Bilirubin 0.5 mg/dL (0.2-1.0) 0.5 mg/dL (0.2-1.0) Aspartate Amino Transf (AST/SGOT) 51 U/L (15-37) 41 U/L (15-37) Alanine Aminotransferase (ALT/SGPT) 24 U/L (14-59) 29 U/L (14-59) Alkaline Phosphatase 48 U/L (46-116) 47 U/L (46-116) Total Protein 5.3 g/dL (6.4-8.2) 5.8 g/dL (6.4-8.2) Albumin 2.2 g/dL (3.4-5.0) 2.2 g/dL (3.4-5.0) Albumin/Globulin Ratio 0.7 (1.0-1.7) 0.6 (1.0-1.7) Clostridium difficile Toxin (PCR) Positive (Negative) Vancomycin Level Trough 14.2 mcg/mL (10.0-20.0) Vancomycin Last Dose Date 12/17/16 Vancomycin Last Dose Time 1200 Ionized Calcium 0.92 mmol/L (1.13-1.32) Magnesium Level 1.9 mg/dL (1.8-2.4) Laboratory Tests Test 12/17/16 14:10 12/17/16 22:18 12/18/16 06:35 Clostridium difficile Toxin (PCR) Positive (Negative) Vancomycin Level Trough 14.2 mcg/mL (10.0-20.0) Vancomycin Last Dose Date 12/17/16 Vancomycin Last Dose Time 1200 White Blood Count 11.3 x10^3/uL (4.0-11.0) Red Blood Count 4.05 x10^6/uL (3.50-5.40) Hemoglobin 12.5 g/dL (12.0-15.5) Hematocrit 37.4 % (36.0-47.0) Mean Corpuscular Volume 92 fL (79-100) Mean Corpuscular Hemoglobin 31 pg (25-35) Mean Corpuscular Hemoglobin Concent 33 g/dL (31-37) Red Cell Distribution Width 14.5 % (11.5-14.5) Platelet Count 393 x10^3/uL (140-400) Neutrophils (%) (Auto) 67 % (31-73) Lymphocytes (%) (Auto) 25 % (24-48) Monocytes (%) (Auto) 8 % (0-9) Eosinophils (%) (Auto) 0 % (0-3) Basophils (%) (Auto) 0 % (0-3) Neutrophils # (Auto) 7.5 x10^3uL (1.8-7.7) Lymphocytes # (Auto) 2.8 x10^3/uL (1.0-4.8) Monocytes # (Auto) 0.9 x10^3/uL (0.0-1.1) Eosinophils # (Auto) 0.0 x10^3/uL (0.0-0.7) Basophils # (Auto) 0.0 x10^3/uL (0.0-0.2) Sodium Level 142 mmol/L (136-145) Potassium Level 3.0 mmol/L (3.5-5.1) Chloride Level 103 mmol/L (98-107) Carbon Dioxide Level 30 mmol/L (21-32) Anion Gap 9 (6-14) Blood Urea Nitrogen 18 mg/dL (7-20) Creatinine 1.0 mg/dL (0.6-1.0) Estimated GFR (Cockcroft-Gault) 57.8 BUN/Creatinine Ratio 18 (6-20) Glucose Level 95 mg/dL (70-99) Calcium Level 6.7 mg/dL (8.5-10.1) Ionized Calcium 0.92 mmol/L (1.13-1.32) Magnesium Level 1.9 mg/dL (1.8-2.4) Total Bilirubin 0.5 mg/dL (0.2-1.0) Aspartate Amino Transf (AST/SGOT) 41 U/L (15-37) Alanine Aminotransferase (ALT/SGPT) 29 U/L (14-59) Alkaline Phosphatase 47 U/L (46-116) Total Protein 5.8 g/dL (6.4-8.2) Albumin 2.2 g/dL (3.4-5.0) Albumin/Globulin Ratio 0.6 (1.0-1.7) Medications Active Scripts Medications Dose Route/Sig Max Daily Dose Days Date Category Dose Instructions Tessalon Perle (Benzonatate) 100 Mg Capsule 1 Cap PO TID 12/15/16 Rx Oxycodone-Acetaminophen 5-325 (Oxycodone Hcl/Acetaminophen) 1 Each Tablet 1 Each PO PRN Q6HRS PRN 12/15/16 Rx Combivent Respimat Inhal (Ipratropium/Albuterol Sulfate) 4 Gm Aer.w.adap 1 Inh IH QID PRN 12/15/16 Rx Doxycycline Hyclate 100 Mg Capsule 1 Cap PO BID 12/15/16 Rx [guaiFENesin/CODEINE 100mg/10mg] 5 ML Liquid 5 Ml PO PRN Q6HRS PRN 12/15/16 Rx Prednisone 10 Mg Tablet 10 Mg PO UD 12/15/16 Rx Take 4 tablets by mouth daily for 3 days, then take 2 tablets by mouth daily for 3 days, then take 1 tablet by mouth daily for 3 days, then stop. Alprazolam 1 Mg Tablet 1 Tab PO PRN BID PRN 12/15/16 Rx Levothyroxine Sodium 100 Mcg Tablet 1 Tab PO DAILY 12/15/16 Rx Ibuprofen 200 Mg Tablet 200 Mg PO PRN Q6HRS PRN 02/24/16 Rx Acetaminophen Pm Caplet (Acetaminophen/Diphenhydramine) 1 Each Tablet 2 Each PO HS 11/11/15 Reported Impression . IMPRESSION: 1. Pxsln-nr-[id number] respiratory failure. 2. Pneumonia with pleurisy. 3. CT CHEST NO PE Plan . Continue current antibiotics. pain control nebs prednisone start lovenox, protonix for prophylaxis discussed w pt JOSELYN SIEGEL MD Dec 18, 2016 13:01
[2016-12-18 14:35] VITALS: BP 129/77
[2016-12-18] MEDS: metroNIDAZOLE 500 MG TABLET PO SCH ×2 (15:27→18:00)
[2016-12-18] MEDS: PANTOPRAZOLE 40 MG TABLET.DR. PO SCH (16:57)
[2016-12-18 19:00] VITALS: BP 132/84
[2016-12-18] MEDS: ZOLPIDEM 5 MG TABLET. PO PRN (21:33)
[2016-12-18 23:00] VITALS: BP 123/80
[2016-12-19] MEDS: metroNIDAZOLE 500 MG TABLET PO SCH ×5 (00:25→23:25)
[2016-12-19] MEDS: VANCOMYCIN 1 GM in IV NORMAL SALINE 250ML 250 ML IV SCH (00:25)
[2016-12-19] MEDS: KETOROLAC 15 MG/ML VIAL. IV PRN (00:26)
[2016-12-19] MEDS: HYDROcodone/APAP 7.5/325MG 1 TAB TABLET PO PRN ×6 (00:29→23:24)
[2016-12-19 03:00] VITALS: BP 135/89
[2016-12-19] MEDS: LEVOTHYROXINE 100 MCG TABLET PO SCH (05:20)
[2016-12-19] MEDS: KETOROLAC 15 MG/ML VIAL. IV SCH ×3 (05:21→20:46)
[2016-12-19] MEDS: PIPERACILLIN/TAZOBACTAM 3.375 GM in IV NORMAL SALINE 50ML 50 ML IV SCH ×4 (05:21→23:25)
[2016-12-19 07:00] VITALS: BP 116/73
[2016-12-19] MEDS: PANTOPRAZOLE 40 MG TABLET.DR. PO SCH (07:34)
[2016-12-19] MEDS: IPRATRPIUM/ALBUTEROL 0.5/2.5MG 3 ML NEBU. NEB SCH ×5 (07:48→19:29)
[2016-12-19] MEDS: BUDESONIDE 0.5 MG/2 ML NEBU. NEB SCH ×2 (07:48→19:30)
[2016-12-19] MEDS: VANCOMYCIN PER PHARMACY MC PRN ×2 (08:10→13:00)
[2016-12-19] MEDS: CALCIUM CARB/VIT D3 500/200 TABLET. PO SCH ×2 (08:51→17:13)
[2016-12-19] MEDS: BENZONATATE 100 MG CAPSULE. PO SCH ×3 (08:51→20:45)
[2016-12-19] MEDS: predniSONE 20 MG TABLET PO SCH (08:51)
--- NOTE | 2016-12-19 09:33 | PDOC ---
PULMONARY PROGRESS NOTES Subjective has sob, occ cough, cp improved, no runny nose Vitals Vital Signs Date Time Temp Pulse Resp B/P (MAP) Pulse Ox O2 Delivery O2 Flow Rate FiO2 12/19/16 08:20 20 NonRebreather Mask 9.0 12/19/16 07:50 93 12/19/16 03:00 97.4 80 135/89 (104) 97.4 ROS: No Nausea, No Chest Pain General: Alert, Oriented X4, No acute distress HEENT: Other (nc at perrl. nose throat clear) Lungs: Crackles Cardiovascular: S1, S2 Abdomen: Soft, Non-tender, Other Neuro Exam: Alert Extremities: No Edema Skin: Warm Labs Laboratory Tests Test 12/17/16 14:10 12/17/16 22:18 12/18/16 06:35 Clostridium difficile Toxin (PCR) Positive (Negative) Vancomycin Level Trough 14.2 mcg/mL (10.0-20.0) Vancomycin Last Dose Date 12/17/16 Vancomycin Last Dose Time 1200 White Blood Count 11.3 x10^3/uL (4.0-11.0) Red Blood Count 4.05 x10^6/uL (3.50-5.40) Hemoglobin 12.5 g/dL (12.0-15.5) Hematocrit 37.4 % (36.0-47.0) Mean Corpuscular Volume 92 fL (79-100) Mean Corpuscular Hemoglobin 31 pg (25-35) Mean Corpuscular Hemoglobin Concent 33 g/dL (31-37) Red Cell Distribution Width 14.5 % (11.5-14.5) Platelet Count 393 x10^3/uL (140-400) Neutrophils (%) (Auto) 67 % (31-73) Lymphocytes (%) (Auto) 25 % (24-48) Monocytes (%) (Auto) 8 % (0-9) Eosinophils (%) (Auto) 0 % (0-3) Basophils (%) (Auto) 0 % (0-3) Neutrophils # (Auto) 7.5 x10^3uL (1.8-7.7) Lymphocytes # (Auto) 2.8 x10^3/uL (1.0-4.8) Monocytes # (Auto) 0.9 x10^3/uL (0.0-1.1) Eosinophils # (Auto) 0.0 x10^3/uL (0.0-0.7) Basophils # (Auto) 0.0 x10^3/uL (0.0-0.2) Sodium Level 142 mmol/L (136-145) Potassium Level 3.0 mmol/L (3.5-5.1) Chloride Level 103 mmol/L (98-107) Carbon Dioxide Level 30 mmol/L (21-32) Anion Gap 9 (6-14) Blood Urea Nitrogen 18 mg/dL (7-20) Creatinine 1.0 mg/dL (0.6-1.0) Estimated GFR (Cockcroft-Gault) 57.8 BUN/Creatinine Ratio 18 (6-20) Glucose Level 95 mg/dL (70-99) Calcium Level 6.7 mg/dL (8.5-10.1) Ionized Calcium 0.92 mmol/L (1.13-1.32) Magnesium Level 1.9 mg/dL (1.8-2.4) Total Bilirubin 0.5 mg/dL (0.2-1.0) Aspartate Amino Transf (AST/SGOT) 41 U/L (15-37) Alanine Aminotransferase (ALT/SGPT) 29 U/L (14-59) Alkaline Phosphatase 47 U/L (46-116) Total Protein 5.8 g/dL (6.4-8.2) Albumin 2.2 g/dL (3.4-5.0) Albumin/Globulin Ratio 0.6 (1.0-1.7) 25-Hydroxy Vitamin D Total 9.7 ng/mL (30.0-100.0) Medications Active Scripts Medications Dose Route/Sig Max Daily Dose Days Date Category Dose Instructions Tessalon Perle (Benzonatate) 100 Mg Capsule 1 Cap PO TID 12/15/16 Rx Oxycodone-Acetaminophen 5-325 (Oxycodone Hcl/Acetaminophen) 1 Each Tablet 1 Each PO PRN Q6HRS PRN 12/15/16 Rx Combivent Respimat Inhal (Ipratropium/Albuterol Sulfate) 4 Gm Aer.w.adap 1 Inh IH QID PRN 12/15/16 Rx Doxycycline Hyclate 100 Mg Capsule 1 Cap PO BID 12/15/16 Rx [guaiFENesin/CODEINE 100mg/10mg] 5 ML Liquid 5 Ml PO PRN Q6HRS PRN 12/15/16 Rx Prednisone 10 Mg Tablet 10 Mg PO UD 12/15/16 Rx Take 4 tablets by mouth daily for 3 days, then take 2 tablets by mouth daily for 3 days, then take 1 tablet by mouth daily for 3 days, then stop. Alprazolam 1 Mg Tablet 1 Tab PO PRN BID PRN 12/15/16 Rx Levothyroxine Sodium 100 Mcg Tablet 1 Tab PO DAILY 12/15/16 Rx Ibuprofen 200 Mg Tablet 200 Mg PO PRN Q6HRS PRN 02/24/16 Rx Acetaminophen Pm Caplet (Acetaminophen/Diphenhydramine) 1 Each Tablet 2 Each PO HS 11/11/15 Reported Impression . IMPRESSION: 1. Yieze-md-efzldnw respiratory failure. 2. Pneumonia with pleurisy. 3. CT CHEST NO PE 4. c diff colitis Plan . Continue current antibiotics. pain control nebs prednisone with taper by 10 mg q 3d protonix for prophylaxis flagyl 6 min walk bf dc discussed w pt JOSELYN SIEGEL MD Dec 19, 2016 09:33
[2016-12-19 11:00] VITALS: BP 120/69
--- NOTE | 2016-12-19 13:18 | PDOC ---
PROGRESS NOTES Chief Complaint Chief Complaint SOB Acute hypoxic respiratory failure Pneumonia Sepsis Chest pain, pleuritic, req. IV pain meds Tobaccoism Mod/severe malnutrition History of Present Illness History of Present Illness 56 y/o with CC of SOB. Patient was found laying supine on bed Pt was receiving Venti mask tx. Patient appeared alert. Vitals Vitals Vital Signs Date Time Temp Pulse Resp B/P (MAP) Pulse Ox O2 Delivery O2 Flow Rate FiO2 12/19/16 11:18 92 Venturi Mask 9.0 12/19/16 10:44 18 12/19/16 03:00 97.4 80 135/89 (104) 97.4 Physical Exam General: Alert, Oriented X3, Cooperative, moderate distress Heart: Regular rate (SR), Normal S1, Normal S2, Other (4/6 systolic murmur to LLS border) Lungs: Clear, Other Abdomen: Normal bowel sounds, Soft Extremities: No cyanosis, Other (1+ bilateral LE pitting edema) Skin: No breakdown, No significant lesion Labs LABS Laboratory Tests Test 12/19/16 12:00 Vancomycin Level Trough 15.4 mcg/mL (10.0-20.0) Vancomycin Last Dose Date 12/19/16 Vancomycin Last Dose Time 0030 Review of Systems Review of Systems Complains of weakness. SOB. Weakness. Assessment and Plan Assessmemt and Plan Problems Medical Problems: (1) COPD exacerbation Status: Acute (2) Elevated brain natriuretic peptide (BNP) level Status: Acute (3) Hypoxia Status: Acute (4) Leukocytosis Status: Acute (5) Sepsis Status: Acute Assessment: SOB Acute hypoxic respiratory failure Pneumonia Sepsis Chest pain, pleuritic, req. IV pain meds Tobaccoism Mod/severe malnutrition Plan: 1. Continue oxygen therapy 2. Continue nebulizer therapy 3. Start C. diff therapy 4. Recheck labs 5. Monitor vitals 6. PT/OT Problems: Comment Review of Relevant I have reviewed the following items vasquez (where applicable) has been applied. Labs Laboratory Tests Test 12/17/16 14:10 12/17/16 22:18 12/18/16 06:35 12/19/16 12:00 Clostridium difficile Toxin (PCR) Positive (Negative) Vancomycin Level Trough 14.2 mcg/mL (10.0-20.0) 15.4 mcg/mL (10.0-20.0) Vancomycin Last Dose Date 12/17/16 12/19/16 Vancomycin Last Dose Time 1200 0030 White Blood Count 11.3 x10^3/uL (4.0-11.0) Red Blood Count 4.05 x10^6/uL (3.50-5.40) Hemoglobin 12.5 g/dL (12.0-15.5) Hematocrit 37.4 % (36.0-47.0) Mean Corpuscular Volume 92 fL (79-100) Mean Corpuscular Hemoglobin 31 pg (25-35) Mean Corpuscular Hemoglobin Concent 33 g/dL (31-37) Red Cell Distribution Width 14.5 % (11.5-14.5) Platelet Count 393 x10^3/uL (140-400) Neutrophils (%) (Auto) 67 % (31-73) Lymphocytes (%) (Auto) 25 % (24-48) Monocytes (%) (Auto) 8 % (0-9) Eosinophils (%) (Auto) 0 % (0-3) Basophils (%) (Auto) 0 % (0-3) Neutrophils # (Auto) 7.5 x10^3uL (1.8-7.7) Lymphocytes # (Auto) 2.8 x10^3/uL (1.0-4.8) Monocytes # (Auto) 0.9 x10^3/uL (0.0-1.1) Eosinophils # (Auto) 0.0 x10^3/uL (0.0-0.7) Basophils # (Auto) 0.0 x10^3/uL (0.0-0.2) Sodium Level 142 mmol/L (136-145) Potassium Level 3.0 mmol/L (3.5-5.1) Chloride Level 103 mmol/L (98-107) Carbon Dioxide Level 30 mmol/L (21-32) Anion Gap 9 (6-14) Blood Urea Nitrogen 18 mg/dL (7-20) Creatinine 1.0 mg/dL (0.6-1.0) Estimated GFR (Cockcroft-Gault) 57.8 BUN/Creatinine Ratio 18 (6-20) Glucose Level 95 mg/dL (70-99) Calcium Level 6.7 mg/dL (8.5-10.1) Ionized Calcium 0.92 mmol/L (1.13-1.32) Magnesium Level 1.9 mg/dL (1.8-2.4) Total Bilirubin 0.5 mg/dL (0.2-1.0) Aspartate Amino Transf (AST/SGOT) 41 U/L (15-37) Alanine Aminotransferase (ALT/SGPT) 29 U/L (14-59) Alkaline Phosphatase 47 U/L (46-116) Total Protein 5.8 g/dL (6.4-8.2) Albumin 2.2 g/dL (3.4-5.0) Albumin/Globulin Ratio 0.6 (1.0-1.7) 25-Hydroxy Vitamin D Total 9.7 ng/mL (30.0-100.0) Laboratory Tests Test 12/19/16 12:00 Vancomycin Level Trough 15.4 mcg/mL (10.0-20.0) Vancomycin Last Dose Date 12/19/16 Vancomycin Last Dose Time 0030 Microbiology 12/16/16 Blood Culture - Preliminary, Resulted NO GROWTH AFTER 3 DAYS Medications Current Medications Albuterol/ Ipratropium (Duoneb) 3 ml 1X ONCE NEB Last administered on 10:45; Start 12/16/16 at 10:45; Stop 12/16/16 at 10:46; Status DC Albuterol Sulfate (Ventolin Neb Soln) 5 mg 1X ONCE NEB Last administered on 10:45; Start 12/16/16 at 10:45; Stop 12/16/16 at 10:46; Status DC Methylprednisolone Sodium Succinate (SOLU-Medrol 125MG VIAL) 125 mg 1X ONCE IV Last administered on 12/16/16 10:41; Start 12/16/16 at 10:45; Stop 12/16/16 at 10:46; Status DC Sodium Chloride 1,000 ml @ 1,500 mls/hr Q40M IV Last administered on 10:53; Start 12/16/16 at 11:00; Stop 12/16/16 at 11:59; Status DC Levofloxacin/ Dextrose (Levaquin Per Pharmacy) 1 each PRN DAILY PRN MC SEE COMMENTS; Start 12/16/16 at 11:30 Vancomycin HCl (Vanco Per Pharmacy) 1 each PRN DAILY PRN MC SEE COMMENTS Last administered on 12/19/16 13:00; Start 12/16/16 at 11:30 Piperacillin Sod/ Tazobactam Sod (Zosyn Per Pharmacy) 1 each PRN DAILY PRN MC SEE COMMENTS; Start 12/16/16 at 11:30 Levofloxacin/ Dextrose 150 ml @ 100 mls/hr Q24H IV Last administered on 12:39; Start 12/16/16 at 13:00 Vancomycin HCl 1.25 gm/Sodium Chloride 250 ml @ 166.667 mls/hr 1X ONCE IV Last administered on 12/16/16 12:13; Start 12/16/16 at 11:30; Stop 12/16/16 at 12:59; Status DC Piperacillin Sod/ Tazobactam Sod 3.375 gm/Sodium Chloride 50 ml @ 100 mls/hr Q6HRS IV Last administered on 12/19/16 12:04; Start 12/16/16 at 12:00 Ondansetron HCl (Zofran) 4 mg PRN Q8HRS PRN IV NAUSEA/VOMITING; Start 12/16/16 at 12:15; Stop 12/17/16 at 12:14; Status DC Fentanyl Citrate (Fentanyl 2ml Vial) 50 mcg PRN Q2HR PRN IV PAIN Last administered on 12/17/16 06:28; Start 12/16/16 at 12:15; Stop 12/17/16 at 12:14 ; Status DC Acetaminophen (Tylenol) 650 mg PRN Q4HRS PRN PO FEVER; Start 12/16/16 at 12:15 ; Stop 12/17/16 at 12:14; Status DC Albuterol/ Ipratropium (Duoneb) 3 ml RTQID NEB ; Start 12/16/16 at 16:00; Stop 12/16/16 at 16:00; Status DC Prednisone (Prednisone) 40 mg DAILY PO Last administered on 12/19/16 08:51; Start 12/17/16 at 09:00 Albuterol/ Ipratropium (Duoneb) 3 ml Q4HRS W/A NEB Last administered on 11:18; Start 12/16/16 at 14:00 Budesonide (Pulmicort) 0.5 mg RTBID NEB Last administered on 12/19/16 07:48; Start 12/16/16 at 20:00 Budesonide (Pulmicort) 0.5 mg 1X ONCE NEB Last administered on 12/16/16 16:05 ; Start 12/16/16 at 13:00; Stop 12/16/16 at 13:01; Status DC Ketorolac Tromethamine (Toradol) 30 mg 1X ONCE IV Last administered on 15:13; Start 12/16/16 at 14:00; Stop 12/16/16 at 14:01; Status DC Ketorolac Tromethamine (Toradol) 15 mg PRN Q6HRS PRN IV PAIN Last administered on 12/19/16 00:26; Start 12/16/16 at 15:00; Stop 12/21/16 at 14:59 Iohexol (Omnipaque 300 Mg/ml) 75 ml 1X ONCE IV Last administered on 12/16/16 14:48; Start 12/16/16 at 14:15; Stop 12/16/16 at 14:16; Status DC Info (Do NOT chart on this entry -- for MONITORING) 1 each PRN DAILY PRN MC SEE COMMENTS; Start 12/16/16 at 14:15; Stop 12/18/16 at 14:14; Status DC Guaifenesin (Robitussin) 200 mg PRN Q4HRS PRN PO COUGH Last administered on 14:26; Start 12/16/16 at 14:30 Vancomycin HCl 750 mg/Sodium Chloride 250 ml @ 250 mls/hr Q12H IV Last administered on 12/17/16 13:35; Start 12/17/16 at 00:00; Stop 12/18/16 at 00:11 ; Status DC Vancomycin HCl 1 each 1X ONCE MC Last administered on 12/17/16 23:30; Start 12/17/16 at 23:30; Stop 12/17/16 at 23:31; Status DC Alprazolam (Xanax) 1 mg PRN BID PRN PO ANXIETY / AGITATION Last administered on 12/18/16 20:25; Start 12/16/16 at 18:15 Benzonatate (Tessalon Perle) 100 mg TID PO Last administered on 12/19/16 08:51 ; Start 12/16/16 at 21:00 Levothyroxine Sodium (Synthroid) 100 mcg DAILY07 PO Last administered on 05:20; Start 12/17/16 at 07:00 Guaifenesin/ Codeine Phosphate (Robitussin Ac) 5 ml PRN Q6HRS PRN PO COUGH Last administered on 12/17/16 09:06; Start 12/16/16 at 18:30 Diphenhydramine HCl (Benadryl) 50 mg 1X ONCE PO Last administered on 00:09; Start 12/17/16 at 00:15; Stop 12/17/16 at 00:16; Status DC Furosemide (Lasix) 40 mg 1X ONCE IVP Last administered on 12/17/16 13:34; Start 12/17/16 at 12:30; Stop 12/17/16 at 12:31; Status DC Calcium Gluconate 1000 mg/Sodium Chloride 110 ml @ 220 mls/hr 1X ONCE IV Last administered on 12/17/16 12:33; Start 12/17/16 at 12:30; Stop 12/17/16 at 12:59; Status DC Fentanyl Citrate (Fentanyl 2ml Vial) 75 mcg PRN Q2HR PRN IV pain Last administered on 12/17/16 13:43; Start 12/17/16 at 13:15 Calcium Gluconate 1000 mg/Sodium Chloride 110 ml @ 220 mls/hr 1X ONCE IV ; Start 12/17/16 at 15:00; Stop 12/17/16 at 15:29; Status DC Calcium/Vitamin D (Oscal D 500mg/ 200uts) 1 tab BIDWMEALS PO Last administered on 12/19/16 08:51; Start 12/17/16 at 17:00 Ketorolac Tromethamine (Toradol) 15 mg Q8HRS IV ; Start 12/17/16 at 22:00; Stop 12/22/16 at 21:59; Status Cancel Ketorolac Tromethamine (Toradol) 15 mg Q8HRS IV Last administered on 12/19/16 05:21; Start 12/17/16 at 21:00; Stop 12/22/16 at 20:59 Zolpidem Tartrate (Ambien) 5 mg PRN QHS PRN PO INSOMNIA Last administered on 21:33; Start 12/17/16 at 22:45 Vancomycin HCl 1 gm/Sodium Chloride 250 ml @ 250 mls/hr Q12H IV Last administered on 12/19/16 00:25; Start 12/18/16 at 00:30 Vancomycin HCl 1 each 1X ONCE MC ; Start 12/19/16 at 12:00; Stop 12/19/16 at 12 :01; Status DC Acetaminophen/ Hydrocodone Bitart (Lortab 7.5/325) 1 tab PRN Q4HRS PRN PO PAIN Last administered on 12/19/16 09:44; Start 12/18/16 at 01:30 Potassium Chloride (Klor-Con) 40 meq Q4HRS PO Last administered on 12/18/16 11 :49; Start 12/18/16 at 09:00; Stop 12/18/16 at 12:01; Status DC Pantoprazole Sodium (Protonix) 40 mg DAILYAC PO Last administered on 12/19/16 07:34; Start 12/18/16 at 16:30 Metronidazole (Flagyl) 500 mg Q6HRS PO Last administered on 12/19/16 12:03; Start 12/18/16 at 15:00 Active Scripts Active Tessalon Perle (Benzonatate) 100 Mg Capsule 1 Cap PO TID Oxycodone-Acetaminophen 5-325 (Oxycodone Hcl/Acetaminophen) 1 Each Tablet 1 Each PO PRN Q6HRS PRN Combivent Respimat Inhal (Ipratropium/Albuterol Sulfate) 4 Gm Aer.w.adap 1 Inh IH QID PRN Doxycycline Hyclate 100 Mg Capsule 1 Cap PO BID [guaiFENesin/CODEINE 100mg/10mg] 5 ML Liquid 5 Ml PO PRN Q6HRS PRN Prednisone 10 Mg Tablet 10 Mg PO UD Take 4 tablets by mouth daily for 3 days, then take 2 tablets by mouth daily for 3 days, then take 1 tablet by mouth daily for 3 days, then stop. Alprazolam 1 Mg Tablet 1 Tab PO PRN BID PRN Levothyroxine Sodium 100 Mcg Tablet 1 Tab PO DAILY Ibuprofen 200 Mg Tablet 200 Mg PO PRN Q6HRS PRN Reported Acetaminophen Pm Caplet (Acetaminophen/Diphenhydramine) 1 Each Tablet 2 Each PO HS Vitals/I & O Vital Sign - Last 24 Hours 12/18/16 12/18/16 12/18/1617 14:29 14:35 15:09 19:00 Temp 97.8 97.5 97.8 97.5 Pulse 81 80 Resp 19 18 B/P (MAP) 129/77 (94) 132/84 (100) Pulse Ox 92 93 93 92 O2 Delivery Nasal Cannula Venturi Mask Venturi Mask Venturi Mask O2 Flow Rate 9.0 9.0 9.0 9.0 12/18/16 12/18/16 12/18/16 12/18/16 19:15 19:34 20:26 23:00 Temp 97.0 97.0 Pulse 74 Resp 20 18 B/P (MAP) 123/80 (94) Pulse Ox 93 93 92 O2 Delivery Venturi Mask Nasal Cannula Nasal Cannula Venturi Mask O2 Flow Rate 9.0 9.0 9.0 9.0 12/19/16 12/19/16 12/19/16 12/19/16 00:29 03:00 03:09 07:20 Temp 97.4 97.4 Pulse 80 Resp 18 19 B/P (MAP) 135/89 (104) Pulse Ox 92 92 92 92 O2 Delivery Nasal Cannula Venturi Mask Nasal Cannula O2 Flow Rate 9.0 9.0 9.0 12/19/16 12/19/16 12/19/16 12/19/16 07:50 08:00 09:44 10:44 Resp 3 18 Pulse Ox 93 O2 Delivery Venturi Mask Venturi Mask Venturi Mask O2 Flow Rate 9.0 9.0 9.0 12/19/16 11:18 Pulse Ox 92 O2 Delivery Venturi Mask O2 Flow Rate 9.0 Intake and Output 12/18/16 12/18/16 12/19/16 15:00 23:00 07:00 Intake Total 600 ml 800 ml Balance 600 ml 800 ml CASTLE,NIAL K III DO Dec 19, 2016 13:18
[2016-12-19] MEDS: ALPRAZolam 1 MG TABLET PO PRN ×2 (14:15→20:45)
[2016-12-19 15:00] VITALS: BP 125/70
[2016-12-19] MEDS: NICOTINE 21MG PATCH. TD SCH (17:51)
[2016-12-19 19:00] VITALS: BP 135/77
[2016-12-19] MEDS: ZOLPIDEM 5 MG TABLET. PO PRN (20:45)
[2016-12-19] MEDS: guaiFENesin/CODEINE 100mg/10mg 5 ML LIQUID PO PRN (20:46)
[2016-12-19 23:00] VITALS: BP 121/67
[2016-12-20] MEDS: ALPRAZolam 0.25 MG TABLET PO PRN (01:44)
[2016-12-20 02:51] VITALS: BP 133/83
[2016-12-20] MEDS: HYDROcodone/APAP 7.5/325MG 1 TAB TABLET PO PRN ×5 (03:31→22:19)
[2016-12-20] MEDS: PANTOPRAZOLE 40 MG TABLET.DR. PO SCH (04:59)
[2016-12-20] MEDS: KETOROLAC 15 MG/ML VIAL. IV SCH ×3 (04:59→22:20)
[2016-12-20] MEDS: LEVOTHYROXINE 100 MCG TABLET PO SCH (05:00)
[2016-12-20] MEDS: metroNIDAZOLE 500 MG TABLET PO SCH (05:00)
[2016-12-20] MEDS: PIPERACILLIN/TAZOBACTAM 3.375 GM in IV NORMAL SALINE 50ML 50 ML IV SCH (05:00)
[2016-12-20] MEDS: IPRATRPIUM/ALBUTEROL 0.5/2.5MG 3 ML NEBU. NEB SCH ×5 (06:00→19:31)
[2016-12-20 07:00] VITALS: BP 149/96
[2016-12-20] MEDS: BUDESONIDE 0.5 MG/2 ML NEBU. NEB SCH ×2 (07:54→19:31)
[2016-12-20] MEDS: NICOTINE 21MG PATCH. TD SCH (08:33)
[2016-12-20] MEDS: CALCIUM CARB/VIT D3 500/200 TABLET. PO SCH ×2 (08:34→17:00)
[2016-12-20] MEDS: predniSONE 20 MG TABLET PO SCH (08:35)
[2016-12-20] MEDS: BENZONATATE 100 MG CAPSULE. PO SCH ×3 (08:35→22:18)
--- NOTE | 2016-12-20 09:02 | PDOC ---
PULMONARY PROGRESS NOTES Subjective has diarrhea, has sob, occ cough, cp improved, no runny nose Vitals Vital Signs Date Time Temp Pulse Resp B/P (MAP) Pulse Ox O2 Delivery O2 Flow Rate FiO2 12/20/16 08:34 20 94 Nasal Cannula 9.0 12/20/16 02:51 97.7 75 133/83 (100) 97.7 ROS: No Nausea, No Chest Pain General: Alert, Oriented X4, No acute distress HEENT: Other (nc at perrl. nose throat clear) Lungs: Crackles Cardiovascular: S1, S2 Abdomen: Soft, Non-tender, Other Neuro Exam: Alert Extremities: No Edema Skin: Warm Labs Laboratory Tests Test 12/19/16 12:00 Vancomycin Level Trough 15.4 mcg/mL (10.0-20.0) Vancomycin Last Dose Date 12/19/16 Vancomycin Last Dose Time 29 Laboratory Tests Test 12/19/16 12:00 Vancomycin Level Trough 15.4 mcg/mL (10.0-20.0) Vancomycin Last Dose Date 12/19/16 Vancomycin Last Dose Time 003 Medications Active Scripts Medications Dose Route/Sig Max Daily Dose Days Date Category Dose Instructions Tessalon Perle (Benzonatate) 100 Mg Capsule 1 Cap PO TID 12/15/16 Rx Oxycodone-Acetaminophen 5-325 (Oxycodone Hcl/Acetaminophen) 1 Each Tablet 1 Each PO PRN Q6HRS PRN 12/15/16 Rx Combivent Respimat Inhal (Ipratropium/Albuterol Sulfate) 4 Gm Aer.w.adap 1 Inh IH QID PRN 12/15/16 Rx Doxycycline Hyclate 100 Mg Capsule 1 Cap PO BID 12/15/16 Rx [guaiFENesin/CODEINE 100mg/10mg] 5 ML Liquid 5 Ml PO PRN Q6HRS PRN 12/15/16 Rx Prednisone 10 Mg Tablet 10 Mg PO UD 12/15/16 Rx Take 4 tablets by mouth daily for 3 days, then take 2 tablets by mouth daily for 3 days, then take 1 tablet by mouth daily for 3 days, then stop. Alprazolam 1 Mg Tablet 1 Tab PO PRN BID PRN 12/15/16 Rx Levothyroxine Sodium 100 Mcg Tablet 1 Tab PO DAILY 12/15/16 Rx Ibuprofen 200 Mg Tablet 200 Mg PO PRN Q6HRS PRN 02/24/16 Rx Acetaminophen Pm Caplet (Acetaminophen/Diphenhydramine) 1 Each Tablet 2 Each PO HS 11/11/15 Reported Impression . IMPRESSION: 1. Ikhpr-xj-ofccssu respiratory failure. 2. Pneumonia with pleurisy. 3. CT CHEST NO PE 4. c diff colitis Plan . cont levoquin, dc zosyn pain control nebs prednisone no change in dose protonix for prophylaxis flagyl 6 min walk bf dc discussed w pt JOSELYN SIEGEL MD Dec 20, 2016 09:02
--- NOTE | 2016-12-20 09:27 | PDOC2 ---
RADHARAEGAN Morgan [employer] 12/20/16 0927: Consult: Consulted 12/18/[address] Vora for positive C. difficile infection HPI: This is a 56 year old woman who has COPD and continues to smoke. She was recently admitted for pneumonia in which she was treated with Zosyn and discharged home on doxy, 12/15. After returning home, she became increasingly shortness of breath with ADLs, increase chest discomfort and had subjective fevers and chills. Denies swelling of legs or palpitations. Patient says she has had a upset stomach, diminished appetite and diarrhea for over a week. Stools are watery, averaging 15 episodes a day and associated with bowel urgency and incontinence. Denies cramping or bloating. PAST MEDICAL HISTORY: Positive for COPD; CHF, CAD, hepatitis C; hyperthyroidism and hypothyroidism, hyper secondary to medications; anxiety; depression; history of questionable pyelonephritis. PAST SURGICAL HISTORY: Positive for hysterectomy, partial thyroidectomy. REVIEW OF SYSTEMS: Otherwise negative except as mentioned above. ALLERGIES: LISTED CLINDAMYCIN, TOOK IT A CHILD. SOCIAL HISTORY: Smoker. 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 CURRENT MEDICATIONS: Reviewed on JUL. Includes Zosyn, Levaquin, Flagyl and steroids. Recent vancomycin PHYSICAL EXAMINATION: CONSTITUTIONAL: Propped up in bed, finishing eating some breakfast,O2 face mask , NAD HEENT: Oral cavity, pharynx clear, dry. LUNGS: Diminished aeration and fine crackles bases, nonlabored HEART: S1, S2. ABDOMEN: Soft, nontender, nondistended. EXTREMITIES: No clubbing, cyanosis or gross edema. SKIN: Warm to touch without signs of rash. NEUROLOGIC: Alert, oriented x 3. LABS: Reviewed BLOOD CULTURE Preliminary NO GROWTH AFTER 3 DAYS CXR IMPRESSION: Worsening dense bibasilar infiltrates suggesting pneumonia. CTA IMPRESSION: 1. No CT evidence of central pulmonary emboli. 2. Moderate bilateral dense pulmonary infiltrates with dominant involvement of the lower and right middle lobes, most compatible with pneumonia. 3. Moderate interlobular septal thickening suggesting a component of interstitial pulmonary edema. 4. Small bilateral pleural effusions. 5. Emphysema. 6. Mild subcarinal adenopathy. IMPRESSION 1. C. difficile diarrhea, 12/17/2016 2. Pneumonia 3. CHF 4. Leukocytosis, on steroids 5. COPD 6. Tobaccoism Plan Wean antibiotics Dose po vancomycin Maintain hydration Smoking cessation Thank you TAMI ESCALANTE MD 12/20/16 1139: Consult: pt seen, examined, d/w RAEGAN GREEN APRN Dec 20, 2016 09:27 TAMI ESCALANTE MD Dec 20, 2016 11:39
[2016-12-20] MEDS: ALPRAZolam 1 MG TABLET PO PRN (10:25)
[2016-12-20] MEDS: VANCOMYCIN 125 MG/2.5 ML ORAL SOLUTION. PO SCH ×4 (10:26→22:19)
[2016-12-20 11:00] VITALS: BP 155/89
[2016-12-20] MEDS ORDERED: CALCIUM GLUCONATE 1,000 MG in IV NORMAL SALINE 100ML 100 ML IV ONE (13:15)
--- NOTE | 2016-12-20 14:18 | PDOC ---
PROGRESS NOTES Chief Complaint Chief Complaint SOB Acute hypoxic respiratory failure Pneumonia Sepsis Chest pain, pleuritic, req. IV pain meds Tobaccoism Mod/severe malnutrition History of Present Illness History of Present Illness 56 y/o with CC of SOB. Patient was laying supine on bed Pt was receiving Venti mask tx. Patient appeared alert. Vitals Vitals Vital Signs Date Time Temp Pulse Resp B/P (MAP) Pulse Ox O2 Delivery O2 Flow Rate FiO2 12/20/16 13:49 20 94 Nasal Cannula 9.0 12/20/16 11:00 98.0 69 155/89 (111) 98.0 Physical Exam General: Alert, Oriented X3, Cooperative, moderate distress Heart: Regular rate (SR), Normal S1, Normal S2, Other (4/6 systolic murmur to LLS border) Lungs: Crackles, Other Abdomen: Normal bowel sounds, Soft Extremities: No cyanosis, Other (1+ bilateral LE pitting edema) Skin: No breakdown, No significant lesion Review of Systems Review of Systems Complains of mild SOB. Weakness. Assessment and Plan Assessmemt and Plan Problems Medical Problems: (1) COPD exacerbation Status: Acute (2) Elevated brain natriuretic peptide (BNP) level Status: Acute (3) Hypoxia Status: Acute (4) Leukocytosis Status: Acute (5) Sepsis Status: Acute Assessment: SOB Acute hypoxic respiratory failure Pneumonia Sepsis Chest pain, pleuritic, req. IV pain meds Tobaccoism Mod/severe malnutrition Plan: 1. Continue oxygen therapy 2. Continue nebulizer/breathing therapy 3. Continue antibiotics 4. Recheck labs 5. Monitor vitals 6. PT/OT 7. Home meds 8. Consult with nephrology 9. Ordered calcium gluconate Problems: Comment Review of Relevant I have reviewed the following items vasquez (where applicable) has been applied. Labs Laboratory Tests Test 12/19/16 12:00 Vancomycin Level Trough 15.4 mcg/mL (10.0-20.0) Vancomycin Last Dose Date 12/19/16 Vancomycin Last Dose Time 003 Microbiology 12/16/16 Blood Culture - Preliminary, Resulted NO GROWTH AFTER 4 DAYS Medications Current Medications Albuterol/ Ipratropium (Duoneb) 3 ml 1X ONCE NEB Last administered on t 10:45; Start 12/16/16 at 10:45; Stop 12/16/16 at 10:46; Status DC Albuterol Sulfate (Ventolin Neb Soln) 5 mg 1X ONCE NEB Last administered on 10:45; Start 12/16/16 at 10:45; Stop 12/16/16 at 10:46; Status DC Methylprednisolone Sodium Succinate (SOLU-Medrol 125MG VIAL) 125 mg 1X ONCE IV Last administered on 12/16/16 10:41; Start 12/16/16 at 10:45; Stop 12/16/16 at 10:46; Status DC Sodium Chloride 1,000 ml @ 1,500 mls/hr Q40M IV Last administered on 10:53; Start 12/16/16 at 11:00; Stop 12/16/16 at 11:59; Status DC Levofloxacin/ Dextrose (Levaquin Per Pharmacy) 1 each PRN DAILY PRN MC SEE COMMENTS; Start 12/16/16 at 11:30 Vancomycin HCl (Vanco Per Pharmacy) 1 each PRN DAILY PRN MC SEE COMMENTS Last administered on 12/19/16 13:00; Start 12/16/16 at 11:30; Stop 12/19/16 at 14:10 ; Status DC Piperacillin Sod/ Tazobactam Sod (Zosyn Per Pharmacy) 1 each PRN DAILY PRN MC SEE COMMENTS; Start 12/16/16 at 11:30; Stop 12/20/16 at 09:02; Status DC Levofloxacin/ Dextrose 150 ml @ 100 mls/hr Q24H IV Last administered on 13:47; Start 12/16/16 at 13:00 Vancomycin HCl 1.25 gm/Sodium Chloride 250 ml @ 166.667 mls/hr 1X ONCE IV Last administered on 12/16/16 12:13; Start 12/16/16 at 11:30; Stop 12/16/16 at 12:59; Status DC Piperacillin Sod/ Tazobactam Sod 3.375 gm/Sodium Chloride 50 ml @ 100 mls/hr Q6HRS IV Last administered on 12/20/16 05:00; Start 12/16/16 at 12:00; Stop at 09:04; Status DC Ondansetron HCl (Zofran) 4 mg PRN Q8HRS PRN IV NAUSEA/VOMITING; Start 12/16/16 at 12:15; Stop 12/17/16 at 12:14; Status DC Fentanyl Citrate (Fentanyl 2ml Vial) 50 mcg PRN Q2HR PRN IV PAIN Last administered on 12/17/16 06:28; Start 12/16/16 at 12:15; Stop 12/17/16 at 12:14 ; Status DC Acetaminophen (Tylenol) 650 mg PRN Q4HRS PRN PO FEVER; Start 12/16/16 at 12:15 ; Stop 12/17/16 at 12:14; Status DC Albuterol/ Ipratropium (Duoneb) 3 ml RTQID NEB ; Start 12/16/16 at 16:00; Stop 12/16/16 at 16:00; Status DC Prednisone (Prednisone) 40 mg DAILY PO Last administered on 12/20/16 08:35; Start 12/17/16 at 09:00 Albuterol/ Ipratropium (Duoneb) 3 ml Q4HRS W/A NEB Last administered on 11:17; Start 12/16/16 at 14:00 Budesonide (Pulmicort) 0.5 mg RTBID NEB Last administered on 12/20/16 07:54; Start 12/16/16 at 20:00 Budesonide (Pulmicort) 0.5 mg 1X ONCE NEB Last administered on 12/16/16 16:05 ; Start 12/16/16 at 13:00; Stop 12/16/16 at 13:01; Status DC Ketorolac Tromethamine (Toradol) 30 mg 1X ONCE IV Last administered on 15:13; Start 12/16/16 at 14:00; Stop 12/16/16 at 14:01; Status DC Ketorolac Tromethamine (Toradol) 15 mg PRN Q6HRS PRN IV PAIN Last administered on 12/19/16 00:26; Start 12/16/16 at 15:00; Stop 12/21/16 at 14:59 Iohexol (Omnipaque 300 Mg/ml) 75 ml 1X ONCE IV Last administered on 12/16/16 14:48; Start 12/16/16 at 14:15; Stop 12/16/16 at 14:16; Status DC Info (Do NOT chart on this entry -- for MONITORING) 1 each PRN DAILY PRN MC SEE COMMENTS; Start 12/16/16 at 14:15; Stop 12/18/16 at 14:14; Status DC Guaifenesin (Robitussin) 200 mg PRN Q4HRS PRN PO COUGH Last administered on 13:47; Start 12/16/16 at 14:30 Vancomycin HCl 750 mg/Sodium Chloride 250 ml @ 250 mls/hr Q12H IV Last administered on 12/17/16 13:35; Start 12/17/16 at 00:00; Stop 12/18/16 at 00:11 ; Status DC Vancomycin HCl 1 each 1X ONCE MC Last administered on 12/17/16 23:30; Start 12/17/16 at 23:30; Stop 12/17/16 at 23:31; Status DC Alprazolam (Xanax) 1 mg PRN BID PRN PO ANXIETY / AGITATION Last administered on 12/20/16 10:25; Start 12/16/16 at 18:15 Benzonatate (Tessalon Perle) 100 mg TID PO Last administered on 12/20/16 13:47 ; Start 12/16/16 at 21:00 Levothyroxine Sodium (Synthroid) 100 mcg DAILY07 PO Last administered on 05:00; Start 12/17/16 at 07:00 Guaifenesin/ Codeine Phosphate (Robitussin Ac) 5 ml PRN Q6HRS PRN PO COUGH Last administered on 12/19/16 20:46; Start 12/16/16 at 18:30 Diphenhydramine HCl (Benadryl) 50 mg 1X ONCE PO Last administered on 00:09; Start 12/17/16 at 00:15; Stop 12/17/16 at 00:16; Status DC Furosemide (Lasix) 40 mg 1X ONCE IVP Last administered on 12/17/16 13:34; Start 12/17/16 at 12:30; Stop 12/17/16 at 12:31; Status DC Calcium Gluconate 1000 mg/Sodium Chloride 110 ml @ 220 mls/hr 1X ONCE IV Last administered on 12/17/16 12:33; Start 12/17/16 at 12:30; Stop 12/17/16 at 12:59; Status DC Fentanyl Citrate (Fentanyl 2ml Vial) 75 mcg PRN Q2HR PRN IV pain Last administered on 12/17/16 13:43; Start 12/17/16 at 13:15 Calcium Gluconate 1000 mg/Sodium Chloride 110 ml @ 220 mls/hr 1X ONCE IV ; Start 12/17/16 at 15:00; Stop 12/17/16 at 15:29; Status DC Calcium/Vitamin D (Oscal D 500mg/ 200uts) 1 tab BIDWMEALS PO Last administered on 12/20/16 08:34; Start 12/17/16 at 17:00 Ketorolac Tromethamine (Toradol) 15 mg Q8HRS IV ; Start 12/17/16 at 22:00; Stop 12/22/16 at 21:59; Status Cancel Ketorolac Tromethamine (Toradol) 15 mg Q8HRS IV Last administered on 12/20/16 10:25; Start 12/17/16 at 21:00; Stop 12/22/16 at 20:59 Zolpidem Tartrate (Ambien) 5 mg PRN QHS PRN PO INSOMNIA Last administered on 20:45; Start 12/17/16 at 22:45 Vancomycin HCl 1 gm/Sodium Chloride 250 ml @ 250 mls/hr Q12H IV Last administered on 12/19/16 00:25; Start 12/18/16 at 00:30; Stop 12/19/16 at 14:14 ; Status DC Vancomycin HCl 1 each 1X ONCE MC ; Start 12/19/16 at 12:00; Stop 12/19/16 at 12 :01; Status DC Acetaminophen/ Hydrocodone Bitart (Lortab 7.5/325) 1 tab PRN Q4HRS PRN PO PAIN Last administered on 12/20/16 13:49; Start 12/18/16 at 01:30 Potassium Chloride (Klor-Con) 40 meq Q4HRS PO Last administered on 12/18/16 11 :49; Start 12/18/16 at 09:00; Stop 12/18/16 at 12:01; Status DC Pantoprazole Sodium (Protonix) 40 mg DAILYAC PO Last administered on 12/20/16 04:59; Start 12/18/16 at 16:30 Metronidazole (Flagyl) 500 mg Q6HRS PO Last administered on 12/20/16 05:00; Start 12/18/16 at 15:00; Stop 12/20/16 at 09:21; Status DC Alprazolam (Xanax) 0.25 mg PRN Q8HRS PRN PO ANXIETY / AGITATION Last administered on 12/20/16 01:44; Start 12/19/16 at 17:30 Nicotine (Nicoderm Cq 21mg) 1 patch DAILY TD Last administered on 12/20/16 08: 33; Start 12/19/16 at 17:30 Vancomycin HCl 125 mg [id number] PO Last administered on 12/20/16 13:47; Start at 09:00 Calcium Gluconate 1000 mg/Sodium Chloride 110 ml @ 220 mls/hr 1X ONCE IV ; Start 12/20/16 at 13:15; Stop 12/20/16 at 13:44; Status DC Active Scripts Active Tessalon Perle (Benzonatate) 100 Mg Capsule 1 Cap PO TID Oxycodone-Acetaminophen 5-325 (Oxycodone Hcl/Acetaminophen) 1 Each Tablet 1 Each PO PRN Q6HRS PRN Combivent Respimat Inhal (Ipratropium/Albuterol Sulfate) 4 Gm Aer.w.adap 1 Inh IH QID PRN Doxycycline Hyclate 100 Mg Capsule 1 Cap PO BID [guaiFENesin/CODEINE 100mg/10mg] 5 ML Liquid 5 Ml PO PRN Q6HRS PRN Prednisone 10 Mg Tablet 10 Mg PO UD Take 4 tablets by mouth daily for 3 days, then take 2 tablets by mouth daily for 3 days, then take 1 tablet by mouth daily for 3 days, then stop. Alprazolam 1 Mg Tablet 1 Tab PO PRN BID PRN Levothyroxine Sodium 100 Mcg Tablet 1 Tab PO DAILY Ibuprofen 200 Mg Tablet 200 Mg PO PRN Q6HRS PRN Reported Acetaminophen Pm Caplet (Acetaminophen/Diphenhydramine) 1 Each Tablet 2 Each PO HS Vitals/I & O Vital Sign - Last 24 Hours 12/19/16 12/19/16 12/19/16 12/19/16 15:00 15:03 17:40 19:00 Temp 98.1 97.7 98.1 97.7 Pulse 69 75 Resp 20 20 20 B/P (MAP) 125/70 (88) 135/77 (96) Pulse Ox 93 95 O2 Delivery Venturi Mask Venturi Mask Venturi Mask Venturi Mask O2 Flow Rate 9.0 9.0 9.0 9.0 12/19/16 12/19/16 12/19/16 12/19/16 19:31 19:33 23:00 23:24 Temp 97.5 97.5 Pulse 71 Resp 20 18 B/P (MAP) 121/67 (85) Pulse Ox 91 93 91 O2 Delivery Venturi Mask Nasal Cannula Venturi Mask Nasal Cannula O2 Flow Rate 9.0 9.0 9.0 9.0 12/20/16 12/20/16 12/20/16 12/20/16 02:51 03:31 07:00 07:58 Temp 97.7 98.1 97.7 98.1 Pulse 75 69 Resp 20 18 20 B/P (MAP) 133/83 (100) 149/96 (113) Pulse Ox 95 95 94 94 O2 Delivery Venturi Mask Nasal Cannula Venturi Mask Venturi Mask O2 Flow Rate 9.0 9.0 9.0 9.0 12/20/16 12/20/16 12/20/16 12/20/16 07:58 08:00 08:34 09:34 Resp 20 20 Pulse Ox 94 94 94 O2 Delivery Venturi Mask Nasal Cannula Nasal Cannula Nasal Cannula O2 Flow Rate 9.0 9.0 9.0 9.0 12/20/16 12/20/16 12/20/16 11:00 11:18 13:49 Temp 98.0 98.0 Pulse 69 Resp 20 20 B/P (MAP) 155/89 (111) Pulse Ox 94 94 O2 Delivery Venturi Mask Venturi Mask Nasal Cannula O2 Flow Rate 9.0 9.0 9.0 Intake and Output 12/19/16 12/19/16 12/20/16 15:00 23:00 07:00 Intake Total 440 ml 290 ml 120 ml Output Total 300 ml 750 ml 900 ml Balance 140 ml -460 ml -780 ml JUDY HOLT III DO Dec 20, 2016 14:18
[2016-12-20 15:00] VITALS: BP 169/94
[2016-12-20 19:00] VITALS: BP 147/75
[2016-12-20] MEDS: guaiFENesin/CODEINE 100mg/10mg 5 ML LIQUID PO PRN (22:18)
[2016-12-20] MEDS: ZOLPIDEM 5 MG TABLET. PO PRN (22:19)
[2016-12-20 23:00] VITALS: BP 135/76
[2016-12-21] MEDS: HYDROcodone/APAP 7.5/325MG 1 TAB TABLET PO PRN ×4 (02:24→19:54)
[2016-12-21 03:17] VITALS: BP 122/76
[2016-12-21] MEDS: KETOROLAC 15 MG/ML VIAL. IV SCH ×3 (05:00→19:54)
[2016-12-21] MEDS: PANTOPRAZOLE 40 MG TABLET.DR. PO SCH (05:00)
[2016-12-21] MEDS: LEVOTHYROXINE 100 MCG TABLET PO SCH (05:00)
[2016-12-21 05:02] LABS: BASO # 0.1 x10^3/uL (0.0-0.2); BASO % 0 % (0-3); EOS % 0 % (0-3); HEMATOCRIT 36.1 % (36.0-47.0); LYMPH # 3.2 x10^3/uL (1.0-4.8); LYMPH % 22 % (24-48); MEAN CORPUSCULAR HEMOGLOBIN 31 pg (25-35); MEAN CORPUSCULAR HGB CONC 33 g/dL (31-37); MEAN CORPUSCULAR VOLUME 94 fL (79-100); MONO % 9 % (0-9); NEUT % 68 % (31-73); PLATELET COUNT 425 x10^3/uL (140-400); RED BLOOD COUNT 3.85 x10^6/uL (3.50-5.40); RED CELL DISTRIBUTION WIDTH 14.8 % (11.5-14.5); WHITE BLOOD COUNT 14.5 x10^3/uL (4.0-11.0)
[2016-12-21 05:50] LABS: CALCIUM 7.5 mg/dL (8.5-10.1); CREATININE 0.8 mg/dL (0.6-1.0); GFR 74.7; POTASSIUM 3.4 mmol/L (3.5-5.1)
[2016-12-21 07:16] LABS: PLT ESTIMATE INCREASED (ADEQUATE)
[2016-12-21 07:17] LABS: ANISOCYTOSIS PRESENT
[2016-12-21 07:42] VITALS: BP 134/79
[2016-12-21] MEDS: IPRATRPIUM/ALBUTEROL 0.5/2.5MG 3 ML NEBU. NEB SCH ×5 (07:51→22:00)
[2016-12-21] MEDS: BUDESONIDE 0.5 MG/2 ML NEBU. NEB SCH ×2 (07:51→20:00)
[2016-12-21] MEDS: NICOTINE 21MG PATCH. TD SCH (08:18)
[2016-12-21] MEDS: ALPRAZolam 0.25 MG TABLET PO PRN (08:18)
[2016-12-21] MEDS: predniSONE 20 MG TABLET PO SCH (08:18)
[2016-12-21] MEDS: CALCIUM CARB/VIT D3 500/200 TABLET. PO SCH ×2 (08:18→17:04)
[2016-12-21] MEDS: BENZONATATE 100 MG CAPSULE. PO SCH ×3 (08:18→19:53)
--- NOTE | 2016-12-21 08:20 | PDOC ---
Infectious Disease Note Subjective Subjective feeling better, says ready to go home ROS ROS GEN: Denies fevers, chills, sweats HEENT: Denies blurred vision, sore throat CV: Denies chest pain RESP: Denies shortness of air, cough GI: Denies n/v/d NEURO: Denies confusion, dizziness MSK: Denies weakness, joint pain/swelling Vital Sign Vital Signs Vital Signs Date Time Temp Pulse Resp B/P (MAP) Pulse Ox O2 Delivery O2 Flow Rate FiO2 12/21/16 07:51 94 Venturi Mask 9.0 12/21/16 03:17 98.4 76 20 122/76 (91) 98.4 Physical Exam PHYSICAL EXAM GENERAL: NAD, Alert HEENT: PERRL, OC/OP NECK: Supple, no JVD, no LN LUNGS: Clear HEART: S1S2, no gallop, no murmur ABD: Soft, NT, no organomegaly, no rebound EXT: No edema, no cyanosis 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, oriented x 3, no focal neurologic deficit SKIN: No rash IV: ok Labs Lab Laboratory Tests Test 12/21/16 04:25 White Blood Count 14.5 x10^3/uL (4.0-11.0) Red Blood Count 3.85 x10^6/uL (3.50-5.40) Hemoglobin 12.0 g/dL (12.0-15.5) Hematocrit 36.1 % (36.0-47.0) Mean Corpuscular Volume 94 fL (79-100) Mean Corpuscular Hemoglobin 31 pg (25-35) Mean Corpuscular Hemoglobin Concent 33 g/dL (31-37) Red Cell Distribution Width 14.8 % (11.5-14.5) Platelet Count 425 x10^3/uL (140-400) Neutrophils (%) (Auto) 68 % (31-73) Lymphocytes (%) (Auto) 22 % (24-48) Monocytes (%) (Auto) 9 % (0-9) Eosinophils (%) (Auto) 0 % (0-3) Basophils (%) (Auto) 0 % (0-3) Neutrophils # (Auto) 9.9 x10^3uL (1.8-7.7) Lymphocytes # (Auto) 3.2 x10^3/uL (1.0-4.8) Monocytes # (Auto) 1.2 x10^3/uL (0.0-1.1) Eosinophils # (Auto) 0.0 x10^3/uL (0.0-0.7) Basophils # (Auto) 0.1 x10^3/uL (0.0-0.2) Segmented Neutrophils % 70 % (35-66) Band Neutrophils % 1 % (0-9) Lymphocytes % 18 % (24-48) Monocytes % 11 % (0-10) Platelet Estimate Increased (ADEQUATE) Large Platelets Present Anisocytosis Present Sodium Level 139 mmol/L (136-145) Potassium Level 3.4 mmol/L (3.5-5.1) Chloride Level 103 mmol/L (98-107) Carbon Dioxide Level 29 mmol/L (21-32) Anion Gap 7 (6-14) Blood Urea Nitrogen 15 mg/dL (7-20) Creatinine 0.8 mg/dL (0.6-1.0) Estimated GFR (Cockcroft-Gault) 74.7 Glucose Level 106 mg/dL (70-99) Calcium Level 7.5 mg/dL (8.5-10.1) Objective Assessment 1. C. difficile diarrhea, 12/17/2016 2. Pneumonia 3. CHF 4. Leukocytosis, on steroids 5. COPD 6. Tobaccoism Plan Plan of Care augmentin po for 7 days and po vanc for 2 wks strongly adv to quit smoking TAMI ESCALANTE MD Dec 21, 2016 08:20
[2016-12-21] MEDS: VANCOMYCIN 125 MG/2.5 ML ORAL SOLUTION. PO SCH ×4 (08:27→19:53)
[2016-12-21] MEDS: AMOXICILLIN/K CLAV 875/125MG TABLET. PO SCH ×2 (09:11→19:54)
--- NOTE | 2016-12-21 10:20 | PDOC ---
PULMONARY PROGRESS NOTES Subjective PT FEELS BETTER WANTS TO GO HOME Vitals Vital Signs Date Time Temp Pulse Resp B/P (MAP) Pulse Ox O2 Delivery O2 Flow Rate FiO2 12/21/16 09:42 94 Venturi Mask 9.0 12/21/16 07:42 96.3 61 20 134/79 (97) 96.3 ROS: No Nausea, No Chest Pain General: Alert, Oriented X4, No acute distress HEENT: Other (nc at perrl. nose throat clear) Lungs: Crackles, Other Cardiovascular: S1, S2 Abdomen: Soft, Non-tender, Other Neuro Exam: Alert Extremities: No Edema Skin: Warm Labs Laboratory Tests Test 12/19/16 12:00 12/21/16 04:25 Vancomycin Level Trough 15.4 mcg/mL (10.0-20.0) Vancomycin Last Dose Date 12/19/16 Vancomycin Last Dose Time 0030 White Blood Count 14.5 x10^3/uL (4.0-11.0) Red Blood Count 3.85 x10^6/uL (3.50-5.40) Hemoglobin 12.0 g/dL (12.0-15.5) Hematocrit 36.1 % (36.0-47.0) Mean Corpuscular Volume 94 fL (79-100) Mean Corpuscular Hemoglobin 31 pg (25-35) Mean Corpuscular Hemoglobin Concent 33 g/dL (31-37) Red Cell Distribution Width 14.8 % (11.5-14.5) Platelet Count 425 x10^3/uL (140-400) Neutrophils (%) (Auto) 68 % (31-73) Lymphocytes (%) (Auto) 22 % (24-48) Monocytes (%) (Auto) 9 % (0-9) Eosinophils (%) (Auto) 0 % (0-3) Basophils (%) (Auto) 0 % (0-3) Neutrophils # (Auto) 9.9 x10^3uL (1.8-7.7) Lymphocytes # (Auto) 3.2 x10^3/uL (1.0-4.8) Monocytes # (Auto) 1.2 x10^3/uL (0.0-1.1) Eosinophils # (Auto) 0.0 x10^3/uL (0.0-0.7) Basophils # (Auto) 0.1 x10^3/uL (0.0-0.2) Segmented Neutrophils % 70 % (35-66) Band Neutrophils % 1 % (0-9) Lymphocytes % 18 % (24-48) Monocytes % 11 % (0-10) Platelet Estimate Increased (ADEQUATE) Large Platelets Present Anisocytosis Present Sodium Level 139 mmol/L (136-145) Potassium Level 3.4 mmol/L (3.5-5.1) Chloride Level 103 mmol/L (98-107) Carbon Dioxide Level 29 mmol/L (21-32) Anion Gap 7 (6-14) Blood Urea Nitrogen 15 mg/dL (7-20) Creatinine 0.8 mg/dL (0.6-1.0) Estimated GFR (Cockcroft-Gault) 74.7 Glucose Level 106 mg/dL (70-99) Calcium Level 7.5 mg/dL (8.5-10.1) Laboratory Tests Test 12/21/16 04:25 White Blood Count 14.5 x10^3/uL (4.0-11.0) Red Blood Count 3.85 x10^6/uL (3.50-5.40) Hemoglobin 12.0 g/dL (12.0-15.5) Hematocrit 36.1 % (36.0-47.0) Mean Corpuscular Volume 94 fL (79-100) Mean Corpuscular Hemoglobin 31 pg (25-35) Mean Corpuscular Hemoglobin Concent 33 g/dL (31-37) Red Cell Distribution Width 14.8 % (11.5-14.5) Platelet Count 425 x10^3/uL (140-400) Neutrophils (%) (Auto) 68 % (31-73) Lymphocytes (%) (Auto) 22 % (24-48) Monocytes (%) (Auto) 9 % (0-9) Eosinophils (%) (Auto) 0 % (0-3) Basophils (%) (Auto) 0 % (0-3) Neutrophils # (Auto) 9.9 x10^3uL (1.8-7.7) Lymphocytes # (Auto) 3.2 x10^3/uL (1.0-4.8) Monocytes # (Auto) 1.2 x10^3/uL (0.0-1.1) Eosinophils # (Auto) 0.0 x10^3/uL (0.0-0.7) Basophils # (Auto) 0.1 x10^3/uL (0.0-0.2) Segmented Neutrophils % 70 % (35-66) Band Neutrophils % 1 % (0-9) Lymphocytes % 18 % (24-48) Monocytes % 11 % (0-10) Platelet Estimate Increased (ADEQUATE) Large Platelets Present Anisocytosis Present Sodium Level 139 mmol/L (136-145) Potassium Level 3.4 mmol/L (3.5-5.1) Chloride Level 103 mmol/L (98-107) Carbon Dioxide Level 29 mmol/L (21-32) Anion Gap 7 (6-14) Blood Urea Nitrogen 15 mg/dL (7-20) Creatinine 0.8 mg/dL (0.6-1.0) Estimated GFR (Cockcroft-Gault) 74.7 Glucose Level 106 mg/dL (70-99) Calcium Level 7.5 mg/dL (8.5-10.1) Medications Active Scripts Medications Dose Route/Sig Max Daily Dose Days Date Category Dose Instructions Tessalon Perle (Benzonatate) 100 Mg Capsule 1 Cap PO TID 12/15/16 Rx Oxycodone-Acetaminophen 5-325 (Oxycodone Hcl/Acetaminophen) 1 Each Tablet 1 Each PO PRN Q6HRS PRN 12/15/16 Rx Combivent Respimat Inhal (Ipratropium/Albuterol Sulfate) 4 Gm Aer.w.adap 1 Inh IH QID PRN 12/15/16 Rx Doxycycline Hyclate 100 Mg Capsule 1 Cap PO BID 12/15/16 Rx [guaiFENesin/CODEINE 100mg/10mg] 5 ML Liquid 5 Ml PO PRN Q6HRS PRN 12/15/16 Rx Prednisone 10 Mg Tablet 10 Mg PO UD 12/15/16 Rx Take 4 tablets by mouth daily for 3 days, then take 2 tablets by mouth daily for 3 days, then take 1 tablet by mouth daily for 3 days, then stop. Alprazolam 1 Mg Tablet 1 Tab PO PRN BID PRN 12/15/16 Rx Levothyroxine Sodium 100 Mcg Tablet 1 Tab PO DAILY 12/15/16 Rx Ibuprofen 200 Mg Tablet 200 Mg PO PRN Q6HRS PRN 02/24/16 Rx Acetaminophen Pm Caplet (Acetaminophen/Diphenhydramine) 1 Each Tablet 2 Each PO HS 11/11/15 Reported Impression . IMPRESSION: 1. Ouyoo-su-dosgsla respiratory failure. 2. Pneumonia with pleurisy. 3. CT CHEST NO PE 4. c diff colitis Plan . D/C HOME IN AM SEE ID NOTE FOR ANTIBX PT HAS 02 A HOME WILFRID FORREST MD Dec 21, 2016 10:20
[2016-12-21 10:30] VITALS: BP 128/71
[2016-12-21 14:30] VITALS: BP 105/65
[2016-12-21 19:40] VITALS: BP 114/68
[2016-12-21] MEDS: ALPRAZolam 1 MG TABLET PO PRN (19:53)
[2016-12-21] MEDS: ZOLPIDEM 5 MG TABLET. PO PRN (19:54)
[2016-12-21 22:29] VITALS: BP 107/73
[2016-12-22 02:47] VITALS: BP 136/84
[2016-12-22] MEDS: HYDROcodone/APAP 7.5/325MG 1 TAB TABLET PO PRN ×2 (02:47→07:57)
[2016-12-22 04:47] LABS: BASO % 0 % (0-3); EOS % 0 % (0-3); HEMATOCRIT 37.5 % (36.0-47.0); HEMOGLOBIN 12.3 g/dL (12.0-15.5); LYMPH # 3.1 x10^3/uL (1.0-4.8); LYMPH % 18 % (24-48); MEAN CORPUSCULAR HEMOGLOBIN 31 pg (25-35); MEAN CORPUSCULAR HGB CONC 33 g/dL (31-37); MEAN CORPUSCULAR VOLUME 94 fL (79-100); MONO % 9 % (0-9); NEUT % 73 % (31-73); PLATELET COUNT 435 x10^3/uL (140-400); RED BLOOD COUNT 3.98 x10^6/uL (3.50-5.40); WHITE BLOOD COUNT 17.9 x10^3/uL (4.0-11.0)
[2016-12-22 04:58] LABS: CALCIUM 7.8 mg/dL (8.5-10.1); CREATININE 0.7 mg/dL (0.6-1.0); GFR 87.2; POTASSIUM 3.3 mmol/L (3.5-5.1)
[2016-12-22] MEDS: PANTOPRAZOLE 40 MG TABLET.DR. PO SCH (05:14)
[2016-12-22] MEDS: LEVOTHYROXINE 100 MCG TABLET PO SCH (05:14)
[2016-12-22] MEDS: KETOROLAC 15 MG/ML VIAL. IV SCH (05:15)
[2016-12-22 07:23] VITALS: BP 117/73
[2016-12-22] MEDS: IPRATRPIUM/ALBUTEROL 0.5/2.5MG 3 ML NEBU. NEB SCH ×2 (07:44→11:24)
[2016-12-22] MEDS: BUDESONIDE 0.5 MG/2 ML NEBU. NEB SCH (07:44)
[2016-12-22] MEDS: ALPRAZolam 0.25 MG TABLET PO PRN (07:57)
[2016-12-22] MEDS: predniSONE 20 MG TABLET PO SCH (07:57)
[2016-12-22] MEDS: AMOXICILLIN/K CLAV 875/125MG TABLET. PO SCH (07:57)
[2016-12-22] MEDS: CALCIUM CARB/VIT D3 500/200 TABLET. PO SCH (07:57)
[2016-12-22] MEDS: BENZONATATE 100 MG CAPSULE. PO SCH (07:57)
[2016-12-22] MEDS: VANCOMYCIN 125 MG/2.5 ML ORAL SOLUTION. PO SCH (09:00)
[2016-12-22] MEDS: NICOTINE 21MG PATCH. TD SCH (09:00)
[2016-12-22 10:50] VITALS: BP 119/79
[2016-12-22] MEDS ORDERED: AMOX1TAB61 PO (12:17)
[2016-12-22] MEDS ORDERED: METR500T PO (12:17)
--- NOTE | 2016-12-22 13:08 | PDOC ---
PULMONARY PROGRESS NOTES Subjective PT FEELS BETTER WANTS TO GO HOME Vitals Vital Signs Date Time Temp Pulse Resp B/P (MAP) Pulse Ox O2 Delivery O2 Flow Rate FiO2 12/22/16 11:25 94 Nasal Cannula 3.0 12/22/16 10:50 98.2 73 20 119/79 (92) 98.2 ROS: No Nausea, No Chest Pain General: Alert, Oriented X4, No acute distress HEENT: Other (nc at perrl. nose throat clear) Lungs: Crackles, Other Cardiovascular: S1, S2 Abdomen: Soft, Non-tender, Other Neuro Exam: Alert Extremities: No Edema Skin: Warm Labs Laboratory Tests Test 12/21/16 04:25 12/22/16 04:00 White Blood Count 14.5 x10^3/uL (4.0-11.0) 17.9 x10^3/uL (4.0-11.0) Red Blood Count 3.85 x10^6/uL (3.50-5.40) 3.98 x10^6/uL (3.50-5.40) Hemoglobin 12.0 g/dL (12.0-15.5) 12.3 g/dL (12.0-15.5) Hematocrit 36.1 % (36.0-47.0) 37.5 % (36.0-47.0) Mean Corpuscular Volume 94 fL (79-100) 94 fL (79-100) Mean Corpuscular Hemoglobin 31 pg (25-35) 31 pg (25-35) Mean Corpuscular Hemoglobin Concent 33 g/dL (31-37) 33 g/dL (31-37) Red Cell Distribution Width 14.8 % (11.5-14.5) 15.0 % (11.5-14.5) Platelet Count 425 x10^3/uL (140-400) 435 x10^3/uL (140-400) Neutrophils (%) (Auto) 68 % (31-73) 73 % (31-73) Lymphocytes (%) (Auto) 22 % (24-48) 18 % (24-48) Monocytes (%) (Auto) 9 % (0-9) 9 % (0-9) Eosinophils (%) (Auto) 0 % (0-3) 0 % (0-3) Basophils (%) (Auto) 0 % (0-3) 0 % (0-3) Neutrophils # (Auto) 9.9 x10^3uL (1.8-7.7) 13.1 x10^3uL (1.8-7.7) Lymphocytes # (Auto) 3.2 x10^3/uL (1.0-4.8) 3.1 x10^3/uL (1.0-4.8) Monocytes # (Auto) 1.2 x10^3/uL (0.0-1.1) 1.5 x10^3/uL (0.0-1.1) Eosinophils # (Auto) 0.0 x10^3/uL (0.0-0.7) 0.0 x10^3/uL (0.0-0.7) Basophils # (Auto) 0.1 x10^3/uL (0.0-0.2) 0.0 x10^3/uL (0.0-0.2) Segmented Neutrophils % 70 % (35-66) Band Neutrophils % 1 % (0-9) Lymphocytes % 18 % (24-48) Monocytes % 11 % (0-10) Platelet Estimate Increased (ADEQUATE) Large Platelets Present Anisocytosis Present Sodium Level 139 mmol/L (136-145) 140 mmol/L (136-145) Potassium Level 3.4 mmol/L (3.5-5.1) 3.3 mmol/L (3.5-5.1) Chloride Level 103 mmol/L (98-107) 103 mmol/L (98-107) Carbon Dioxide Level 29 mmol/L (21-32) 28 mmol/L (21-32) Anion Gap 7 (6-14) 9 (6-14) Blood Urea Nitrogen 15 mg/dL (7-20) 19 mg/dL (7-20) Creatinine 0.8 mg/dL (0.6-1.0) 0.7 mg/dL (0.6-1.0) Estimated GFR (Cockcroft-Gault) 74.7 87.2 Glucose Level 106 mg/dL (70-99) 119 mg/dL (70-99) Calcium Level 7.5 mg/dL (8.5-10.1) 7.8 mg/dL (8.5-10.1) Laboratory Tests Test 12/22/16 04:00 White Blood Count 17.9 x10^3/uL (4.0-11.0) Red Blood Count 3.98 x10^6/uL (3.50-5.40) Hemoglobin 12.3 g/dL (12.0-15.5) Hematocrit 37.5 % (36.0-47.0) Mean Corpuscular Volume 94 fL (79-100) Mean Corpuscular Hemoglobin 31 pg (25-35) Mean Corpuscular Hemoglobin Concent 33 g/dL (31-37) Red Cell Distribution Width 15.0 % (11.5-14.5) Platelet Count 435 x10^3/uL (140-400) Neutrophils (%) (Auto) 73 % (31-73) Lymphocytes (%) (Auto) 18 % (24-48) Monocytes (%) (Auto) 9 % (0-9) Eosinophils (%) (Auto) 0 % (0-3) Basophils (%) (Auto) 0 % (0-3) Neutrophils # (Auto) 13.1 x10^3uL (1.8-7.7) Lymphocytes # (Auto) 3.1 x10^3/uL (1.0-4.8) Monocytes # (Auto) 1.5 x10^3/uL (0.0-1.1) Eosinophils # (Auto) 0.0 x10^3/uL (0.0-0.7) Basophils # (Auto) 0.0 x10^3/uL (0.0-0.2) Sodium Level 140 mmol/L (136-145) Potassium Level 3.3 mmol/L (3.5-5.1) Chloride Level 103 mmol/L (98-107) Carbon Dioxide Level 28 mmol/L (21-32) Anion Gap 9 (6-14) Blood Urea Nitrogen 19 mg/dL (7-20) Creatinine 0.7 mg/dL (0.6-1.0) Estimated GFR (Cockcroft-Gault) 87.2 Glucose Level 119 mg/dL (70-99) Calcium Level 7.8 mg/dL (8.5-10.1) Medications Active Scripts Medications Dose Route/Sig Max Daily Dose Days Date Category Dose Instructions Tessalon Perle (Benzonatate) 100 Mg Capsule 1 Cap PO TID 12/15/16 Rx Oxycodone-Acetaminophen 5-325 (Oxycodone Hcl/Acetaminophen) 1 Each Tablet 1 Each PO PRN Q6HRS PRN 12/15/16 Rx Combivent Respimat Inhal (Ipratropium/Albuterol Sulfate) 4 Gm Aer.w.adap 1 Inh IH QID PRN 12/15/16 Rx Doxycycline Hyclate 100 Mg Capsule 1 Cap PO BID 12/15/16 Rx [guaiFENesin/CODEINE 100mg/10mg] 5 ML Liquid 5 Ml PO PRN Q6HRS PRN 12/15/16 Rx Prednisone 10 Mg Tablet 10 Mg PO UD 12/15/16 Rx Take 4 tablets by mouth daily for 3 days, then take 2 tablets by mouth daily for 3 days, then take 1 tablet by mouth daily for 3 days, then stop. Alprazolam 1 Mg Tablet 1 Tab PO PRN BID PRN 12/15/16 Rx Levothyroxine Sodium 100 Mcg Tablet 1 Tab PO DAILY 12/15/16 Rx Ibuprofen 200 Mg Tablet 200 Mg PO PRN Q6HRS PRN 02/24/16 Rx Acetaminophen Pm Caplet (Acetaminophen/Diphenhydramine) 1 Each Tablet 2 Each PO HS 11/11/15 Reported Impression . IMPRESSION: 1. Opyci-cr-ryjtisx respiratory failure. 2. Pneumonia with pleurisy. 3. CT CHEST NO PE 4. c diff colitis Plan . D/C HOME IN AM SEE ID NOTE FOR ANTIBX PT HAS 02 A HOME WILFRID FORREST MD Dec 22, 2016 13:08
--- NOTE | 2016-12-22 21:58 | DS ---
DATE OF DISCHARGE: 12/22/2016 CHIEF COMPLAINT: Shortness of breath and hypoxia. HOSPITAL COURSE: The patient is a 56-year-old smoker who had been admitted for several days just prior to readmission, who presented with shortness of breath to the Emergency Room. She had been discharged after an admission for pneumonia on home oxygen. She, however, went home with some friends and ran out of oxygen in the middle of the night. She, therefore, was brought in for further management. She remained severely hypoxic during her hospitalization, requiring a minimum of 3 liters at rest, 6 liters with activity as determined by 6-minute walk. Inhalers/nebulizers were continued. She was seen by both Pulmonology as well as Infectious Disease and regimen was guided accordingly. During her hospitalization, she unfortunately was also diagnosed with C. diff colitis and was started on p.o. vancomycin with good improvement in her symptoms. Because of cost concerns, she was switched to Flagyl at the time of discharge. DISCHARGE PHYSICAL EXAMINATION: VITAL SIGNS: Show a blood pressure of 119/79, heart rate at 73, respiratory rate at 20, she is afebrile, pulse ox 90-94% on 3 liters. GENERAL: This is a well-nourished 56-year-old woman, ill appearing, alert and oriented, in no acute distress. LUNGS: Clear with poor air movement. HEART: Has regular rate and rhythm. ABDOMEN: Has positive bowel sounds, soft, nontender. EXTREMITIES: Show no edema. DISCHARGE DIAGNOSES: Recent pneumonia, severe hypoxia, chronic obstructive pulmonary disease. DISPOSITION: To home with home O2. DISCHARGE MEDICATIONS: Please refer to MAR. DISCHARGE INSTRUCTIONS: The patient will seek help with PCP RADHA. KRISTOFER ALBA MD DR: KERA/nts JOB#: [id number] / [id number] MONICA
== END 2016-12-22 13:26 | disposition home or self-care (01) | DRG 871 ==
LOC: ER 10:22 → 5 NORTH 11:21
PROVIDERS: ADMIT Internal Medicine; ATTEND Internal Medicine
DX: A41.9 Sepsis, unspecified organism (principal); J18.9 Pneumonia, unspecified organism; E43 Unspecified severe protein-calorie malnutrition; I50.33 Acute on chronic diastolic (congestive) heart failure; J96.21 Acute and chronic respiratory failure with hypoxia; A04.7 Enterocolitis due to Clostridium difficile; J44.0 Chronic obstructive pulmonary disease with (acute) lower respiratory infection; J44.1 Chronic obstructive pulmonary disease with (acute) exacerbation; E05.90 Thyrotoxicosis, unspecified without thyrotoxic crisis or storm; F41.9 Anxiety disorder, unspecified; E03.9 Hypothyroidism, unspecified; E83.51 Hypocalcemia; F17.210 Nicotine dependence, cigarettes, uncomplicated; I25.10 Atherosclerotic heart disease of native coronary artery without angina pectoris; F32.9 Major depressive disorder, single episode, unspecified; I08.3 Combined rheumatic disorders of mitral, aortic and tricuspid valves; R59.9 Enlarged lymph nodes, unspecified; K57.90 Diverticulosis of intestine, part unspecified, without perforation or abscess without bleeding; M19.90 Unspecified osteoarthritis, unspecified site; Z87.01 Personal history of pneumonia (recurrent); Z68.23 Body mass index [BMI] 23.0-23.9, adult; Z88.1 Allergy status to other antibiotic agents; Z88.5 Allergy status to narcotic agent; Z90.89 Acquired absence of other organs; Z87.440 Personal history of urinary (tract) infections; Z87.81 Personal history of (healed) traumatic fracture; Z90.710 Acquired absence of both cervix and uterus; Z99.81 Dependence on supplemental oxygen; Z80.0 Family history of malignant neoplasm of digestive organs; Z82.49 Family history of ischemic heart disease and other diseases of the circulatory system; Z83.3 Family history of diabetes mellitus; Z80.1 Family history of malignant neoplasm of trachea, bronchus and lung
CPT/HCPCS: 36415; 71010; 71275; 80048; 80053; 80202; 82306; 82310; 83605; 83735; 83880; 84484; 85007; 85027; 85610; 85730; 87040; 87324; 93005; 93306; 94250; 94620; 94640; 94760; 96374; 96375; J0610; J1885; J1940; J1956; J2543; J2930; J3010; J3370; J7030; J7050; J7512; J7613; J7620; J7626; Q0163; Q9967; 99285-25

== ENCOUNTER 2017-03-14 15:18 | Emergency (ER) | payer OTHER ==
[~2017-03-14 15:18] MED LIST changes: +AMOX1TAB61 PO; +METR500T PO
[2017-03-14 15:23] VITALS: BP 135/85
[2017-03-14] MEDS ORDERED: IV NORMAL SALINE 1000ML BAG 1,000 ML IV SCH (15:48)
--- NOTE | 2017-03-14 15:52 | PHYS DOC ---
Past Medical History Past Medical History: COPD, Hypothyroid, Hepatitis, Pneumonia, UTI Additional Past Medical Histor: HEP C, hypoxemia,ESOPHAGEAL VARISES Past Surgical History: Hysterectomy, Other Additional Past Surgical Histo: THYROID SX, ankle fx Alcohol Use: None Drug Use: None Adult General Chief Complaint Chief Complaint: RIB PAIN HPI HPI Patient is a 56 year old female who presents with complaint of bilateral chest wall pain. Patient states her symptoms started 3 days ago. Patient has history of COPD and states that she had been having increased coughing prior to onset of symptoms. Patient states that the pain hurts along both sides of her rib cage and worsens when she takes a deep breath and when she coughs. Patient denies any associated fevers and patient's cough has been nonproductive. Patient has been taking hydrocodone at home which she takes for chronic pain and states that this has not been helping. Patient rates pain currently is 10 out of 10. Due to worsening symptoms the patient came to the emergency department for evaluation. The patient did express that she wanted to make sure she did not have continued pneumonia as she was admitted to the hospital in November 2016 for treatment of pneumonia. Review of Systems Review of Systems Constitutional: Denies fever or chills [] Eyes: Denies change in visual acuity, redness, or eye pain [] HENT: Denies nasal congestion or sore throat [] Respiratory: Cough[] Cardiovascular: Denies substernal chest pressure or edema [] GI: Denies abdominal pain, nausea, vomiting, bloody stools or diarrhea [] : Denies dysuria or hematuria [] Musculoskeletal: Bilateral rib pain[] Integument: Denies rash or skin lesions [] Neurologic: Denies headache, focal weakness or sensory changes [] Current Medications Current Medications Current Medications Medications (Trade) Dose Ordered Sig/Latonya Start Time Stop Time Status Last Admin Dose Admin Dexamethasone Sodium Phosphate (Decadron) 12 mg 1X ONCE 03/14/17 16:00 03/14/17 16:01 DC 03/14/17 16:00 12 MG Info (Do NOT chart on this entry -- for MONITORING) 1 each PRN DAILY PRN 03/14/17 16:45 03/16/17 16:44 Iohexol (Omnipaque 300 Mg/ml) 75 ml 1X ONCE 03/14/17 16:30 03/14/17 16:39 DC 03/14/17 16:50 75 ML Morphine Sulfate 4 mg 1X ONCE 03/14/17 16:45 03/14/17 16:49 DC 03/14/17 17:12 4 MG Ondansetron HCl (Zofran) 4 mg 1X ONCE 03/14/17 16:45 03/14/17 16:49 DC 03/14/17 17:09 4 MG Orphenadrine Citrate (Norflex) 60 mg 1X ONCE 03/14/17 16:00 03/14/17 16:01 DC 03/14/17 16:00 60 MG Sodium Chloride 1,000 ml @ 1,000 mls/hr Q1H 03/14/17 15:48 03/14/17 16:47 DC 03/14/17 15:48 1,000 MLS/HR Allergies Allergies Allergies Coded Allergies Type Severity Reaction Last Updated Verified clindamycin Allergy Severe Hives 11/10/15 Yes morphine Adverse Reaction Unknown Nausea and Vomiting 03/14/17 Yes Physical Exam Physical Exam Constitutional: Alert, afebrile, appears in moderate discomfort. [] HENT: Normocephalic, atraumatic, bilateral external ears normal, oropharynx moist, no oral exudates, nose normal. [] Eyes: PERRLA, EOMI, conjunctiva normal, no discharge. [] Neck: Normal range of motion, no tenderness, supple, no stridor. [] Cardiovascular:Heart rate regular rhythm, no murmur [] Lungs & Thorax: Bilateral mid axillary chest wall pain causing reproducible symptoms, mildly restricted air movement bilaterally, no wheezes or rales present[] Abdomen: Bowel sounds normal, soft, no tenderness, no masses, no pulsatile masses. [] Skin: Warm, dry, no erythema, no rash. [] Back: No tenderness, no CVA tenderness. [] Extremities: No tenderness, no cyanosis, no clubbing, ROM intact, no edema. [] Neurologic: Alert and oriented X 3, normal motor function, normal sensory function, no focal deficits noted. [] Current Patient Data Vital Signs Vital Signs Date Time Temp Pulse Resp B/P (MAP) Pulse Ox O2 Delivery O2 Flow Rate FiO2 03/14/17 17:12 18 03/14/17 15:23 98.7 92 135/85 (102) 95 Room Air 98.7 Lab Values Laboratory Tests Test 10/22/17 15:35 White Blood Count 18.6 x10^3/uL (4.0-11.0) H Red Blood Count 4.72 x10^6/uL (3.50-5.40) Hemoglobin 15.5 g/dL (12.0-15.5) Hematocrit 45.7 % (36.0-47.0) Mean Corpuscular Volume 97 fL (79-100) Mean Corpuscular Hemoglobin 33 pg (25-35) Mean Corpuscular Hemoglobin Concent 34 g/dL (31-37) Red Cell Distribution Width 13.8 % (11.5-14.5) Platelet Count 340 x10^3/uL (140-400) Neutrophils (%) (Auto) 68 % (31-73) Lymphocytes (%) (Auto) 24 % (24-48) Monocytes (%) (Auto) 7 % (0-9) Eosinophils (%) (Auto) 1 % (0-3) Basophils (%) (Auto) 1 % (0-3) Neutrophils # (Auto) 12.6 x10^3uL (1.8-7.7) H Lymphocytes # (Auto) 4.4 x10^3/uL (1.0-4.8) Monocytes # (Auto) 1.4 x10^3/uL (0.0-1.1) H Eosinophils # (Auto) 0.2 x10^3/uL (0.0-0.7) Basophils # (Auto) 0.1 x10^3/uL (0.0-0.2) Segmented Neutrophils % 56 % (35-66) Band Neutrophils % 5 % (0-9) Lymphocytes % 27 % (24-48) Monocytes % 10 % (0-10) Eosinophils % 1 % (0-5) Basophils % 1 % (0-3) Platelet Estimate Adequate (ADEQUATE) Sodium Level 141 mmol/L (136-145) Potassium Level 4.3 mmol/L (3.5-5.1) Chloride Level 102 mmol/L (98-107) Carbon Dioxide Level 21 mmol/L (21-32) Anion Gap 18 (6-14) H Blood Urea Nitrogen 17 mg/dL (7-20) Creatinine 0.8 mg/dL (0.6-1.0) Estimated GFR (Cockcroft-Gault) 74.7 Glucose Level 95 mg/dL (70-99) Calcium Level 9.0 mg/dL (8.5-10.1) Magnesium Level 2.0 mg/dL (1.8-2.4) Laboratory Tests 03/14/17 15:35 Laboratory Tests 03/14/17 15:35 EKG EKG Interpreted by me: Heart rate 74, sinus rhythm, normal intervals, normal axis, no acute ST/T-wave abnormalities present[] Radiology/Procedures Radiology/Procedures [address] [address] IMAGING REPORT Signed PATIENT: AVA BARNEY ACCOUNT: [id number] : 1960 LOCATION: ER AGE: 56 SEX: F EXAM STATUS: PRE ER ORD. PHYSICIAN: WOLF HILLIARD MD REASON: cough, chest wall pain PROCEDURE: PORTABLE CHEST 1V AP portable chest radiograph 03/14/2017 Clinical History: Cough and chest wall pain. An AP portable erect digital radiograph of the chest was obtained. Comparison study is dated 12/16/2016. The cardiac silhouette is normal in size and configuration. Atherosclerotic calcification of the thoracic aorta is seen. The thoracic aorta is mildly tortuous. Focal area of infiltrate is seen involving the right lower lobe which has improved since the previous examination. No acute pulmonary infiltrate is seen. No pneumothorax or pleural effusion is noted. The osseous structures are unchanged. Impression: Improving right lower lobe infiltrate. No acute pulmonary infiltrate is seen. DICTATED and SIGNED BY: ROSALBA KEYES MD DATE: 03/14/178 CC: WOLF HILLIARD MD; [facility] [place] [id number] [place], [place] [id number] IMAGING REPORT Signed PATIENT: AVA BARNEY ACCOUNT: [id number] : 1960 LOCATION: ER AGE: 56 SEX: F EXAM STATUS: REG ER ORD. PHYSICIAN: WOLF HILLIARD MD REASON: right lower lobe opacity, mass versus infiltrate PROCEDURE: CT CHEST W/CONTRAST CT scan of the chest with contrast 03/14/2017 Clinical history right lung infiltrate. Cough and chest wall pain. Technique: After the intravenous administration of 75 cc of Isovue 370, contiguous, 5 mm axial sections were obtained through the chest. One or more of the following individualized dose reduction techniques were utilized for this study: 1. Automated exposure control. 2. Adjustment of the mA and/or kV according to patient size. 3. Use of iterative reconstruction technique. Findings: Comparison study is dated 12/16/2016. Atherosclerotic calcification of the thoracic aorta and its branches is noted. The thoracic aorta is tortuous. It tapers normally. The heart is normal in size. Prominent mediastinal and hilar lymph nodes are seen which measure 1 to 1.2 cm in size. These have not significantly changed. Areas of infiltrate/atelectasis are seen involving the right upper lobe, right middle lobe, right lower lobe and left lower lobe. These have improved since the previous examination. A small area of probable scarring is seen involving the right upper lobe. Emphysematous changes are again seen involving both lungs. No pneumothorax is seen. The small bilateral pleural effusions seen on previous examination have resolved. Images through the upper abdomen are within normal limits. The osseous structures are unchanged. Impression: Interval improvement in the focal areas of infiltrate involving right upper lobe, right middle lobe, right lower lobe and left lower lobe as outlined above. No acute abnormality is seen. DICTATED and SIGNED BY: ROSALBA KEYES MD DATE: 03/14/17 1658 CC: WOLF HILLIARD MD; GABRIELLA PEGUERO ~ [] Course & Med Decision Making Course & Med Decision Making Pertinent Labs and Imaging studies reviewed. (See chart for details) The patient was treated with IM Norflex, IV Decadron, Zofran, and morphine for her symptoms. The patient's chest x-ray showed continued right lower lobe opacity improved from previous. Due to patient's acute pain, a CT chest was ordered to ensure no evidence of possible lung mass. Patient's CT scan did not reveal evidence of this. The patient's symptoms are likely due to intercostal muscle strain from coughing secondary to the patient's COPD. On reevaluation, the patient's symptoms have improved and patient is feeling better. Patient's vital signs are stable. The patient will continue on Medrol and cyclobenzaprine for continued treatment of chest wall pain with recommended follow-up in 2-3 days a primary doctor for reevaluation. Advised return emergency department for any worsening symptoms. Patient voiced understanding and in agreement with treatment plan. Dragon Disclaimer Dragon Disclaimer This electronic medical record was generated, in whole or in part, using a voice recognition dictation system. Departure Departure Impression: Primary Impression: Chest wall pain Additional Impression: COPD (chronic obstructive pulmonary disease) Disposition: HOME, SELF-CARE Condition: IMPROVED Referrals: DAY ELIAS (PCP) Patient Instructions: Chest Wall Pain, Chronic Obstructive Pulmonary Disease Additional Instructions: Follow-up he primary doctor in 2-3 days for reevaluation. Return to the emergency department for any worsening symptoms. Scripts Methylprednisolone (MEDROL) 4 Mg Tab.ds.pk 1 PKG PO UD, #1 PKG Prov: WOLF HILLIARD MD 03/14/17 Cyclobenzaprine Hcl (CYCLOBENZAPRINE HCL) 10 Mg Tablet 1 TAB PO TID Y for MUSCLE PAIN, #30 TAB Prov: WOLF HILLIARD MD 03/14/17 Problem Qualifiers Additional Impression: COPD (chronic obstructive pulmonary disease) COPD type: unspecified COPD Qualified Codes: J44.9 - Chronic obstructive pulmonary disease, unspecified WOLF HILLIARD MD Mar 14, 2017 15:52
[2017-03-14 15:54] LABS: BASO # 0.1 x10^3/uL (0.0-0.2); BASO % 1 % (0-3); EOS % 1 % (0-3); HEMATOCRIT 45.7 % (36.0-47.0); HEMOGLOBIN 15.5 g/dL (12.0-15.5); LYMPH # 4.4 x10^3/uL (1.0-4.8); LYMPH % 24 % (24-48); MEAN CORPUSCULAR HEMOGLOBIN 33 pg (25-35); MEAN CORPUSCULAR HGB CONC 34 g/dL (31-37); MEAN CORPUSCULAR VOLUME 97 fL (79-100); MONO % 7 % (0-9); NEUT % 68 % (31-73); PLATELET COUNT 340 x10^3/uL (140-400); RED BLOOD COUNT 4.72 x10^6/uL (3.50-5.40); RED CELL DISTRIBUTION WIDTH 13.8 % (11.5-14.5); WHITE BLOOD COUNT 18.6 x10^3/uL (4.0-11.0)
[2017-03-14] MEDS ORDERED: ORPHENADRINE CITRATE 60 MG/2 ML VIAL. IM ONE (16:00)
[2017-03-14] MEDS ORDERED: DEXAMETHASONE SOD PHOS 20 MG/5 ML VIAL. IV ONE (16:00)
[2017-03-14 16:15] LABS: % BASOS 1 % (0-3); % EOS 1 % (0-5)
[2017-03-14 16:16] LABS: PLT ESTIMATE ADEQUATE (ADEQUATE)
[2017-03-14 16:17] LABS: CREATININE 0.8 mg/dL (0.6-1.0); GFR 74.7; POTASSIUM 4.3 mmol/L (3.5-5.1)
--- NOTE | 2017-03-14 16:25 | RAD ---
AP portable chest radiograph 03/14/2017 Clinical History: Cough and chest wall pain. An AP portable erect digital radiograph of the chest was obtained. Comparison study is dated 12/16/2016. The cardiac silhouette is normal in size and configuration. Atherosclerotic calcification of the thoracic aorta is seen. The thoracic aorta is mildly tortuous. Focal area of infiltrate is seen involving the right lower lobe which has improved since the previous examination. No acute pulmonary infiltrate is seen. No pneumothorax or pleural effusion is noted. The osseous structures are unchanged. Impression: Improving right lower lobe infiltrate. No acute pulmonary infiltrate is seen.
[2017-03-14] MEDS ORDERED: IOHEXOL 300 MG/ML 75 ML VIAL IV ONE (16:30)
[2017-03-14] MEDS ORDERED: MORPHINE SULFATE 4 MG/ML DISP.SYRIN. IV ONE (16:45)
[2017-03-14] MEDS ORDERED: CONTRAST GIVEN MC PRN (16:45)
[2017-03-14] MEDS ORDERED: ONDANSETRON PF 4 MG/2 ML VIAL. IV ONE (16:45)
--- NOTE | 2017-03-14 17:07 | RAD ---
CT scan of the chest with contrast 03/14/2017 Clinical history right lung infiltrate. Cough and chest wall pain. Technique: After the intravenous administration of 75 cc of Isovue 370, contiguous, 5 mm axial sections were obtained through the chest. One or more of the following individualized dose reduction techniques were utilized for this study: 1. Automated exposure control. 2. Adjustment of the mA and/or kV according to patient size. 3. Use of iterative reconstruction technique. Findings: Comparison study is dated 12/16/2016. Atherosclerotic calcification of the thoracic aorta and its branches is noted. The thoracic aorta is tortuous. It tapers normally. The heart is normal in size. Prominent mediastinal and hilar lymph nodes are seen which measure 1 to 1.2 cm in size. These have not significantly changed. Areas of infiltrate/atelectasis are seen involving the right upper lobe, right middle lobe, right lower lobe and left lower lobe. These have improved since the previous examination. A small area of probable scarring is seen involving the right upper lobe. Emphysematous changes are again seen involving both lungs. No pneumothorax is seen. The small bilateral pleural effusions seen on previous examination have resolved. Images through the upper abdomen are within normal limits. The osseous structures are unchanged. Impression: Interval improvement in the focal areas of infiltrate involving right upper lobe, right middle lobe, right lower lobe and left lower lobe as outlined above. No acute abnormality is seen.
[2017-03-14] MEDS ORDERED: CYCL10TA2 PO (17:52)
[2017-03-14] MEDS ORDERED: METH4TAB2 PO (17:52)
--- NOTE | 2017-03-15 06:17 | EKG ---
[facility] [address] [place] [address] Test Date: 2017-03-14 Test Time: 15:55:10 Pat Name: AVA BARNEY Department: Room: Gender: F [facility] Supervisor: : 1960 Requested By: WOLF HILLIARD Order Number: [id number] Reading MD: Sanjana Howard Measurements Intervals [place] Rate: 74 P: 62 UT: 128 QRS: 71 QRSD: 72 T: 56 QT: 396 QTc: 445 Interpretive Statements SINUS RHYTHM NORMAL EKG Electronically Signed On 03-15-2017 12:08:43 CDT by Sanjana Howard
== END 2017-03-14 18:07 | disposition home or self-care (01) ==
LOC: ER 15:18
DX: R07.89 Other chest pain (principal); J44.9 Chronic obstructive pulmonary disease, unspecified; E03.9 Hypothyroidism, unspecified; Z90.710 Acquired absence of both cervix and uterus; Z86.19 Personal history of other infectious and parasitic diseases; Z87.09 Personal history of other diseases of the respiratory system; Z87.19 Personal history of other diseases of the digestive system; Z88.1 Allergy status to other antibiotic agents; Z88.5 Allergy status to narcotic agent
CPT/HCPCS: 36415; 71010; 71260; 80048; 83735; 85007; 85025; 93005; 96361; 96372; 96374; 96375; 99285; J1100; J2270; J2360; J2405; J7030; Q9967